=== PATIENT | male | born 1935 | race Caucasian/White ===

== ENCOUNTER 2016-11-25 12:59 | Emergency (ER) | payer MEDICARE, BC ==
[2016-11-25] MEDS ORDERED: Sodium Chloride 0.9% 10 ML Syringe FLUSH PRN (13:20)
[2016-11-25] MEDS ORDERED: methylPREDNISolone Sodium Succinate 125 MG/2 ML SDV IVPUSH ONE (13:21)
--- NOTE | 2016-11-25 15:22 | CR ---
Chest: Two views of the chest were obtained. Comparison: No previous chest x-ray. Diaphragms are flattened on the lateral view compatible with emphysematous change. Lung markings are slightly increased most likely due to mild fibrosis. No definite acute appearing infiltrates are seen. Bony structures are within normal limits for the patient's age. Impression: 1. Emphysematous change. 2. Mild increased lung markings most likely representing mild fibrosis. 3. Nothing acute is appreciated on two-view chest x-ray. Note: I do not have the benefit of any previous chest x-rays for comparison. Diagnostic code #2
[2016-11-25] MEDS ORDERED: Albuterol/Ipratropium 3.0-0.5 MG/3 ML Neb Soln NEB ONE (15:56)
--- NOTE | 2016-11-25 16:00 | EDM.PDOC ---
ED HPI GENERAL MEDICAL PROBLEM - General Chief Complaint: Respiratory Problem Stated Complaint: SOB Time Seen by Provider: 11/25/16 13:11 Source of Information: Reports: Patient, Family History Limitations: Reports: No Limitations - History of Present Illness INITIAL COMMENTS - FREE TEXT/NARRATIVE: The patient presents with increased shortness of breath over the past 3 weeks. He has been diagnosed with COPD. He is now oxygen dependent for the past 6 months. He is more short of breath at rest and with exertion. He has a cough that was productive at first but it is hard to get anything up now. He has some chest tightness at times. He has no fever or chills. He has no abdominal pain, nausea, or vomiting. He was given an antibiotic about 4 weeks ago and a steroid. He took the last dose of steroid today. It was prednisone 10mg. Onset: Gradual Duration: Week(s): (3) Location: Reports: Chest Quality: Reports: Other (Tightness at times) Severity: Mild Improves with: Reports: None Worsens with: Reports: None Associated Symptoms: Reports: Chest Pain, Cough, Shortness of Breath. Denies: Fever/Chills, Nausea/Vomiting - Related Data Allergies Allergy/AdvReac Type Severity Reaction Status Date / Time Iodinated Contrast Media - Allergy Hives Verified 11/25/16 13:08 Oral and blood thinner Allergy Other Uncoded 11/25/16 13:08 Home Meds: Home Meds Albuterol [Ventolin HFA] 2 - 4 inh INH Q4H PRN 11/25/16 [History] Budesonide/Formoterol [Symbicort 160-4.5 MCG] 2 inh INH BID 11/25/16 [History] Chlorthalidone 12.5 mg PO DAILY 11/25/16 [History] Levofloxacin [Levaquin] 750 mg PO DAILY #7 tablet 11/25/16 [Rx] Metoprolol Succinate 25 mg PO DAILY 11/25/16 [History] Prednisone [IJD: Prednisone] 10 mg PO DAILY #48 tab 11/25/16 [Rx] Past Medical History Cardiovascular History: Reports: Hypertension Respiratory History: Reports: COPD Social & Family History - Tobacco Use Smoking Status *Q: Former Smoker Used Tobacco, but Quit: Yes Month Tobacco Last Used: 2009 - Caffeine Use Caffeine Use: Reports: None - Recreational Drug Use Recreational Drug Use: No ED ROS GENERAL - Review of Systems Review Of Systems: See Below Constitutional: Reports: Fever, Chills HEENT: Reports: No Symptoms Respiratory: Reports: Shortness of Breath, Cough Cardiovascular: Reports: Chest Pain Endocrine: Reports: No Symptoms GI/Abdominal: Reports: No Symptoms : Reports: No Symptoms Musculoskeletal: Reports: No Symptoms Skin: Reports: No Symptoms Neurological: Reports: No Symptoms ED EXAM, GENERAL - Physical Exam Exam: See Below Exam Limited By: No Limitations General Appearance: Alert, No Apparent Distress Ears: Normal External Exam Nose: Normal Inspection Head: Atraumatic, Normocephalic Neck: Normal Inspection Respiratory/Chest: No Respiratory Distress, Decreased Breath Sounds Cardiovascular: Regular Rate, Rhythm, No Edema, No Murmur GI/Abdominal: Soft, Non-Tender, No Organomegaly, No Mass Extremities: Normal Inspection Neurological: Alert, Oriented, No Motor/Sensory Deficits EKG INTERPRETATION EKG Date: 11/25/16 Time: 13:33 Rhythm: NSR Rate (beats/min): 90 [place]: normal P-wave: present QRS: normal ST-T: normal QT: normal EKG Interpretation Comments: atrial premature complexes Course - Vital Signs Last Recorded V/S: Last Vital Signs Temp 97.5 F 11/25/16 13:03 Pulse 102 H 11/25/16 13:03 Resp 28 H 11/25/16 13:03 BP 160/88 H 11/25/16 13:03 Pulse Ox 96 11/25/16 16:03 - Orders/Labs/Meds Orders: Active Orders 24 hr Category Date Time Status Cardiac Monitoring [RC] . DIRECTED Care 11/25/16 13:20 Active EKG Documentation Completion [RC] STAT Care 11/25/16 13:20 Active Oxygen Therapy [RC] PRN Care 11/25/16 13:20 Active Peripheral IV Care [RC] . DIRECTED Care 11/25/16 13:21 Active RT Aerosol Therapy [RC] ASDIRECTED Care 11/25/16 15:56 Active Sodium Chloride 0.9% [Saline Flush] Med 11/25/16 13:20 Active 10 ml FLUSH ASDIRECTED PRN Peripheral IV Insertion Adult [OM.PC] Stat Oth 11/25/16 13:20 Ordered Medication Orders Sodium Chloride (Saline Flush) 10 ml FLUSH ASDIRECTED PRN PRN Reason: Keep Vein Open Last Admin: 11/25/16 13:43 Dose: 10 ml Labs: Laboratory Tests 11/25/16 11/25/16 11/25/16 Range/Units 13:40 13:40 13:40 WBC 12.35 H (4.23-9.07) K/mm3 RBC 4.81 (4.63-6.08) M/mm3 Hgb 14.0 (13.7-17.5) gm/L Hct 40.0 L (40.1-51.0) % MCV 83.2 (79.0-92.2) fl MCH 29.1 (25.7-32.2) pg MCHC 35.0 (32.2-35.5) g/dl RDW Std Deviation 39.2 (35.1-43.9) fL Plt Count 316 (163-337) K/mm3 MPV 8.3 L (9.4-12.3) fl Neut % (Auto) 85.7 H (34.0-67.9) % Lymph % (Auto) 3.7 L (21.8-53.1) % [place] % (Auto) 7.1 (5.3-12.2) % Eos % (Auto) 0.1 L (0.8-7.0) Baso % (Auto) 0.2 (0.1-1.2) % Neut # (Auto) 10.59 H (1.78-5.38) K/mm3 Lymph # (Auto) 0.46 L (1.32-3.57) K/mm3 [place] # (Auto) 0.88 H (0.30-0.82) K/mm3 Eos # (Auto) 0.01 L (0.04-0.54) K/mm3 Baso # (Auto) 0.02 (0.01-0.08) K/mm3 Manual Slide Review Abnormal smear D-Dimer, Quantitative 0.52 (0.19-0.59) mg/L Sodium 126 L (136-145) mEq/L Potassium 3.3 L (3.5-5.1) mEq/L Chloride 89 L (98-107) mEq/L Carbon Dioxide 28 (21-32) mEq/L Anion Gap 12.3 (5-15) BUN 18 (7-18) mg/dL Creatinine 1.3 (0.7-1.3) mg/dL Est Cr Clr Drug Dosing 45.32 mL/min Estimated GFR (MDRD) 53 (>60) mL/min BUN/Creatinine Ratio 13.8 L (14-18) Glucose 133 H (83-115) mg/dL Calcium 9.3 (8.5-10.1) mg/dL Total Bilirubin 1.0 (0.2-1.0) mg/dL AST 31 (15-37) U/L ALT 42 (16-63) U/L Alkaline Phosphatase 67 (46-116) U/L Troponin I 0.052 (0.00-0.056) ng/mL B-Natriuretic Peptide (0-100) pg/mL Total Protein 6.7 (6.4-8.2) g/dl Albumin 3.3 L (3.4-5.0) g/dl Globulin 3.4 gm/dL Albumin/Globulin Ratio 1.0 (1-2) 11/25/16 Range/Units 13:40 WBC (4.23-9.07) K/mm3 RBC (4.63-6.08) M/mm3 Hgb (13.7-17.5) gm/L Hct (40.1-51.0) % MCV (79.0-92.2) fl MCH (25.7-32.2) pg MCHC (32.2-35.5) g/dl RDW Std Deviation (35.1-43.9) fL Plt Count (163-337) K/mm3 MPV (9.4-12.3) fl Neut % (Auto) (34.0-67.9) % Lymph % (Auto) (21.8-53.1) % [place] % (Auto) (5.3-12.2) % Eos % (Auto) (0.8-7.0) Baso % (Auto) (0.1-1.2) % Neut # (Auto) (1.78-5.38) K/mm3 Lymph # (Auto) (1.32-3.57) K/mm3 [place] # (Auto) (0.30-0.82) K/mm3 Eos # (Auto) (0.04-0.54) K/mm3 Baso # (Auto) (0.01-0.08) K/mm3 Manual Slide Review D-Dimer, Quantitative (0.19-0.59) mg/L Sodium (136-145) mEq/L Potassium (3.5-5.1) mEq/L Chloride (98-107) mEq/L Carbon Dioxide (21-32) mEq/L Anion Gap (5-15) BUN (7-18) mg/dL Creatinine (0.7-1.3) mg/dL Est Cr Clr Drug Dosing mL/min Estimated GFR (MDRD) (>60) mL/min BUN/Creatinine Ratio (14-18) Glucose (83-115) mg/dL Calcium (8.5-10.1) mg/dL Total Bilirubin (0.2-1.0) mg/dL AST (15-37) U/L ALT (16-63) U/L Alkaline Phosphatase (46-116) U/L Troponin I (0.00-0.056) ng/mL B-Natriuretic Peptide 221 H (0-100) pg/mL Total Protein (6.4-8.2) g/dl Albumin (3.4-5.0) g/dl Globulin gm/dL Albumin/Globulin Ratio (1-2) Meds: Medications Generic Name Dose Route Start Last Admin Trade Name Freq PRN Reason Stop Dose Admin Sodium Chloride 10 ml 11/25/16 13:20 11/25/16 13:43 Saline Flush FLUSH 10 ml ASDIRECTED PRN Administration Keep Vein Open Discontinued Medications Generic Name Dose Route Start Last Admin Trade Name Freq PRN Reason Stop Dose Admin Albuterol/Ipratropium 3 ml 11/25/16 15:56 11/25/16 16:02 Duoneb 3.0-0.5 Mg/3 Ml NEB 11/25/16 15:57 3 ml ONETIME ONE Administration Methylprednisolone Sodium Succinate 125 mg 11/25/16 13:21 11/25/16 13:43 Solu-Medrol IVPUSH 11/25/16 13:22 125 mg ONETIME ONE Administration - Re-Assessments/Exams Free Text/Narrative Re-Assessment/Exam: 11/25/16 16:10 I ordered oxygen, IV saline lock, EKG, CXR, labs and solumedrol 125mg IV. His EKG shows a NSR with no acute changes. His CXR shows emphysematous change. Mild increased lung markings most likely representing mild fibrosis. His 11/25/16 16:11 His WBC is elevated at 12.35. His d-dimer is negative. His Na was low at 126. His K was low at 3.3. His troponin was negative. His BNP was slightly elevated at 221. I ordered a duo neb. He still feels short of breath. I called Dr Ellis the concrete stone fabricator personnel adviser and she recommended more steroids and some incruse. I do not think a I can send him home at this time. I will see if I can get him admitted. 11/25/16 17:[address] Woodward and she wanted him observation because it does not appear that he will meet inpatient criteria. He did not want to be observation. I will give him some levaquin and steroids at home. I will have Dr Campo check on the incruse. Departure - Departure Time of Disposition: 17:20 Disposition: Home, Self-Care 01 Condition: good Clinical Impression: COPD exacerbation - Discharge Information Prescriptions: Levofloxacin [Levaquin] 750 mg PO DAILY #7 tablet Prednisone [IJD: Prednisone] 10 mg PO DAILY #48 tab Referrals: Ritchie Campo Jr, MD [Primary Care Provider] - 1 Week Forms: ED Department Discharge Additional Instructions: Take the medication as prescribed. Please return if you are worse. Follow up with Dr Campo next week. - My Orders Last 24 Hours: My Active Orders 11/25/16 13:20 Cardiac Monitoring [RC] . DIRECTED EKG Documentation Completion [RC] STAT Oxygen Therapy [RC] PRN Sodium Chloride 0.9% [Saline Flush] 10 ml FLUSH ASDIRECTED PRN Peripheral IV Insertion Adult [OM.PC] Stat 11/25/16 13:21 Peripheral IV Care [RC] . DIRECTED 11/25/16 15:56 RT Aerosol Therapy [RC] ASDIRECTED - Assessment/Plan Last 24 Hours: My Active Orders 11/25/16 13:20 Cardiac Monitoring [RC] . DIRECTED EKG Documentation Completion [RC] STAT Oxygen Therapy [RC] PRN Sodium Chloride 0.9% [Saline Flush] 10 ml FLUSH ASDIRECTED PRN Peripheral IV Insertion Adult [OM.PC] Stat 11/25/16 13:21 Peripheral IV Care [RC] . DIRECTED 11/25/16 15:56 RT Aerosol Therapy [RC] ASDIRECTED
[2016-11-25 18:42] VITALS: BP 147/106
== END 2016-11-25 17:49 | disposition home or self-care (01) ==
LOC: JD.ED 12:59
DX: J44.1 Chronic obstructive pulmonary disease with (acute) exacerbation (principal); I10 Essential (primary) hypertension; Z79.899 Other long term (current) drug therapy; Z87.891 Personal history of nicotine dependence; Z91.041 Radiographic dye allergy status
CPT/HCPCS: 36415; 71020; 80053; 83880; 84484; 85025; 85379; 93005; 94664; 96374; 99285; J2930; J7050; 99284

== ENCOUNTER 2017-01-14 13:44 | Emergency (ER) | payer MEDICARE, BC ==
[2017-01-14] MEDS ORDERED: Albuterol/Ipratropium 3.0-0.5 MG/3 ML Neb Soln NEB ONE (14:32)
--- NOTE | 2017-01-14 14:38 | EDM.PDOC ---
ED HPI GENERAL MEDICAL PROBLEM - General Chief Complaint: Respiratory Problem Stated Complaint: SOB Time Seen by Provider: 01/14/17 14:18 Source of Information: Reports: Patient, Old Records (recent ER visit) History Limitations: Reports: No Limitations - History of Present Illness INITIAL COMMENTS - FREE TEXT/NARRATIVE: 81 year old male presents for evaluation and treatment of congestion and a cough. Patient has a past medical history of COPD. Reports he is on nebulizers, symbicort and albuterol inhaler as needed. States he has been using the albuterol neb every 4 hours. Patient reports today he feels increased congestion and that he cannot blow out. States he first appreciated the increased congestion and inability to blow out today. He is on 3L oxygen via nasal canula at home. Has not noticed any change in his symptoms with increasing the oxygen. Denies any productive cough, fevers or chest pain. Reports his chest feels heavy, reports this is chronic. Patient has not seen pulmonary in over a year. Scheduled to see them in February. Patient reports he saw his PCP, Dr. Campo, recently and was started on mucinex, has not noticed any improvement in his symptoms. Review of the patient's most recent ER visit shows he was started on prednisone and levaquin. Pulmonology was consulted. Recommended starting incruse. He was instructed to follow-up with his PC P about starting the incruse. Does not sound that he has started the incruse. Patient informs me he did take the antibiotics to completion but only tooke one dose of the prednisone. He does not like the way prednisone makes him feel and the side effects therefore he refuses to take further steroids. Treatments POLITICAL CONSULTANT: Reports: Other (see below) Other Treatments POLITICAL CONSULTANT: inhaler and nebs - Related Data Allergies Allergy/AdvReac Type Severity Reaction Status Date / Time Iodinated Contrast- Oral and Allergy Hives Verified 11/25/16 13:08 IV Dye blood thinner Allergy Other Uncoded 11/25/16 13:08 Home Meds: Home Meds Albuterol [Ventolin HFA] 2 - 4 inh INH Q4H PRN 11/25/16 [History] Budesonide/Formoterol [Symbicort 160-4.5 MCG] 2 inh INH BID 11/25/16 [History] Chlorthalidone 12.5 mg PO DAILY 11/25/16 [History] Metoprolol Succinate 25 mg PO DAILY 11/25/16 [History] Potassium Chloride 20 meq PO DAILY #5 tablet.er 01/14/17 [Rx] Umeclidinium [place] [Incruse Ellipta] 62.5 mcg IN DAILY #1 inhaler 01/14/17 [Rx ] Past Medical History Cardiovascular History: Reports: Hypertension Respiratory History: Reports: COPD, Other (See Below) Other Respiratory History: emphysema Psychiatric History: Reports: Anxiety, Depression - Past Surgical History GI Surgical History: Reports: Cholecystectomy Musculoskeletal Surgical History: Reports: Other (See Below) Other Musculoskeletal Surgeries/Procedures:: hip pain and shoulder pain-goes to a chiropractor on occasion Social & Family History - Tobacco Use Smoking Status *Q: Former Smoker Used Tobacco, but Quit: Yes Month Tobacco Last Used: 6 - Caffeine Use Caffeine Use: Reports: Coffee - Recreational Drug Use Recreational Drug Use: No ED ROS GENERAL - Review of Systems Review Of Systems: See Below Constitutional: Denies: Fever Respiratory: Reports: Shortness of Breath, Cough. Denies: Sputum Cardiovascular: Denies: Chest Pain (reports chest heaviness ) ED EXAM, GENERAL - Physical Exam Exam: See Below Exam Limited By: No Limitations General Appearance: Alert, WD/WN, No Apparent Distress Ears: Normal External Exam, Normal Canal, Normal TMs, Hearing Loss Nose: Normal Inspection Throat/Mouth: Normal Inspection, Normal Lips, Normal Gums, Normal Oropharynx, Normal Voice, No Airway Compromise Respiratory/Chest: No Respiratory Distress, Lungs Clear, No Accessory Muscle Use , Decreased Breath Sounds (generalized throughtout) Cardiovascular: Normal Peripheral Pulses, Regular Rate, Rhythm, No Murmur Neurological: Alert, Oriented, Normal Cognition Psychiatric: Normal Affect, Normal Mood Skin Exam: Warm, Dry, Normal Color EKG INTERPRETATION EKG Date: 01/14/17 Time: 14:45 Rhythm: NSR Rate (Beats/Min): 74 [place]: Normal P-Wave: Present QRS: Normal ST-T: Normal QT: Normal Comparison: No Change EKG Interpretation Comments: NSR at 74 bpm. No acute changes. Reviewed by myself and Dr. Duke. Course - Vital Signs Last Recorded V/S: Last Vital Signs Temp 36.9 C 01/14/17 13:54 Pulse 80 01/14/17 17:16 Resp 20 01/14/17 17:16 BP 129/70 01/14/17 17:16 Pulse Ox 99 01/14/17 17:16 - Orders/Labs/Meds Labs: Laboratory Tests 01/14/17 01/14/17 Range/Units 14:45 14:45 WBC 9.53 H (4.23-9.07) K/mm3 RBC 4.28 L (4.63-6.08) M/mm3 Hgb 12.1 L (13.7-17.5) gm/L Hct 36.5 L (40.1-51.0) % MCV 85.3 (79.0-92.2) fl MCH 28.3 (25.7-32.2) pg MCHC 33.2 (32.2-35.5) g/dl RDW Std Deviation 44.0 H (35.1-43.9) fL Plt Count 347 H (163-337) K/mm3 MPV 8.5 L (9.4-12.3) fl Neutrophils % (Manual) 79 H (40-60) % Band Neutrophils % 0 (0-10) % Lymphocytes % (Manual) 17 L (20-40) % Atypical Lymphs % 0 % Monocytes % (Manual) 3 (2-10) % Eosinophils % (Manual) 1 (0.8-7.0) % Basophils % (Manual) 0 L (0.2-1.2) Platelet Estimate Adequate RBC Morph Comment Normal Sodium 130 L (136-145) mEq/L Potassium 2.9 L (3.5-5.1) mEq/L Chloride 93 L (98-107) mEq/L Carbon Dioxide 29 (21-32) mEq/L Anion Gap 10.9 (5-15) BUN 10 (7-18) mg/dL Creatinine 1.2 (0.7-1.3) mg/dL Est Cr Clr Drug Dosing 49.10 mL/min Estimated GFR (MDRD) 58 (>60) mL/min BUN/Creatinine Ratio 8.3 L (14-18) Glucose 110 (83-115) mg/dL Calcium 8.8 (8.5-10.1) mg/dL Total Bilirubin 0.7 (0.2-1.0) mg/dL AST 26 (15-37) U/L ALT 25 (16-63) U/L Alkaline Phosphatase 76 (46-116) U/L CK-MB (CK-2) 2.9 (0-3.6) ng/ml Troponin I 0.030 (0.00-0.056) ng/mL C-Reactive Protein 0.5 (<1.0) mg/dL Total Protein 7.0 (6.4-8.2) g/dl Albumin 3.5 (3.4-5.0) g/dl Globulin 3.5 gm/dL Albumin/Globulin Ratio 1.0 (1-2) Meds: Medications Discontinued Medications Generic Name Dose Route Start Last Admin Trade Name Arin PRN Reason Stop Dose Admin Albuterol/Ipratropium 3 ml 01/14/17 14:32 01/14/17 14:50 Duoneb 3.0-0.5 Mg/3 Ml NEB 01/14/17 14:33 3 ml ONETIME ONE Administration Potassium Chloride 40 meq 01/14/17 16:04 01/14/17 16:12 Klor-Con M20 PO 01/14/17 16:05 40 meq ONETIME ONE Administration - Radiology Interpretation Free Text/Narrative:: chest 2 view shows emphyseamatous change. No acute intrathoracic process. - Re-Assessments/Exams Free Text/Narrative Re-Assessment/Exam: 01/14/17 16:21 Labs returned wbc is 9.53 with no bands, hgb is 12.1 and plts are 347 sodium is 130, potassium is 2.9 and chloride is 93. Patient was given 40 meq potassium here in the ER. creatinine is 1.2. glucose is 110 ckmb is within normal limits at 2.9 trop is within normal limits at 0.030 CRP is 0.5 I reviewed the labs, ekg and chest xray with the patient. I feel he is not having an exacerbation but his disease coarse is worsening. I feel it would be appropriate to start the incruse and see pulmonology as planned. Prednisone leatha may help with his symptoms but he refuses to take any more steroids. Discharge instructions as documented. Departure - Departure Time of Disposition: 16:36 Disposition: Home, Self-Care 01 Condition: Fair Clinical Impression: COPD (chronic obstructive pulmonary disease), Hypokalemia - Discharge Information Prescriptions: Potassium Chloride 20 meq PO DAILY #5 tablet.er Umeclidinium [place] [Incruse Ellipta] 62.5 mcg IN DAILY #1 inhaler Instructions: Hypokalemia, Chronic Obstructive Pulmonary Disease, [id number] Referrals: Ritchie Campo Jr, MD [Primary Care Provider] - Forms: ED Department Discharge Additional Instructions: Take potassium daily for 5 days. your first dose was given in the ER. may start this prescription tomorrow. Start the incruse daily. 1 puff daily. Follow-up with Dr. Campo this week or early next week. Continue with your current medications. Please return to the ER if your symptoms change or worsen.
[2017-01-14] MEDS ORDERED: Potassium Chloride 20 MEQ Tab.ER PO ONE (16:04)
[2017-01-14 17:18] VITALS: BP 129/70
--- NOTE | 2017-01-15 06:50 | CR ---
Chest: Two views of the chest were obtained. Comparison: Previous chest x-ray of 11/25/16. Heart size and mediastinum are normal. Lung markings mildly increased which appear stable. No acute infiltrates are seen. Bony structures are osteopenic. Impression: 1. Emphysematous change. Other stable findings. Nothing acute is seen. Diagnostic code #2
== END 2017-01-14 16:45 | disposition home or self-care (01) ==
LOC: JD.ED 13:44
DX: J43.9 Emphysema, unspecified (principal); E87.6 Hypokalemia; I10 Essential (primary) hypertension; F32.9 Major depressive disorder, single episode, unspecified; F41.9 Anxiety disorder, unspecified; Z87.891 Personal history of nicotine dependence; Z88.8 Allergy status to other drugs, medicaments and biological substances; Z91.041 Radiographic dye allergy status; Z79.899 Other long term (current) drug therapy
CPT/HCPCS: 36415; 71020; 80053; 82553; 84484; 85025; 86140; 93005; 94664; 99285; A9270; 99284

== ENCOUNTER 2017-01-24 14:22 | Inpatient (IN) | payer MEDICARE, BC ==
[2017-01-24] MEDS ORDERED: Sodium Chloride 0.9% 10 ML Syringe FLUSH PRN (15:06)
[2017-01-24] MEDS ORDERED: Albuterol/Ipratropium 3.0-0.5 MG/3 ML Neb Soln NEB ONE (15:07)
[2017-01-24] MEDS ORDERED: methylPREDNISolone Sodium Succinate 125 MG/2 ML SDV IVPUSH ONE (15:07)
--- NOTE | 2017-01-24 16:09 | EDM.PDOC ---
ED HPI GENERAL MEDICAL PROBLEM - General Chief Complaint: Respiratory Problem Stated Complaint: COPD CANT BREATHE Time Seen by Provider: 01/24/17 14:47 Source of Information: Reports: Patient History Limitations: Reports: No Limitations - History of Present Illness INITIAL COMMENTS - FREE TEXT/NARRATIVE: The patient presents with shortness of breath. This has been going on for a few months. He has been seen here twice and seen his doctor a few times. He has been on steroids a few times. Back in November he was here and I ordered some steroids. He took the steroids for 1 day and stopped. I called Dr Ellis for him at that time and she recommended the steroids and incruse. The patient was going to talk to his doctor about it. The patient came back last month for the same and he was started on incruse. That has not helped. He is short of breath at rest. He is on home oxygen. He denies fever or chills. He has a dry cough. He was able to get some phlegm up a few weeks ago but nothing now. He has been taking his symbacort and albuterol with no relief. He denies chest pain. He is congested. Onset: Gradual Duration: Week(s): Severity: Moderate Improves with: Reports: None Worsens with: Reports: None Associated Symptoms: Reports: Shortness of Breath. Denies: Chest Pain, Fever/ Chills, Nausea/Vomiting - Related Data Allergies Allergy/AdvReac Type Severity Reaction Status Date / Time Iodinated Contrast- Oral and Allergy Hives Verified 01/24/17 14:49 IV Dye blood thinner Allergy Other Uncoded 11/25/16 13:08 Home Meds: Home Meds Albuterol [Ventolin HFA] 2 - 4 inh INH Q4H PRN 11/25/16 [History] Budesonide/Formoterol [Symbicort 160-4.5 MCG] 2 inh INH BID 11/25/16 [History] Chlorthalidone 12.5 mg PO DAILY 11/25/16 [History] Metoprolol Succinate 25 mg PO DAILY 11/25/16 [History] Potassium Chloride 20 meq PO DAILY #5 tablet.er 01/14/17 [Rx] Umeclidinium [place] [Incruse Ellipta] 62.5 mcg IN DAILY #1 inhaler 01/14/17 [Rx ] Past Medical History Cardiovascular History: Reports: Hypertension Respiratory History: Reports: COPD, Other (See Below) Other Respiratory History: emphysema Psychiatric History: Reports: Anxiety, Depression - Past Surgical History GI Surgical History: Reports: Cholecystectomy Musculoskeletal Surgical History: Reports: Other (See Below) Other Musculoskeletal Surgeries/Procedures:: hip pain and shoulder pain-goes to a chiropractor on occasion Social & Family History - Tobacco Use Smoking Status *Q: Former Smoker Used Tobacco, but Quit: Yes Month Tobacco Last Used: 6 - Caffeine Use Caffeine Use: Reports: Coffee - Recreational Drug Use Recreational Drug Use: No ED ROS GENERAL - Review of Systems Review Of Systems: See Below Constitutional: Reports: No Symptoms HEENT: Reports: No Symptoms Respiratory: Reports: Shortness of Breath Cardiovascular: Reports: No Symptoms Endocrine: Reports: No Symptoms GI/Abdominal: Reports: No Symptoms : Reports: No Symptoms Musculoskeletal: Reports: No Symptoms Skin: Reports: No Symptoms Neurological: Reports: No Symptoms ED EXAM, GENERAL - Physical Exam Exam: See Below Exam Limited By: No Limitations General Appearance: Alert, No Apparent Distress Ears: Normal External Exam Nose: Normal Inspection Head: Atraumatic, Normocephalic Neck: Normal Inspection Respiratory/Chest: No Respiratory Distress, Decreased Breath Sounds Cardiovascular: Regular Rate, Rhythm, No Edema, No Murmur GI/Abdominal: Soft, Non-Tender, No Organomegaly, No Mass Back Exam: Normal Inspection Extremities: Normal Inspection EKG INTERPRETATION EKG Date: 01/24/17 Time: 15:24 Rhythm: NSR Rate (Beats/Min): 76 [place]: Normal P-Wave: Present QRS: Normal ST-T: Normal QT: Normal EKG Interpretation Comments: PAC Course - Vital Signs Last Recorded V/S: Last Vital Signs Temp 97.7 F 01/24/17 14:46 Pulse 90 01/24/17 14:46 Resp 26 H 01/24/17 14:46 BP 123/87 01/24/17 14:46 Pulse Ox 98 01/24/17 16:25 - Orders/Labs/Meds Orders: Active Orders 24 hr Category Date Time Status Cardiac Monitoring [RC] . DIRECTED Care 01/24/17 15:06 Active EKG Documentation Completion [RC] STAT Care 01/24/17 15:06 Active Oxygen Therapy [RC] PRN Care 01/24/17 15:06 Active Peripheral IV Care [RC] . DIRECTED Care 01/24/17 15:07 Active RT Aerosol Therapy [RC] ASDIRECTED Care 01/24/17 15:07 Active Chest 1V Frontal [CR] Stat Exams 01/24/17 15:07 Taken Sodium Chloride 0.9% [Saline Flush] Med 01/24/17 15:06 Active 10 ml FLUSH ASDIRECTED PRN Peripheral IV Insertion Adult [OM.PC] Stat Oth 01/24/17 15:06 Ordered Medication Orders Sodium Chloride (Saline Flush) 10 ml FLUSH ASDIRECTED PRN PRN Reason: Keep Vein Open Last Admin: 01/24/17 15:50 Dose: 10 ml Labs: Laboratory Tests 01/24/17 01/24/17 Range/Units 15:45 15:45 WBC 9.11 H (4.23-9.07) K/mm3 RBC 4.24 L (4.63-6.08) M/mm3 Hgb 11.9 L (13.7-17.5) gm/L Hct 35.7 L (40.1-51.0) % MCV 84.2 (79.0-92.2) fl MCH 28.1 (25.7-32.2) pg MCHC 33.3 (32.2-35.5) g/dl RDW Std Deviation 44.1 H (35.1-43.9) fL Plt Count 382 H (163-337) K/mm3 MPV 8.6 L (9.4-12.3) fl Neut % (Auto) 74.0 H (34.0-67.9) % Lymph % (Auto) 13.4 L (21.8-53.1) % [place] % (Auto) 10.4 (5.3-12.2) % Eos % (Auto) 1.1 (0.8-7.0) Baso % (Auto) 0.7 (0.1-1.2) % Neut # (Auto) 6.74 H (1.78-5.38) K/mm3 Lymph # (Auto) 1.22 L (1.32-3.57) K/mm3 [place] # (Auto) 0.95 H (0.30-0.82) K/mm3 Eos # (Auto) 0.10 (0.04-0.54) K/mm3 Baso # (Auto) 0.06 (0.01-0.08) K/mm3 Sodium 124 L (136-145) mEq/L Potassium 3.6 (3.5-5.1) mEq/L Chloride 88 L (98-107) mEq/L Carbon Dioxide 28 (21-32) mEq/L Anion Gap 11.6 (5-15) BUN 8 (7-18) mg/dL Creatinine 1.0 (0.7-1.3) mg/dL Est Cr Clr Drug Dosing TNP Estimated GFR (MDRD) > 60 (>60) mL/min BUN/Creatinine Ratio 8.0 L (14-18) Glucose 93 (83-115) mg/dL Calcium 9.3 (8.5-10.1) mg/dL Total Bilirubin 0.9 (0.2-1.0) mg/dL AST 29 (15-37) U/L ALT 26 (16-63) U/L Alkaline Phosphatase 66 (46-116) U/L Troponin I 0.042 (0.00-0.056) ng/mL Total Protein 6.9 (6.4-8.2) g/dl Albumin 3.6 (3.4-5.0) g/dl Globulin 3.3 gm/dL Albumin/Globulin Ratio 1.1 (1-2) Meds: Medications Generic Name Dose Route Start Last Admin Trade Name Arin PRN Reason Stop Dose Admin Sodium Chloride 10 ml 01/24/17 15:06 01/24/17 15:50 Saline Flush FLUSH 10 ml ASDIRECTED PRN Administration Keep Vein Open Discontinued Medications Generic Name Dose Route Start Last Admin Trade Name Arin PRN Reason Stop Dose Admin Albuterol/Ipratropium 3 ml 01/24/17 15:07 01/24/17 16:29 Duoneb 3.0-0.5 Mg/3 Ml NEB 01/24/17 15:08 3 ml ONETIME ONE Administration Methylprednisolone Sodium Succinate 125 mg 01/24/17 15:07 01/24/17 16:47 Solu-Medrol IVPUSH 01/24/17 15:08 125 mg ONETIME ONE Administration - Re-Assessments/Exams Free Text/Narrative Re-Assessment/Exam: 01/24/17 16:16 I ordered oxygen, IV saline lock, solu-medrol, duo-neb, labs, CXR and EKG. His EKG shows a NSR with no acute changes. His CXR shows emphysema but no infiltrates. 01/24/17 17:26 His WBC is elevated at 9.11. His Hgb is low at 11.9. His Na is low at 124. His troponin is negative. He feels a little better after the solu-medrol and duoneb. I feel he may need to be admitted to the hospital. 01/24/17 17:[address] Crane and he agreed to the admission. At one time his oxygen saturations went down to 89%. Departure - Departure Time of Disposition: 17:50 Disposition: Admitted As Inpatient 67 Condition: Fair Clinical Impression: COPD exacerbation - Discharge Information Forms: ED Department Discharge - My Orders Last 24 Hours: My Active Orders 01/24/17 15:06 Cardiac Monitoring [RC] . DIRECTED EKG Documentation Completion [RC] STAT Oxygen Therapy [RC] PRN Sodium Chloride 0.9% [Saline Flush] 10 ml FLUSH ASDIRECTED PRN Peripheral IV Insertion Adult [OM.PC] Stat 01/24/17 15:07 Peripheral IV Care [RC] . DIRECTED RT Aerosol Therapy [RC] ASDIRECTED Chest 1V Frontal [CR] Stat - Assessment/Plan Last 24 Hours: My Active Orders 01/24/17 15:06 Cardiac Monitoring [RC] . DIRECTED EKG Documentation Completion [RC] STAT Oxygen Therapy [RC] PRN Sodium Chloride 0.9% [Saline Flush] 10 ml FLUSH ASDIRECTED PRN Peripheral IV Insertion Adult [OM.PC] Stat 01/24/17 15:07 Peripheral IV Care [RC] . DIRECTED RT Aerosol Therapy [RC] ASDIRECTED Chest 1V Frontal [CR] Stat
--- NOTE | 2017-01-24 18:05 | CR ---
Chest: Portable view of the chest was obtained. Comparison: Previous chest x-ray of 01/14/17. Heart size and mediastinum are within normal limits and stable in appearance from previous exam. Lungs are hyperinflated compatible with emphysematous change. No acute infiltrates are seen. Minimal scoliosis is noted within the spine. Impression: 1. Emphysematous change. Nothing acute is appreciated on portable chest x-ray. Diagnostic code #2
--- NOTE | 2017-01-24 18:22 | PCM.HP ---
H&P History of Present Illness - General Date of Service: 01/24/17 Admit Problem/Dx: COPD Exacerbation Source of Information: Patient, Family, Old Records, Provider, RN Notes Reviewed , Significant Other History Limitations: Reports: Respiratory Distress - History of Present Illness Initial Comments - Free Text/Narative: This is an 81 yo elderly white male with past medical hx/o COPD, Chronic Respiratory Failure on 3L [place], Anxiety and Depression who presents to ED with complaints of worsening shortness of breath that has been going on for a few months now. He has been seen here in ED for the past couple of months for the same chief of complaint. Patient has been treated with Prednisone but w/o much success. Patient carries a hx/o Advanced Emphysema. He used to smoke 2 ppd and quit 6-7 years ago. He is currently on 3L [place] supplemental O2. He follows Dr. Emmanuel in [place] for his pulmonary care. His last visit with him was about a year ago. Patient reports associated non-productive cough. He denies any fever or chills. He admits to being compliant with his maintenance medications. Patient lives alone and is very independent. His initial work up in ED shows a CBC remarkable for WBC of 9.11, RBC of 4.24, hemoglobin of 11.9, hematocrit of 35.7, platelet count of 382, neutrophils of 74 % lymphocytes of 13.4% and monocyte count of 0.95. His chemistry is remarkable for sodium of 124 and chloride of 88. His chest x-ray shows hyperinflated lungs. Patient is being admitted for acute exacerbation of COPD. He is DNR/DNI. - Related Data Allergies/Adverse Reactions: Allergies Allergy/AdvReac Type Severity Reaction Status Date / Time Iodinated Contrast- Oral and Allergy Hives Verified 01/24/17 14:49 IV Dye blood thinner Allergy Other Uncoded 11/25/16 13:08 Home Medications: Home Meds Albuterol [Ventolin HFA] 2 - 4 inh INH Q4H PRN 11/25/16 [History] Budesonide/Formoterol [Symbicort 160-4.5 MCG] 2 inh INH BID 11/25/16 [History] Chlorthalidone 12.5 mg PO DAILY 11/25/16 [History] Metoprolol Succinate 25 mg PO DAILY 11/25/16 [History] Latanoprost [Xalatan 0.005% [facility]] 2.5 ml EYEBOTH BEDTIME 01/24/17 [History ] Lutein 1 cap PO BID 01/24/17 [History] Prednisone [IJD: Prednisone] 10 mg PO DAILY 01/24/17 [History] Past Medical History HEENT History: Reports: Impaired Vision Cardiovascular History: Reports: Hypertension Respiratory History: Reports: COPD, Other (See Below) Other Respiratory History: emphysema Psychiatric History: Reports: Anxiety, Depression - Past Surgical History GI Surgical History: Reports: Cholecystectomy Musculoskeletal Surgical History: Reports: Other (See Below) Other Musculoskeletal Surgeries/Procedures:: hip pain and shoulder pain-goes to a chiropractor on occasion Social & Family History - Family History Family Medical History: Noncontributory - Tobacco Use Smoking Status *Q: Former Smoker Used Tobacco, but Quit: Yes Month Tobacco Last Used: 6 - Caffeine Use Caffeine Use: Reports: Coffee - Recreational Drug Use Recreational Drug Use: No H&P Review of Systems - Review of Systems: Review Of Systems: See Below General: Denies: Fever, Chills, Malaise, Weakness, Fatigue, Diaphoresis, Decreased Appetite HEENT: Reports: No Symptoms Pulmonary: Reports: Shortness of Breath Cardiovascular: Reports: Dyspnea on Exertion. Denies: Chest Pain, Lightheadedness, Syncope Gastrointestinal: Denies: Abdominal Pain, Vomiting Genitourinary: Reports: No Symptoms Musculoskeletal: Reports: No Symptoms Skin: Denies: Cyanosis, Rash Psychiatric: Denies: Confusion, Depression, Anxiety Neurological: Denies: Confusion Exam - Exam Exam: See Below - Vital Signs Vital Signs: Last Vital Signs Temp 36.5 C 01/24/17 14:46 Pulse 90 01/24/17 14:46 Resp 26 H 01/24/17 14:46 BP 123/87 01/24/17 14:46 Pulse Ox 98 01/24/17 16:25 Weight: 71.668 kg - Exam Quality Assessment: Supplemental Oxygen General: Alert, Oriented, Cooperative, Mild Distress HEENT: Conjunctiva Clear, EACs Clear, EOMI, Hearing Intact, Mucosa Moist & [place] , Nares Patent, Normal Nasal Septum, Posterior Pharynx Clear, Pupils Equal, Pupils Reactive, TMs Clear, Other (No accessory muscle use) Neck: Supple, Trachea Midline, Full Range of Motion. No: JVD Lungs: Clear to Auscultation, Other (Inaudible gas exchange). No: Normal Respiratory Effort Cardiovascular: Regular Rate, Regular Rhythm GI/Abdominal Exam: Normal Bowel Sounds, Soft, Non-Tender, No Organomegaly, No Distention, No Abnormal Bruit, No Mass (Male) Exam: Deferred Rectal (Males) Exam: Deferred Back Exam: Normal Inspection, Decreased Range of Motion Extremities: Normal Inspection, Normal Range of Motion, Non-Tender, No Pedal Edema, Normal Capillary Refill Peripheral Pulses: 2+: Posterior Tibial (L), Posterior Tibial (R), Dorsalis Pedis (L), Dorsalis Pedis (R) Skin: Warm, Dry, Intact Neuro Extensive - Mental Status: Oriented x3, Normal Cognition, Memory Intact Neuro Extensive - Motor, Sensory, Reflexes: CN II-XII Intact, Normal Gait Psychiatric: Alert, Normal Affect, Normal Mood. No: Anxious - Patient Data Result Diagrams: 01/24/17 15:45 01/24/17 15:45 *Q Meaningful Use (ADM) - VTE *Q VTE Criteria *Q: - Stroke *Q Stroke Criteria *Q: - AMI *Q AMI Criteria *Q: Problem List Initiated/Reviewed/Updated: Yes Orders Last 24hrs: Medication Orders Sodium Chloride (Saline Flush) 10 ml FLUSH ASDIRECTED PRN PRN Reason: Keep Vein Open Last Admin: 01/24/17 15:50 Dose: 10 ml Assessment/Plan Comment:: Assessment: Acute: COPD Exacerbation - Has Advanced Emphysema on CXR - Failed Outpatient Treatment - He has been seen in ED for the past couple of months - He follows Dr. Emmanuel - IV Steroids, Scheduled and PRN Bronchodilators, IV Morphine, IV Magnesium Sulfate, IV Azithromycin, Supplemental O2 - FV Q2 awake - Decongestant/Expectorant - PRN IVP Morphine for Dyspnea - Sputum Cx/Sx Thrombocytosis - Mildly Elevated - Platelet of 382 - Possibly stress - Will monitor Hyponatremia - Na 124 - Likely from Pulmonary Insufficiency - Due to low KEYSHA level (converts AI to AII) --> low levels of Aldosterone - Salt Tablet 1 1tab po TID - Monitor levels Chronic: Respiratory Failure, On 3L [place] baseline, Currently at 2L NC HTN Anxiety Depression Plan: Admit to inpatient with Pulse-Ox Routine AM Labs Resume Home Medications PRN Medications PT/OT/RT consult SW/CM for d/c planning Additional orders as above Code status: DNR/DNI
[2017-01-24] MEDS ORDERED: Acetaminophen/HYDROcodone 325-5 MG Tab PO PRN (18:29)
[2017-01-24] MEDS ORDERED: Acetaminophen 325 MG Tab PO PRN (18:29)
[2017-01-24] MEDS ORDERED: Morphine 2 MG/ML Syringe IVPUSH PRN (18:29)
[2017-01-24] MEDS ORDERED: Ondansetron 4 MG/2 ML SDV IV PRN (18:31)
[2017-01-24] MEDS ORDERED: Temazepam 7.5 MG Cap PO PRN (18:31)
[2017-01-24] MEDS ORDERED: Docusate Sodium 100 MG Cap PO PRN (18:31)
[2017-01-24] MEDS ORDERED: Bisacodyl 5 MG Tab PO PRN (18:31)
[2017-01-24] MEDS ORDERED: Promethazine 12.5 MG in Sodium Chloride 0.9% 50 ML IV PRN (18:31)
[2017-01-24] MEDS ORDERED: Polyethylene Glycol 3350 Powder 17 GM Packet PO PRN (18:31)
[2017-01-24] MEDS ORDERED: Metoprolol Tartrate 5 MG/5 ML SDV IVPUSH PRN (18:34)
[2017-01-24] MEDS ORDERED: hydrALAZINE 20 MG/ML SDV IVPUSH PRN (18:34)
[2017-01-24] MEDS ORDERED: Azithromycin 500 MG in Sodium Chloride 0.9% 250 ML IV ONE (18:35)
[2017-01-24] MEDS ORDERED: Magnesium Sulfate/Water 2 GM in Premix Bag 1 BAG IV ONE (18:36)
[2017-01-24] MEDS: Azithromycin 500 MG in Sodium Chloride 0.9% 250 ML IV SCH (19:42)
[2017-01-24] MEDS: guaiFENesin 600 MG Tab.ER PO SCH (20:00)
[2017-01-24] MEDS: Latanoprost 0.005% Ophth Soln 2.5 ML Bottle EYEBOTH SCH (20:01)
[2017-01-24] MEDS: LORazepam 2 MG/ML MDV IVPUSH PRN (20:14)
[2017-01-24] MEDS ORDERED: Potassium Chloride/Sodium Chloride Tab PO PRN (20:19)
[2017-01-24] MEDS: Formoterol/Mometasone 200-5 MCG 8.8 GM Inhaler IH SCH (20:38)
[2017-01-24] MEDS: methylPREDNISolone Sodium Succinate 40 MG/1 ML SDV IVPUSH SCH (22:13)
[2017-01-25] MEDS: Morphine 2 MG/ML Syringe IVPUSH PRN ×2 (00:38→06:45)
[2017-01-25] MEDS: methylPREDNISolone Sodium Succinate 40 MG/1 ML SDV IVPUSH SCH ×2 (06:41→15:40)
[2017-01-25] MEDS: LUTEIN PO SCH ×3 (07:58→21:09)
[2017-01-25] MEDS ORDERED: Diphtheria,Pertussis(Acell),Tetanus Vaccine 0.5 ML SDV IM ONE (08:00)
[2017-01-25] MEDS: Metoprolol Succinate 25 MG Tab.ER PO SCH (08:34)
[2017-01-25] MEDS: Potassium Chloride/Sodium Chloride Tab PO SCH ×3 (08:35→21:09)
[2017-01-25] MEDS: Potassium Chloride 20 MEQ Tab.ER PO SCH (08:35)
[2017-01-25] MEDS: Magnesium Oxide 400 MG Tab PO SCH ×2 (08:35→21:05)
[2017-01-25] MEDS: guaiFENesin 600 MG Tab.ER PO SCH ×2 (08:35→21:05)
[2017-01-25] MEDS ORDERED: UMECLIDINIUM BROMIDE 62.5 MCG SCH (09:00)
[2017-01-25] MEDS ORDERED: Metoprolol Succinate 25 MG Tab.ER PO SCH (09:00)
[2017-01-25] MEDS: CHLORTHALIDONE 12.5 MG PO SCH (09:33)
[2017-01-25] MEDS: Albuterol/Ipratropium 3.0-0.5 MG/3 ML Neb Soln NEB PRN ×2 (10:02→15:47)
[2017-01-25] MEDS: Formoterol/Mometasone 200-5 MCG 8.8 GM Inhaler IH SCH ×2 (10:07→21:24)
[2017-01-25] MEDS: Morphine 15 MG Tab PO SCH ×2 (12:40→18:50)
[2017-01-25] MEDS: Azithromycin 500 MG in Sodium Chloride 0.9% 250 ML IV SCH (18:51)
[2017-01-25] MEDS: Latanoprost 0.005% Ophth Soln 2.5 ML Bottle EYEBOTH SCH (21:05)
[2017-01-25] MEDS: Temazepam 15 MG Cap PO PRN (21:08)
--- NOTE | 2017-01-25 22:44 | PCM.PN ---
- General Info Date of Service: 01/25/17 Admission Dx/Problem (Free Text): COPD Exacerbation Subjective Update: Follow Up Functional Status: Reports: Pain Controlled, Tolerating Diet, Urinating. Denies : New Symptoms - Review of Systems General: Denies: Fever, Weakness, Fatigue, Malaise, Chills HEENT: Reports: No Symptoms, Other (Hearing Impairment) Pulmonary: Reports: Shortness of Breath, Cough. Denies: Pleuritic Chest Pain, Wheezing Cardiovascular: Reports: Dyspnea on Exertion Gastrointestinal: Denies: Abdominal Pain, Nausea, Vomiting Genitourinary: Reports: No Symptoms Musculoskeletal: Reports: No Symptoms Skin: Reports: No Symptoms Neurological: Reports: No Symptoms. Denies: Difficulty Walking, Weakness, Gait Disturbance Psychiatric: Denies: Depression, Anxiety, Agitation Systems Review Comment:: No overnight issues. He feels pretty good. His breathing is better. He has no new complaints. His sodium is now at 128. - Patient Data Vitals - Most Recent: Last Vital Signs Temp 36.4 C 01/25/17 19:36 Pulse 81 01/25/17 19:36 Resp 18 01/25/17 19:36 BP 108/60 01/25/17 19:36 Pulse Ox 97 01/25/17 19:36 Weight - Most Recent: 69.717 kg I&O - Last 24 Hours: Intake & Output 01/25/17 01/25/17 01/25/17 06:59 14:59 22:59 Intake Total 263 401 1796 Output Total 1650 2250 Balance -1300 300 -170 Lab Results Last 24 Hours: Laboratory Results - last 24 hr 01/25/17 01/25/17 Range/Units 06:24 06:24 WBC 4.54 (4.23-9.07) K/mm3 RBC 4.49 L (4.63-6.08) M/mm3 Hgb 12.8 L (13.7-17.5) gm/L Hct 37.6 L (40.1-51.0) % MCV 83.7 (79.0-92.2) fl MCH 28.5 (25.7-32.2) pg MCHC 34.0 (32.2-35.5) g/dl RDW Std Deviation 44.1 H (35.1-43.9) fL Plt Count 378 H (163-337) K/mm3 MPV 8.4 L (9.4-12.3) fl Neut % (Auto) 89.5 H (34.0-67.9) % Lymph % (Auto) 7.9 L (21.8-53.1) % [place] % (Auto) 2.2 L (5.3-12.2) % Eos % (Auto) 0 L (0.8-7.0) Baso % (Auto) 0.0 L (0.1-1.2) % Neut # (Auto) 4.06 (1.78-5.38) K/mm3 Lymph # (Auto) 0.36 L (1.32-3.57) K/mm3 [place] # (Auto) 0.10 L (0.30-0.82) K/mm3 Eos # (Auto) 0.00 L (0.04-0.54) K/mm3 Baso # (Auto) 0.00 L (0.01-0.08) K/mm3 Manual Slide Review Abnormal smear Sodium 128 L (136-145) mEq/L Potassium 3.8 (3.5-5.1) mEq/L Chloride 91 L (98-107) mEq/L Carbon Dioxide 27 (21-32) mEq/L Anion Gap 13.8 (5-15) BUN 11 (7-18) mg/dL Creatinine 1.1 (0.7-1.3) mg/dL Est Cr Clr Drug Dosing 52.82 mL/min Estimated GFR (MDRD) > 60 (>60) mL/min BUN/Creatinine Ratio 10.0 L (14-18) Glucose 128 H (83-115) mg/dL Calcium 9.1 (8.5-10.1) mg/dL Magnesium 1.9 (1.8-2.4) mg/dl C-Reactive Protein < 0.2 (<1.0) mg/dL Bahman Results Last 24 Hours: Microbiology 01/24/17 19:30 Gram Stain - Final Sputum - Expectorated Sputum Culture - Preliminary Med Orders - Current: Current Medications Acetaminophen (Tylenol) 650 mg PO Q4H PRN PRN Reason: Pain (Mild 1-3)/fever Hydrocodone Bitart/Acetaminophen ([place] 325-5 Mg) 1 tab PO Q4H PRN PRN Reason: Pain (moderate 4-6) Albuterol/Ipratropium (Duoneb 3.0-0.5 Mg/3 Ml) 3 ml NEB Q4H PRN PRN Reason: Shortness Of Breath/wheezing Last Admin: 01/25/17 15:47 Dose: 3 ml Bisacodyl (Dulcolax) 5 mg PO DAILY PRN PRN Reason: Constipation Docusate Sodium (Colace) 100 mg PO BID PRN PRN Reason: Constipation Guaifenesin (Mucinex) 600 mg PO BID [facility] Last Admin: 01/25/17 21:05 Dose: 600 mg Hydralazine HCl (Apresoline) 10 mg IVPUSH Q4H PRN PRN Reason: Hypertension Azithromycin 500 mg/ Sodium (Chloride) 250 mls @ 250 mls/hr IV Q24H [facility] Last Admin: 01/25/17 18:51 Dose: 250 mls/hr Promethazine HCl 12.5 mg/ (Sodium Chloride) 50.5 mls @ 100 mls/hr IV Q6H PRN PRN Reason: Nausea/Vomiting Latanoprost (Xalatan 0.005% Ophth Soln) 0 ml EYEBOTH BEDTIME [facility] Last Admin: 01/25/17 21:05 Dose: 1 drop Lorazepam (Ativan) 0.5 mg IVPUSH Q4H PRN; Protocol PRN Reason: Anxiety Last Admin: 01/24/17 20:14 Dose: 0.5 mg Magnesium Oxide (Magnesium Oxide) 400 mg PO BID [facility] Last Admin: 01/25/17 21:05 Dose: 400 mg Methylprednisolone Sodium Succinate (Solu-Medrol) 80 mg IVPUSH Q8H [facility] Last Admin: 01/25/17 15:40 Dose: 80 mg Metoprolol Succinate (Toprol Xl) 25 mg PO DAILY [facility] Last Admin: 01/25/17 08:34 Dose: 25 mg Metoprolol Tartrate (Lopressor) 5 mg IVPUSH Q4H PRN PRN Reason: Tachycardia Mometasone Furoate/Formoterol Fumar (Dulera 200-5 Mcg) 0 puff IH BID [facility] Last Admin: 01/25/17 21:24 Dose: 2 inhalation Morphine Sulfate (Morphine) 1 mg IVPUSH Q4H PRN PRN Reason: Other Stop: 01/29/17 18:31 Last Admin: 01/25/17 06:45 Dose: 1 mg Morphine Sulfate (Morphine) 15 mg PO Q8H [facility] Last Admin: 01/25/17 18:50 Dose: 15 mg Ondansetron HCl (Zofran) 4 mg IV Q6H PRN PRN Reason: Nausea/Vomiting Oral Electrolytes (Thermotabs) 1 each PO TID [facility] Last Admin: 01/25/17 21:09 Dose: 1 each Lutein 1 Cap 0 each PO BID [facility] Last Admin: 01/25/17 21:09 Dose: Not Given Chlorthalidone 12. (5mg) 0 each PO DAILY [facility] Last Admin: 01/25/17 09:33 Dose: Not Given Polyethylene Glycol (Miralax) 17 gm PO DAILY PRN PRN Reason: Constipation Potassium Chloride (Klor-Con M20) 20 meq PO DAILY [facility] Last Admin: 01/25/17 08:35 Dose: 20 meq Senna/Docusate Sodium (Senna Plus) 1 tab PO BID PRN PRN Reason: Constipation Sodium Chloride (Saline Flush) 10 ml FLUSH ASDIRECTED PRN PRN Reason: Keep Vein Open Last Admin: 01/24/17 15:50 Dose: 10 ml Temazepam (Restoril) 15 mg PO BEDTIME PRN PRN Reason: Sleep Last Admin: 01/25/17 21:08 Dose: 15 mg Discontinued Medications Albuterol/Ipratropium (Duoneb 3.0-0.5 Mg/3 Ml) 3 ml NEB ONETIME ONE Stop: 01/24/17 15:08 Last Admin: 01/24/17 16:29 Dose: 3 ml Diphtheria/Tetanus/Acell Pertussis (Adacel) 0.5 ml IM .ONCE ONE Stop: 01/25/17 08:01 Azithromycin 500 mg/ Sodium (Chloride) 250 mls @ 250 mls/hr IV ONETIME ONE Stop: 01/24/17 19:34 Last Admin: 01/24/17 19:45 Dose: Not Given Magnesium Sulfate 2 gm/ Premix 50 mls @ 25 mls/hr IV ONETIME ONE Stop: 01/24/17 20:35 Last Admin: 01/24/17 19:43 Dose: 25 mls/hr Methylprednisolone Sodium Succinate (Solu-Medrol) 125 mg IVPUSH ONETIME ONE Stop: 01/24/17 15:08 Last Admin: 01/24/17 16:47 Dose: 125 mg Morphine Sulfate (Morphine) 0.5 mg IVPUSH Q4H PRN PRN Reason: Other Stop: 01/29/17 18:31 Last Admin: 01/24/17 19:37 Dose: 0.5 mg Oral Electrolytes (Thermotabs) 1 each PO TID PRN PRN Reason: Other Umeclidinium [place] (62.5mcg Inh) 0 each INH DAILY [facility] Last Admin: 01/25/17 09:34 Dose: Not Given Temazepam (Restoril) 7.5 mg PO BEDTIME PRN PRN Reason: Sleep - Exam Quality Assessment: Supplemental Oxygen General: Alert, Oriented, Cooperative, No Acute Distress, Other (Very hard of hearing) HEENT: Pupils Equal, Pupils Reactive, EOMI, Mucous Membr. Moist/[place] Neck: Supple, Trachea Midline, No JVD, No Thyromegaly, Other (No acessory muscle use) Lungs: Clear to Auscultation, Normal Respiratory Effort, Other (Inaudible air entry) Cardiovascular: Regular Rate, Regular Rhythm GI/Abdominal Exam: Normal Bowel Sounds, Soft, Non-Tender, No Organomegaly, No Distention, No Abnormal Bruit, No Mass (Male) Exam: Deferred Back Exam: Normal Inspection, Decreased Range of Motion Extremities: Normal Inspection, Normal Range of Motion, Non-Tender, No Pedal Edema, Normal Capillary Refill Skin: Warm, Dry, Intact Neurological: No New Focal Deficit Psy/Mental Status: Alert, Normal Affect, Normal Mood - Problem List Review Problem List Initiated/Reviewed/Updated: Yes - My Orders Last 24 Hours: My Active Orders 01/24/17 23:00 methylPREDNISolone Sod Succ [Solu-MEDROL] 80 mg IVPUSH Q8H 01/25/17 07:50 Vaccines to be Administered [RC] PER UNIT ROUTINE 01/25/17 09:00 Magnesium Oxide 400 mg PO BID Metoprolol Succinate [Toprol XL] 25 mg PO DAILY Patient's Own Medication [Ptom] 0 each PO DAILY Potassium Chloride [Klor-Con M20] 20 meq PO DAILY Potassium Chloride/NaCl [Thermotabs] 1 each PO TID 01/25/17 09:37 Admission Status [Patient Status] [ADT] Routine 01/25/17 11:30 Morphine 15 mg PO Q8H 08/02/17 20:31 Temazepam [Restoril] 15 mg PO BEDTIME PRN 01/26/17 05:11 BASIC METABOLIC PANEL,BMP [CHEM] AM CBC WITH AUTO DIFF [HEME] AM 01/27/17 05:11 BASIC METABOLIC PANEL,BMP [CHEM] AM CBC WITH AUTO DIFF [HEME] AM 01/28/17 05:11 BASIC METABOLIC PANEL,BMP [CHEM] AM CBC WITH AUTO DIFF [HEME] AM 01/29/17 05:11 BASIC METABOLIC PANEL,BMP [CHEM] AM CBC WITH AUTO DIFF [HEME] AM - Plan Plan:: Assessment: Acute: COPD Exacerbation, Improved - Has Advanced Emphysema on CXR - Failed Outpatient Treatment - He has been seen in ED for the past couple of months - He follows Dr. Emmanuel - IV Steroids, Scheduled and PRN Bronchodilators, IV Morphine, IV Magnesium Sulfate, IV Azithromycin, Supplemental O2 - FV Q2 awake - Decongestant/Expectorant - PRN IVP Morphine for Dyspnea - Sputum Cx: Moderate GNR -prelim report Dyspnea - 2/2 Above and Advanced - PRN IVP Morphine 1 mg - Oral Morphine 15 mg po TID Thrombocytosis, Improving - Mildly Elevated - Platelet of 382 ---> 378 - Possibly stress - Will monitor Hyponatremia - Na 124 ---> 128 - Likely from Pulmonary Insufficiency - Due to low KEYSHA level (converts AI to AII) --> low levels of Aldosterone - Continue Salt Tablet 1 1tab po TID - Monitor levels Generalized Weakness - 2/2 Above Illness - PT/OT consult - TFT and Vit D Level Chronic: Respiratory Failure, On 3L NC baseline, Currently at 2L NC HTN Anxiety Depression Plan: Patient looks better clinically and he breaths better Continue current treatment Oral Morphine 15 mg po TID for Dyspnea Routine AM Labs Continue PT/OT/RT SW/CM for d/c planning Additional orders as above Code status: DNR/DNI Recommend SNF/NURSING HOME
[2017-01-26] MEDS: methylPREDNISolone Sodium Succinate 40 MG/1 ML SDV IVPUSH SCH ×4 (00:24→22:49)
[2017-01-26] MEDS: Morphine 15 MG Tab PO SCH ×3 (04:55→18:29)
--- NOTE | 2017-01-26 09:05 | PCM.PN ---
- General Info Date of Service: 01/26/17 Admission Dx/Problem (Free Text): COPD Exacerbation Doing better; breathing easier; minimal SOB/PUENTE, no CP. Afebrile, VSS. Functional Status: Reports: Pain Controlled, Tolerating Diet, Ambulating, Urinating, Incentive Spirometry (and FV). Denies: New Symptoms - Review of Systems General: Reports: No Symptoms HEENT: Reports: No Symptoms Pulmonary: Reports: Shortness of Breath (improved), Cough (improved), Sputum ( improved) Cardiovascular: Reports: No Symptoms, Dyspnea on Exertion (improved). Denies: Chest Pain, Palpitations Gastrointestinal: Reports: No Symptoms Genitourinary: Reports: No Symptoms Musculoskeletal: Reports: No Symptoms Skin: Reports: No Symptoms Neurological: Reports: No Symptoms Psychiatric: Reports: No Symptoms - Patient Data Vitals - Most Recent: Last Vital Signs Temp 98.1 F 01/26/17 07:34 Pulse 75 01/26/17 07:34 Resp 14 01/26/17 07:34 BP 113/48 L 01/26/17 07:34 Pulse Ox 96 01/26/17 07:34 Weight - Most Recent: 153 lb 6.4 oz I&O - Last 24 Hours: Intake & Output 01/25/17 01/26/17 01/26/17 22:59 06:59 14:59 Intake Total 2080 550 Output Total 2250 600 Balance -170 -50 Lab Results Last 24 Hours: Laboratory Results - last 24 hr 01/26/17 01/26/17 Range/Units 06:00 06:00 WBC 8.78 (4.23-9.07) K/mm3 RBC 4.05 L (4.63-6.08) M/mm3 Hgb 11.5 L (13.7-17.5) gm/L Hct 34.7 L (40.1-51.0) % MCV 85.7 (79.0-92.2) fl MCH 28.4 (25.7-32.2) pg MCHC 33.1 (32.2-35.5) g/dl RDW Std Deviation 45.7 H (35.1-43.9) fL Plt Count 353 H (163-337) K/mm3 MPV 8.8 L (9.4-12.3) fl Neut % (Auto) 91.4 H (34.0-67.9) % Lymph % (Auto) 3.9 L (21.8-53.1) % [place] % (Auto) 4.4 L (5.3-12.2) % Eos % (Auto) 0 L (0.8-7.0) Baso % (Auto) 0.0 L (0.1-1.2) % Neut # (Auto) 8.02 H (1.78-5.38) K/mm3 Lymph # (Auto) 0.34 L (1.32-3.57) K/mm3 [place] # (Auto) 0.39 (0.30-0.82) K/mm3 Eos # (Auto) 0.00 L (0.04-0.54) K/mm3 Baso # (Auto) 0.00 L (0.01-0.08) K/mm3 Manual Slide Review Abnormal smear Sodium 132 L (136-145) mEq/L Potassium 3.9 (3.5-5.1) mEq/L Chloride 97 L (98-107) mEq/L Carbon Dioxide 29 (21-32) mEq/L Anion Gap 9.9 (5-15) BUN 21 H (7-18) mg/dL Creatinine 1.1 (0.7-1.3) mg/dL Est Cr Clr Drug Dosing 52.71 mL/min Estimated GFR (MDRD) > 60 (>60) mL/min BUN/Creatinine Ratio 19.1 H (14-18) Glucose 130 H (83-115) mg/dL Calcium 8.7 (8.5-10.1) mg/dL Free T4 0.83 (0.76-1.46) ng/dL TSH 3rd Generation 1.470 (0.358-3.74) uIU/mL Bahman Results Last 24 Hours: Microbiology 01/24/17 19:30 Gram Stain - Final Sputum - Expectorated Sputum Culture - Preliminary Med Orders - Current: Current Medications Acetaminophen (Tylenol) 650 mg PO Q4H PRN PRN Reason: Pain (Mild 1-3)/fever Hydrocodone Bitart/Acetaminophen ([place] 325-5 Mg) 1 tab PO Q4H PRN PRN Reason: Pain (moderate 4-6) Albuterol/Ipratropium (Duoneb 3.0-0.5 Mg/3 Ml) 3 ml NEB Q4H PRN PRN Reason: Shortness Of Breath/wheezing Last Admin: 01/25/17 15:47 Dose: 3 ml Bisacodyl (Dulcolax) 5 mg PO DAILY PRN PRN Reason: Constipation Docusate Sodium (Colace) 100 mg PO BID PRN PRN Reason: Constipation Guaifenesin (Mucinex) 600 mg PO BID [facility] Last Admin: 01/25/17 21:05 Dose: 600 mg Hydralazine HCl (Apresoline) 10 mg IVPUSH Q4H PRN PRN Reason: Hypertension Azithromycin 500 mg/ Sodium (Chloride) 250 mls @ 250 mls/hr IV Q24H [facility] Last Admin: 01/25/17 18:51 Dose: 250 mls/hr Promethazine HCl 12.5 mg/ (Sodium Chloride) 50.5 mls @ 100 mls/hr IV Q6H PRN PRN Reason: Nausea/Vomiting Latanoprost (Xalatan 0.005% Ophth Soln) 0 ml EYEBOTH BEDTIME [facility] Last Admin: 01/25/17 21:05 Dose: 1 drop Lorazepam (Ativan) 0.5 mg IVPUSH Q4H PRN; Protocol PRN Reason: Anxiety Last Admin: 01/24/17 20:14 Dose: 0.5 mg Magnesium Oxide (Magnesium Oxide) 400 mg PO BID [facility] Last Admin: 01/25/17 21:05 Dose: 400 mg Methylprednisolone Sodium Succinate (Solu-Medrol) 80 mg IVPUSH Q8H [facility] Last Admin: 01/26/17 06:07 Dose: 80 mg Metoprolol Succinate (Toprol Xl) 25 mg PO DAILY [facility] Last Admin: 01/25/17 08:34 Dose: 25 mg Metoprolol Tartrate (Lopressor) 5 mg IVPUSH Q4H PRN PRN Reason: Tachycardia Mometasone Furoate/Formoterol Fumar (Dulera 200-5 Mcg) 0 puff IH BID [facility] Last Admin: 01/25/17 21:24 Dose: 2 inhalation Morphine Sulfate (Morphine) 1 mg IVPUSH Q4H PRN PRN Reason: Other Stop: 01/29/17 18:31 Last Admin: 01/25/17 06:45 Dose: 1 mg Morphine Sulfate (Morphine) 15 mg PO Q8H [facility] Last Admin: 01/26/17 04:55 Dose: Not Given Ondansetron HCl (Zofran) 4 mg IV Q6H PRN PRN Reason: Nausea/Vomiting Oral Electrolytes (Thermotabs) 1 each PO TID [facility] Last Admin: 01/25/17 21:09 Dose: 1 each Lutein 1 Cap 0 each PO BID [facility] Last Admin: 01/25/17 21:09 Dose: Not Given Chlorthalidone 12. (5mg) 0 each PO DAILY [facility] Last Admin: 01/25/17 09:33 Dose: Not Given Polyethylene Glycol (Miralax) 17 gm PO DAILY PRN PRN Reason: Constipation Potassium Chloride (Klor-Con M20) 20 meq PO DAILY [facility] Last Admin: 01/25/17 08:35 Dose: 20 meq Senna/Docusate Sodium (Senna Plus) 1 tab PO BID PRN PRN Reason: Constipation Sodium Chloride (Saline Flush) 10 ml FLUSH ASDIRECTED PRN PRN Reason: Keep Vein Open Last Admin: 01/24/17 15:50 Dose: 10 ml Temazepam (Restoril) 15 mg PO BEDTIME PRN PRN Reason: Sleep Last Admin: 01/25/17 21:08 Dose: 15 mg Discontinued Medications Albuterol/Ipratropium (Duoneb 3.0-0.5 Mg/3 Ml) 3 ml NEB ONETIME ONE Stop: 01/24/17 15:08 Last Admin: 01/24/17 16:29 Dose: 3 ml Diphtheria/Tetanus/Acell Pertussis (Adacel) 0.5 ml IM .ONCE ONE Stop: 01/25/17 08:01 Azithromycin 500 mg/ Sodium (Chloride) 250 mls @ 250 mls/hr IV ONETIME ONE Stop: 01/24/17 19:34 Last Admin: 01/24/17 19:45 Dose: Not Given Magnesium Sulfate 2 gm/ Premix 50 mls @ 25 mls/hr IV ONETIME ONE Stop: 01/24/17 20:35 Last Admin: 01/24/17 19:43 Dose: 25 mls/hr Methylprednisolone Sodium Succinate (Solu-Medrol) 125 mg IVPUSH ONETIME ONE Stop: 01/24/17 15:08 Last Admin: 01/24/17 16:47 Dose: 125 mg Morphine Sulfate (Morphine) 0.5 mg IVPUSH Q4H PRN PRN Reason: Other Stop: 01/29/17 18:31 Last Admin: 01/24/17 19:37 Dose: 0.5 mg Oral Electrolytes (Thermotabs) 1 each PO TID PRN PRN Reason: Other Umeclidinium [place] (62.5mcg Inh) 0 each INH DAILY [facility] Last Admin: 01/25/17 09:34 Dose: Not Given Temazepam (Restoril) 7.5 mg PO BEDTIME PRN PRN Reason: Sleep - Exam Quality Assessment: Supplemental Oxygen, DVT Prophylaxis General: Alert, Cooperative, No Acute Distress HEENT: Pupils Equal, EOMI, Mucous Membr. Moist/[place] Neck: Supple Lungs: Normal Respiratory Effort, Decreased Breath Sounds (throughout) Cardiovascular: Regular Rate, Regular Rhythm GI/Abdominal Exam: Normal Bowel Sounds, Soft, Non-Tender (Male) Exam: Deferred Extremities: Normal Inspection Peripheral Pulses: 1+: Dorsalis Pedis (L), Dorsalis Pedis (R) Neurological: No New Focal Deficit Psy/Mental Status: Alert, Normal Affect, Normal Mood - Problem List & Annotations (1) COPD exacerbation SNOMED Code(s): 206417727, 026213819 Code(s): J44.1 - CHRONIC OBSTRUCTIVE PULMONARY DISEASE W (ACUTE) EXACERBATION Status: Acute Priority: High Current Visit: Yes (2) Hyponatremia SNOMED Code(s): 30459552 Code(s): E87.1 - HYPO-OSMOLALITY AND HYPONATREMIA Status: Acute Priority : High Current Visit: Yes - Problem List Review Problem List Initiated/Reviewed/Updated: Yes - My Orders Last 24 Hours: My Active Orders 01/26/17 08:59 Chest 2V [CR] Routine 01/26/17 09:01 MAGNESIUM [CHEM] Routine - Plan Plan:: Assessment: Acute: COPD Exacerbation, Improved - Has Advanced Emphysema on CXR--repeat CXR today--pending - Failed Outpatient Treatment, He has been seen in ED for the past couple of months - He follows Dr. Emmanuel, Pulmology - IV Steroids, Scheduled and PRN Bronchodilators, IV Morphine, IV Magnesium Sulfate, IV Azithromycin, Supplemental O2 - FV/IS/RT Q2 awake - Decongestant/Expectorant - PRN IVP Morphine for Dyspnea - Sputum Cx: Moderate GNR -prelim report Dyspnea - 2/2 Above and Advanced - PRN IVP Morphine 1 mg - Oral Morphine 15 mg po TID Thrombocytosis, Improving - Mildly Elevated - Platelet of 382 ---> 378 - Possibly stress - Will monitor Hyponatremia - Na 124 ---> 128-->132 - Likely from Pulmonary Insufficiency - Due to low KEYSHA level (converts AI to AII) --> low levels of Aldosterone - Continue Salt Tablet 1 1tab po TID - Monitor levels Generalized Weakness - 2/2 Above Illness - PT/OT consult - TFT and Vit D Level Chronic: Respiratory Failure, On 3L NC baseline, Currently at 2L NC HTN--stable Anxiety--stable Depression--stable Plan: Patient looks better clinically and he breaths better Continue current treatment Oral Morphine 15 mg po TID for Dyspnea Routine AM Labs; improved Continue PT/OT/RT SW/CM for d/c planning Recommend SNF/CORRECTION--pending placement likely DC in next 24-48 hours Patient is DNR/DNI
[2017-01-26] MEDS: Potassium Chloride/Sodium Chloride Tab PO SCH ×3 (09:22→20:48)
[2017-01-26] MEDS: guaiFENesin 600 MG Tab.ER PO SCH ×2 (09:23→20:48)
[2017-01-26] MEDS: Potassium Chloride 20 MEQ Tab.ER PO SCH (09:23)
[2017-01-26] MEDS: Magnesium Oxide 400 MG Tab PO SCH ×2 (09:23→20:48)
[2017-01-26] MEDS: LUTEIN PO SCH ×2 (09:25→20:49)
[2017-01-26] MEDS: CHLORTHALIDONE 12.5 MG PO SCH (09:25)
[2017-01-26] MEDS: Metoprolol Succinate 25 MG Tab.ER PO SCH (09:25)
--- NOTE | 2017-01-26 09:37 | CR ---
Chest: Two views of the chest were obtained. Comparison: Previous chest x-ray of 01/24/17. Lungs are hyperinflated compatible with emphysematous change. Minimal atelectasis within the left lung base is noted. Lungs otherwise are clear. Nothing acute is appreciated. Bony structures are grossly intact. Impression: 1. Emphysematous change. Minimal atelectasis within the left base. 2. Nothing acute is appreciated. Diagnostic code #2
[2017-01-26] MEDS: Formoterol/Mometasone 200-5 MCG 8.8 GM Inhaler IH SCH ×2 (09:53→21:12)
[2017-01-26] MEDS: Albuterol/Ipratropium 3.0-0.5 MG/3 ML Neb Soln NEB PRN ×2 (14:53→21:12)
[2017-01-26] MEDS: LORazepam 2 MG/ML MDV IVPUSH PRN (15:17)
[2017-01-26] MEDS: Azithromycin 500 MG in Sodium Chloride 0.9% 250 ML IV SCH (18:30)
[2017-01-26] MEDS: Temazepam 15 MG Cap PO PRN (20:48)
[2017-01-26] MEDS: Latanoprost 0.005% Ophth Soln 2.5 ML Bottle EYEBOTH SCH (20:49)
[2017-01-26] MEDS ORDERED: Levalbuterol HCl 1.25 MG/3 ML Neb ONE (20:55)
[2017-01-27] MEDS: Morphine 15 MG Tab PO SCH ×2 (02:44→11:31)
[2017-01-27] MEDS: methylPREDNISolone Sodium Succinate 40 MG/1 ML SDV IVPUSH SCH (06:27)
--- NOTE | 2017-01-27 07:11 | PCM.DCSUM1 ---
Addendum entered and electronically signed by Majo Valenzuela PA-C 09:31: Discharge Summary - Hospital Course Free Text/Narrative:: Face to face encounter with patient and family on day of discharge reveals patient is home bound and will benefit from Home Health Care services of PT/OT and nursing care due to chronic COPD, oxygen dependence, electrolyte abnormalities, weakness and gait instability with recurrent falls for strength/ balance training. Nursing for evaluation and education with disease process, medications and VS monitoring. [employer] services for assist with bathing and ADL's. He is to follow up with his PCP Dr. Campo within one week of discharge who will then assume [facility] services. - Discharge Data Discharge Date: 01/27/17 Discharge Disposition: Home, Self-Care 01 Condition: Good - Discharge Diagnosis/Problem(s) (1) COPD exacerbation SNOMED Code(s): 653869754, 422966003 ICD Code: J44.1 - CHRONIC OBSTRUCTIVE PULMONARY DISEASE W (ACUTE) EXACERBATION Status: Acute Priority: High Current Visit: Yes (2) Hyponatremia SNOMED Code(s): 98524547 ICD Code: E87.1 - HYPO-OSMOLALITY AND HYPONATREMIA Status: Acute Priority : High Current Visit: Yes (3) Recurrent falls SNOMED Code(s): 382185618 ICD Code: R29.6 - REPEATED FALLS Status: Acute Priority: High Current Visit: Yes (4) Unsteady gait SNOMED Code(s): 86935883, 094553864 ICD Code: R26.81 - UNSTEADINESS ON FEET Status: Chronic Priority: High Current Visit: Yes (5) Hypokalemia SNOMED Code(s): 10543230 ICD Code: E87.6 - HYPOKALEMIA Status: Resolved Priority: High Current Visit: Yes (6) Hypomagnesemia SNOMED Code(s): 625457878 ICD Code: E83.42 - HYPOMAGNESEMIA Status: Resolved Priority: High Current Visit: Yes - Patient Summary/Data Operative Procedure(s) Performed: None Consults: Consultations 01/24/17 18:32 Consult to Case Management [CONS] Routine Consult to [employer] [CONS] Routine Consult to Spiritual Care [CONS] Routine OT Evaluation and Treatment [CONS] Routine PT Evaluation and Treatment [CONS] Routine Respiratory Care Assess and Treatment [CONS] Routine - Patient Instructions Diet: Usual Diet as Tolerated Activity: As Tolerated (with walker for assist at all times; fall precautions; PT/OT to cont to eval and tx) Driving: Do Not Drive Showering/Bathing: May Shower Notify Provider of: Fever, Increased Pain, Nausea and/or Vomiting (worsening of SOB, cough or chest pain) - Discharge Plan Prescriptions/Med Rec: Albuterol/Ipratropium [DuoNeb 3.0-0.5 MG/3 ML] 3 ml NEB Q4H PRN #1 box PRN Reason: SOB/wheezing/cough Docusate Sodium [Colace] 100 mg PO BID #60 cap Magnesium Oxide 400 mg PO BID #60 tablet Potassium Chloride [Klor-Con M20] 20 meq PO DAILY #30 tab.er Prednisone [IJD: Prednisone] 10 mg PO DAILY #30 tab Sertraline [Zoloft] 25 mg PO DAILY #30 tablet guaiFENesin [Mucinex] 600 mg PO BID #60 tab.er Home Medications: Home Meds Albuterol [Ventolin HFA] 2 - 4 inh INH Q4H PRN 11/25/16 [History] Budesonide/Formoterol [Symbicort 160-4.5 MCG] 2 inh INH BID 11/25/16 [History] Chlorthalidone 12.5 mg PO DAILY 11/25/16 [History] Metoprolol Succinate 25 mg PO DAILY 11/25/16 [History] Latanoprost [Xalatan 0.005% Ophth Soln] 2.5 ml EYEBOTH BEDTIME 01/24/17 [History ] Lutein 1 cap PO BID 01/24/17 [History] Acetaminophen [Tylenol] 650 mg PO Q4H PRN #0 tablet 01/27/17 [Rx] Albuterol/Ipratropium [DuoNeb 3.0-0.5 MG/3 ML] 3 ml NEB Q4H PRN #1 box 01/27/17 [Rx] Docusate Sodium [Colace] 100 mg PO BID #60 cap 01/27/17 [Rx] Magnesium Oxide 400 mg PO BID #60 tablet 01/27/17 [Rx] Polyethylene Glycol 3350 [MiraLAX] 17 gm PO DAILY PRN #0 packet 01/27/17 [Rx] Potassium Chloride [Klor-Con M20] 20 meq PO DAILY #30 tab.er 01/27/17 [Rx] Prednisone [IJD: Prednisone] 10 mg PO DAILY #0 01/27/17 [Rx] Prednisone [IJD: Prednisone] 10 mg PO DAILY #30 tab 01/27/17 [Rx] Sertraline [Zoloft] 25 mg PO DAILY #30 tablet 01/27/17 [Rx] guaiFENesin [Mucinex] 600 mg PO BID #60 tab.er 01/27/17 [Rx] Patient Handouts: Chronic Obstructive Pulmonary Disease Exacerbation, Easy-to- Read, Fall Prevention in the Home, [id number], Hyponatremia, [id number], Hypomagnesemia, Hypokalemia Forms: ED Department Discharge Referrals: Ritchie Campo Jr, MD [Primary Care Provider] - 02/02/17 9:00 am - Patient Data Vitals - Most Recent: Last Vital Signs Temp 98.1 F 01/27/17 07:46 Pulse 96 01/27/17 09:08 Resp 16 01/27/17 07:46 BP 110/55 L 01/27/17 09:08 Pulse Ox 99 01/27/17 07:46 Weight - Most Recent: 155 lb 3.2 oz I&O - Last 24 hours: Intake & Output 01/26/17 01/27/17 01/27/17 22:59 06:59 14:59 Intake Total 1340 800 Output Total 1200 1000 Balance 140 -200 Lab Results - Last 24 hrs: Laboratory Results - last 24 hr 01/27/17 01/27/17 01/27/17 Range/Units 05:35 05:35 05:35 WBC 10.78 H (4.23-9.07) K/mm3 RBC 3.95 L (4.63-6.08) M/mm3 Hgb 11.2 L (13.7-17.5) gm/L Hct 34.4 L (40.1-51.0) % MCV 87.1 (79.0-92.2) fl MCH 28.4 (25.7-32.2) pg MCHC 32.6 (32.2-35.5) g/dl RDW Std Deviation 47.2 H (35.1-43.9) fL Plt Count 325 (163-337) K/mm3 MPV 8.7 L (9.4-12.3) fl Neut % (Auto) 92.7 H (34.0-67.9) % Lymph % (Auto) 3.2 L (21.8-53.1) % Wise % (Auto) 3.8 L (5.3-12.2) % Eos % (Auto) 0 L (0.8-7.0) Baso % (Auto) 0.0 L (0.1-1.2) % Neut # (Auto) 10.00 H (1.78-5.38) K/mm3 Lymph # (Auto) 0.34 L (1.32-3.57) K/mm3 Wise # (Auto) 0.41 (0.30-0.82) K/mm3 Eos # (Auto) 0.00 L (0.04-0.54) K/mm3 Baso # (Auto) 0.00 L (0.01-0.08) K/mm3 Manual Slide Review Abnormal smear Sodium 132 L (136-145) mEq/L Potassium 4.2 (3.5-5.1) mEq/L Chloride 98 (98-107) mEq/L Carbon Dioxide 29 (21-32) mEq/L Anion Gap 9.2 (5-15) BUN 27 H (7-18) mg/dL Creatinine 1.1 (0.7-1.3) mg/dL Est Cr Clr Drug Dosing 53.33 mL/min Estimated GFR (MDRD) > 60 (>60) mL/min BUN/Creatinine Ratio 24.5 H (14-18) Glucose 133 H (83-115) mg/dL Calcium 8.6 (8.5-10.1) mg/dL Magnesium 2.1 (1.8-2.4) mg/dl SAV Results - Last 24 hrs: Microbiology 01/24/17 19:30 Gram Stain - Final Sputum - Expectorated Sputum Culture - Final Normal Stephenie Med Orders - Current: Current Medications Acetaminophen (Tylenol) 650 mg PO Q4H PRN PRN Reason: Pain (Mild 1-3)/fever Hydrocodone Bitart/Acetaminophen ([place] 325-5 Mg) 1 tab PO Q4H PRN PRN Reason: Pain (moderate 4-6) Albuterol/Ipratropium (Duoneb 3.0-0.5 Mg/3 Ml) 3 ml NEB Q4H PRN PRN Reason: Shortness Of Breath/wheezing Last Admin: 01/26/17 21:12 Dose: 3 ml Bisacodyl (Dulcolax) 5 mg PO DAILY PRN PRN Reason: Constipation Last Admin: 01/26/17 13:01 Dose: 5 mg Docusate Sodium (Colace) 100 mg PO BID PRN PRN Reason: Constipation Guaifenesin (Mucinex) 600 mg PO BID [facility] Last Admin: 01/27/17 09:10 Dose: 600 mg Hydralazine HCl (Apresoline) 10 mg IVPUSH Q4H PRN PRN Reason: Hypertension Azithromycin 500 mg/ Sodium (Chloride) 250 mls @ 250 mls/hr IV Q24H [facility] Last Admin: 01/26/17 18:30 Dose: 250 mls/hr Promethazine HCl 12.5 mg/ (Sodium Chloride) 50.5 mls @ 100 mls/hr IV Q6H PRN PRN Reason: Nausea/Vomiting Latanoprost (Xalatan 0.005% Oph Soln) 0 ml EYEBOTH BEDTIME [facility] Last Admin: 01/26/17 20:49 Dose: 1 drop Lorazepam (Ativan) 0.5 mg IVPUSH Q4H PRN; Protocol PRN Reason: Anxiety Last Admin: 01/26/17 15:17 Dose: 0.5 mg Magnesium Oxide (Magnesium Oxide) 400 mg PO BID [facility] Last Admin: 01/27/17 09:10 Dose: 400 mg Methylprednisolone Sodium Succinate (Solu-Medrol) 80 mg IVPUSH Q8H [facility] Last Admin: 01/27/17 06:27 Dose: 80 mg Metoprolol Succinate (Toprol Xl) 25 mg PO DAILY [facility] Last Admin: 01/27/17 09:08 Dose: 25 mg Metoprolol Tartrate (Lopressor) 5 mg IVPUSH Q4H PRN PRN Reason: Tachycardia Mometasone Furoate/Formoterol Fumar (Dulera 200-5 Mcg) 0 puff IH BID [facility] Last Admin: 01/26/17 21:12 Dose: 2 inhalation Morphine Sulfate (Morphine) 1 mg IVPUSH Q4H PRN PRN Reason: Other Stop: 01/29/17 18:31 Last Admin: 01/25/17 06:45 Dose: 1 mg Morphine Sulfate (Morphine) 15 mg PO Q8H [facility] Last Admin: 01/27/17 02:44 Dose: 15 mg Ondansetron HCl (Zofran) 4 mg IV Q6H PRN PRN Reason: Nausea/Vomiting Oral Electrolytes (Thermotabs) 1 each PO TID [facility] Last Admin: 01/27/17 09:10 Dose: 1 each Lutein 1 Cap 0 each PO BID [facility] Last Admin: 01/27/17 09:14 Dose: Not Given Chlorthalidone 12. (5mg) 0 each PO DAILY [facility] Last Admin: 01/27/17 09:14 Dose: Not Given Polyethylene Glycol (Miralax) 17 gm PO DAILY PRN PRN Reason: Constipation Potassium Chloride (Klor-Con M20) 20 meq PO DAILY [facility] Last Admin: 01/27/17 09:08 Dose: 20 meq Senna/Docusate Sodium (Senna Plus) 1 tab PO BID PRN PRN Reason: Constipation Sertraline HCl (Zoloft) 25 mg PO DAILY [facility] Last Admin: 01/27/17 09:10 Dose: 25 mg Sodium Chloride (Saline Flush) 10 ml FLUSH ASDIRECTED PRN PRN Reason: Keep Vein Open Last Admin: 01/24/17 15:50 Dose: 10 ml Temazepam (Restoril) 15 mg PO BEDTIME PRN PRN Reason: Sleep Last Admin: 01/26/17 20:48 Dose: 15 mg Discontinued Medications Albuterol/Ipratropium (Duoneb 3.0-0.5 Mg/3 Ml) 3 ml NEB ONETIME ONE Stop: 01/24/17 15:08 Last Admin: 01/24/17 16:29 Dose: 3 ml Diphtheria/Tetanus/Acell Pertussis (Adacel) 0.5 ml IM .ONCE ONE Stop: 01/25/17 08:01 Azithromycin 500 mg/ Sodium (Chloride) 250 mls @ 250 mls/hr IV ONETIME ONE Stop: 01/24/17 19:34 Last Admin: 01/24/17 19:45 Dose: Not Given Magnesium Sulfate 2 gm/ Premix 50 mls @ 25 mls/hr IV ONETIME ONE Stop: 01/24/17 20:35 Last Admin: 01/24/17 19:43 Dose: 25 mls/hr Levalbuterol HCl (Xopenex) Confirm Administered Dose 1.25 mg .ROUTE .STK-MED ONE Stop: 01/26/17 20:56 Methylprednisolone Sodium Succinate (Solu-Medrol) 125 mg IVPUSH ONETIME ONE Stop: 01/24/17 15:08 Last Admin: 01/24/17 16:47 Dose: 125 mg Morphine Sulfate (Morphine) 0.5 mg IVPUSH Q4H PRN PRN Reason: Other Stop: 01/29/17 18:31 Last Admin: 01/24/17 19:37 Dose: 0.5 mg Oral Electrolytes (Thermotabs) 1 each PO TID PRN PRN Reason: Other Umeclidinium Parnell (62.5mcg Inh) 0 each INH DAILY ADRIANO Last Admin: 01/25/17 09:34 Dose: Not Given Temazepam (Restoril) 7.5 mg PO BEDTIME PRN PRN Reason: Sleep Original Note: Discharge Summary - Hospital Course Free Text/Narrative:: his is an 81 yo elderly white male with past medical hx/o COPD, Chronic Respiratory Failure on 3L [place], Anxiety and Depression who presents to ED with complaints of worsening shortness of breath that has been going on for a few months now. He has been seen here in ED for the past couple of months for the same chief of complaint. Patient has been treated with Prednisone but w/o much success. Patient carries a hx/o Advanced Emphysema. He used to smoke 2 ppd and quit 6-7 years ago. He is currently on 3L [place] supplemental O2. He follows Dr. Emmanuel in [place] for his pulmonary care. His last visit with him was about a year ago. Patient reports associated non-productive cough. He denies any fever or chills. He admits to being compliant with his maintenance medications. Patient lives alone and states he is is very independent. However, during course of hospital stay this was found to be untrue. He had, [employer] been living with son x 1 month with recurrent falls and unsteady gait. His initial work up in ED shows a CBC remarkable for WBC of 9.11, RBC of 4.24, hemoglobin of 11.9, hematocrit of 35.7, platelet count of 382, neutrophils of 74 % lymphocytes of 13.4% and monocyte count of 0.95. His chemistry is remarkable for sodium of 124 and chloride of 88. Normal LFT's. Negative troponin. EKG with sinus arrhythmia, rate of 78bpm. His chest x-ray shows hyperinflated lungs. Patient is being admitted for acute exacerbation of COPD. He is DNR/DNI. Patient was admitted to [facility] with telemetry; telemetry was unremarkable during his stay. He was treated with IV zithromax, IV solumedrol with tapering doses, aggressive pulmonary toilet--nebs, IS/FV. He had electrolyte abnormalities of hyponatremia, hypokalemia and hypomagnesemia, all treated and resolved during hospital stay. He talita be discharged on potassium and magnesium supplements. He has been suffering with anxiety PT/OT worked with him, found him to have very unsteady gait and weakness, improved with use of walker with ambulation and recommend [facility]DC/SNF for rehab stay. Clinically respiratory status improved quickly , oxygen was weaned down to 2L/NC, improved from home baseline usage. Coughing and SOB improved to resolved to baseline or better. Appetite good to improved. Energy improved. Repeat CXR continued to be unremarkable for PNA, with severe emphysematous changes. SW worked diligently with patient and family for discharge plan. He was failing at home prior, lived with son for a month also failing with multiple falls daily at home, continuing to get weaker. Decision is made for [facility] placement at [place] on Monday01/30/17. Patient will be discharged home to [facility] today for the weekend and report for admission to [facility] Monday morning. He will have follow up with PCP Dr. Campo scheduled for 02/02/17 with BMP and magnesium levels at that time. - Discharge Data Discharge Date: 01/27/17 (admit date 01/24/17) Discharge Disposition: Home, Self-Care 01 Condition: Good - Discharge Diagnosis/Problem(s) (1) COPD exacerbation SNOMED Code(s): 862756191, 788178757 ICD Code: J44.1 - CHRONIC OBSTRUCTIVE PULMONARY DISEASE W (ACUTE) EXACERBATION Status: Acute Priority: High Current Visit: Yes (2) Hyponatremia SNOMED Code(s): 94379602 ICD Code: E87.1 - HYPO-OSMOLALITY AND HYPONATREMIA Status: Acute Priority : High Current Visit: Yes (3) Recurrent falls SNOMED Code(s): 011690731 ICD Code: R29.6 - REPEATED FALLS Status: Acute Priority: High Current Visit: Yes (4) Unsteady gait SNOMED Code(s): 38050565, 393700120 ICD Code: R26.81 - UNSTEADINESS ON FEET Status: Chronic Priority: High Current Visit: Yes (5) Hypokalemia SNOMED Code(s): 45514187 ICD Code: E87.6 - HYPOKALEMIA Status: Resolved Priority: High Current Visit: Yes (6) Hypomagnesemia SNOMED Code(s): 386066687 ICD Code: E83.42 - HYPOMAGNESEMIA Status: Resolved Priority: High Current Visit: Yes - Patient Summary/Data Operative Procedure(s) Performed: None Complications: None Consults: Consultations 01/24/17 18:32 Consult to Case Management [CONS] Routine Consult to [employer] [CONS] Routine Consult to Spiritual Care [CONS] Routine OT Evaluation and Treatment [CONS] Routine PT Evaluation and Treatment [CONS] Routine Respiratory Care Assess and Treatment [CONS] Routine Labs Pending at D/C: None Recommended Follow-up Testing/Procedures: Patient DC instructions: Follow up with PCP, Dr. Campo as scheduled; recheck for new anxiety medication started -Recheck of labs at that time 02/02/17--BMP and mag- for sodium level recheck for hyponatremia (low sodium levels), hypokalemia (low potassium) and hypomagnesemia (low magnesium level) Continue with PT/OT at [facility] for strength and balance Continue with supplemental oxygen at 2-3L/NC Planned Operative Procedure(s) after DC: None Hospital Course: As above - Patient Instructions Diet: Usual Diet as Tolerated Activity: As Tolerated (with walker for assist at all times; fall precautions; PT/OT to cont to eval and tx) Driving: Do Not Drive Showering/Bathing: May Shower Notify Provider of: Fever, Increased Pain, Nausea and/or Vomiting (worsening of SOB, cough or chest pain) - Discharge Plan Prescriptions/Med Rec: Albuterol/Ipratropium [DuoNeb 3.0-0.5 MG/3 ML] 3 ml NEB Q4H PRN #1 box PRN Reason: SOB/wheezing/cough Docusate Sodium [Colace] 100 mg PO BID #60 cap Magnesium Oxide 400 mg PO BID #60 tablet Potassium Chloride [Klor-Con M20] 20 meq PO DAILY #30 tab.er Prednisone [IJD: Prednisone] 10 mg PO DAILY #30 tab Sertraline [Zoloft] 25 mg PO DAILY #30 tablet guaiFENesin [Mucinex] 600 mg PO BID #60 tab.er Home Medications: Home Meds Albuterol [Ventolin HFA] 2 - 4 inh INH Q4H PRN 11/25/16 [History] Budesonide/Formoterol [Symbicort 160-4.5 MCG] 2 inh INH BID 11/25/16 [History] Chlorthalidone 12.5 mg PO DAILY 11/25/16 [History] Metoprolol Succinate 25 mg PO DAILY 11/25/16 [History] Latanoprost [Xalatan 0.005% Ophth Soln] 2.5 ml EYEBOTH BEDTIME 01/24/17 [History ] Lutein 1 cap PO BID 01/24/17 [History] Acetaminophen [Tylenol] 650 mg PO Q4H PRN #0 tablet 01/27/17 [Rx] Albuterol/Ipratropium [DuoNeb 3.0-0.5 MG/3 ML] 3 ml NEB Q4H PRN #1 box 01/27/17 [Rx] Docusate Sodium [Colace] 100 mg PO BID #60 cap 01/27/17 [Rx] Magnesium Oxide 400 mg PO BID #60 tablet 01/27/17 [Rx] Polyethylene Glycol 3350 [MiraLAX] 17 gm PO DAILY PRN #0 packet 01/27/17 [Rx] Potassium Chloride [Klor-Con M20] 20 meq PO DAILY #30 tab.er 01/27/17 [Rx] Prednisone [IJD: Prednisone] 10 mg PO DAILY #0 01/27/17 [Rx] Prednisone [IJD: Prednisone] 10 mg PO DAILY #30 tab 01/27/17 [Rx] Sertraline [Zoloft] 25 mg PO DAILY #30 tablet 01/27/17 [Rx] guaiFENesin [Mucinex] 600 mg PO BID #60 tab.er 01/27/17 [Rx] Patient Handouts: Chronic Obstructive Pulmonary Disease Exacerbation, Easy-to- Read, Hyponatremia, [id number], Hypokalemia, Hypomagnesemia, Fall Prevention in the Home, [id number] Forms: ED Department Discharge Referrals: Ritchie Campo Jr, MD [Primary Care Provider] - 02/02/17 9:00 am - Discharge Summary/Plan Comment DC Time >30 min.: Yes (40 min) - General Info Date of Service: 01/27/17 Admission Dx/Problem (Free Text: COPD Exacerbation Doing better; breathing easier; minimal SOB/PUENTE, no CP. Afebrile, VSS. Plans for DC to [facility] home over the weekend and admission to [facility] on Monday Functional Status: Reports: Pain Controlled, Tolerating Diet, Ambulating, Urinating, Incentive Spirometry. Denies: New Symptoms - Review of Systems General: Reports: No Symptoms, Weakness (much improved; continues to have balance issues per PT- needs to/recommend ambulate with walker at all times for safety) HEENT: Reports: No Symptoms Pulmonary: Reports: Cough (minimal). Denies: Shortness of Breath (baseline or better---much improved-----denies that he feels SOB today- O2 at 2L/NC prior baseline at home [employer] was 3L/NC), Wheezing (denies) Cardiovascular: Reports: No Symptoms. Denies: Chest Pain, Palpitations, Dyspnea on Exertion, Edema, Lightheadedness Gastrointestinal: Reports: No Symptoms Genitourinary: Reports: No Symptoms Musculoskeletal: Reports: No Symptoms Skin: Reports: No Symptoms Neurological: Reports: No Symptoms Psychiatric: Reports: No Symptoms - Patient Data Vitals - Most Recent: Last Vital Signs Temp 97.7 F 01/27/17 02:42 Pulse 81 01/27/17 02:42 Resp 16 01/27/17 02:42 BP 104/47 L 01/27/17 02:42 Pulse Ox 97 01/27/17 02:42 Weight - Most Recent: 155 lb 3.2 oz I&O - Last 24 hours: Intake & Output 01/26/17 01/27/17 01/27/17 22:59 06:59 14:59 Intake Total 1340 800 Output Total 1200 1000 Balance 140 -200 Lab Results - Last 24 hrs: Laboratory Results - last 24 hr 01/26/17 01/26/17 01/26/17 Range/Units 06:00 06:00 06:00 WBC 8.78 (4.23-9.07) K/mm3 RBC 4.05 L (4.63-6.08) M/mm3 Hgb 11.5 L (13.7-17.5) gm/L Hct 34.7 L (40.1-51.0) % MCV 85.7 (79.0-92.2) fl MCH 28.4 (25.7-32.2) pg MCHC 33.1 (32.2-35.5) g/dl RDW Std Deviation 45.7 H (35.1-43.9) fL Plt Count 353 H (163-337) K/mm3 MPV 8.8 L (9.4-12.3) fl Neut % (Auto) 91.4 H (34.0-67.9) % Lymph % (Auto) 3.9 L (21.8-53.1) % Wise % (Auto) 4.4 L (5.3-12.2) % Eos % (Auto) 0 L (0.8-7.0) Baso % (Auto) 0.0 L (0.1-1.2) % Neut # (Auto) 8.02 H (1.78-5.38) K/mm3 Lymph # (Auto) 0.34 L (1.32-3.57) K/mm3 Wise # (Auto) 0.39 (0.30-0.82) K/mm3 Eos # (Auto) 0.00 L (0.04-0.54) K/mm3 Baso # (Auto) 0.00 L (0.01-0.08) K/mm3 Manual Slide Review Abnormal smear Sodium 132 L (136-145) mEq/L Potassium 3.9 (3.5-5.1) mEq/L Chloride 97 L (98-107) mEq/L Carbon Dioxide 29 (21-32) mEq/L Anion Gap 9.9 (5-15) BUN 21 H (7-18) mg/dL Creatinine 1.1 (0.7-1.3) mg/dL Est Cr Clr Drug Dosing 52.71 mL/min Estimated GFR (MDRD) > 60 (>60) mL/min BUN/Creatinine Ratio 19.1 H (14-18) Glucose 130 H (83-115) mg/dL Calcium 8.7 (8.5-10.1) mg/dL Magnesium 1.9 (1.8-2.4) mg/dl Free T4 0.83 (0.76-1.46) ng/dL TSH 3rd Generation 1.470 (0.358-3.74) uIU/mL 01/27/17 Range/Units 05:35 WBC 10.78 H (4.23-9.07) K/mm3 RBC 3.95 L (4.63-6.08) M/mm3 Hgb 11.2 L (13.7-17.5) gm/L Hct 34.4 L (40.1-51.0) % MCV 87.1 (79.0-92.2) fl MCH 28.4 (25.7-32.2) pg MCHC 32.6 (32.2-35.5) g/dl RDW Std Deviation 47.2 H (35.1-43.9) fL Plt Count 325 (163-337) K/mm3 MPV 8.7 L (9.4-12.3) fl Neut % (Auto) 92.7 H (34.0-67.9) % Lymph % (Auto) 3.2 L (21.8-53.1) % Wise % (Auto) 3.8 L (5.3-12.2) % Eos % (Auto) 0 L (0.8-7.0) Baso % (Auto) 0.0 L (0.1-1.2) % Neut # (Auto) 10.00 H (1.78-5.38) K/mm3 Lymph # (Auto) 0.34 L (1.32-3.57) K/mm3 Wise # (Auto) 0.41 (0.30-0.82) K/mm3 Eos # (Auto) 0.00 L (0.04-0.54) K/mm3 Baso # (Auto) 0.00 L (0.01-0.08) K/mm3 Manual Slide Review Abnormal smear Sodium (136-145) mEq/L Potassium (3.5-5.1) mEq/L Chloride (98-107) mEq/L Carbon Dioxide (21-32) mEq/L Anion Gap (5-15) BUN (7-18) mg/dL Creatinine (0.7-1.3) mg/dL Est Cr Clr Drug Dosing mL/min Estimated GFR (MDRD) (>60) mL/min BUN/Creatinine Ratio (14-18) Glucose (83-115) mg/dL Calcium (8.5-10.1) mg/dL Magnesium (1.8-2.4) mg/dl Free T4 (0.76-1.46) ng/dL TSH 3rd Generation (0.358-3.74) uIU/mL SAV Results - Last 24 hrs: Microbiology 01/24/17 19:30 Gram Stain - Final Sputum - Expectorated Sputum Culture - Final Normal Stephenie Med Orders - Current: Current Medications Acetaminophen (Tylenol) 650 mg PO Q4H PRN PRN Reason: Pain (Mild 1-3)/fever Hydrocodone Bitart/Acetaminophen ([place] 325-5 Mg) 1 tab PO Q4H PRN PRN Reason: Pain (moderate 4-6) Albuterol/Ipratropium (Duoneb 3.0-0.5 Mg/3 Ml) 3 ml NEB Q4H PRN PRN Reason: Shortness Of Breath/wheezing Last Admin: 01/26/17 21:12 Dose: 3 ml Bisacodyl (Dulcolax) 5 mg PO DAILY PRN PRN Reason: Constipation Last Admin: 01/26/17 13:01 Dose: 5 mg Docusate Sodium (Colace) 100 mg PO BID PRN PRN Reason: Constipation Guaifenesin (Mucinex) 600 mg PO BID [facility] Last Admin: 01/26/17 20:48 Dose: 600 mg Hydralazine HCl (Apresoline) 10 mg IVPUSH Q4H PRN PRN Reason: Hypertension Azithromycin 500 mg/ Sodium (Chloride) 250 mls @ 250 mls/hr IV Q24H [facility] Last Admin: 01/26/17 18:30 Dose: 250 mls/hr Promethazine HCl 12.5 mg/ (Sodium Chloride) 50.5 mls @ 100 mls/hr IV Q6H PRN PRN Reason: Nausea/Vomiting Latanoprost (Xalatan 0.005% Ophth Soln) 0 ml EYEBOTH BEDTIME [facility] Last Admin: 01/26/17 20:49 Dose: 1 drop Lorazepam (Ativan) 0.5 mg IVPUSH Q4H PRN; Protocol PRN Reason: Anxiety Last Admin: 01/26/17 15:17 Dose: 0.5 mg Magnesium Oxide (Magnesium Oxide) 400 mg PO BID [facility] Last Admin: 01/26/17 20:48 Dose: 400 mg Methylprednisolone Sodium Succinate (Solu-Medrol) 80 mg IVPUSH Q8H [facility] Last Admin: 01/27/17 06:27 Dose: 80 mg Metoprolol Succinate (Toprol Xl) 25 mg PO DAILY [facility] Last Admin: 01/26/17 09:25 Dose: 25 mg Metoprolol Tartrate (Lopressor) 5 mg IVPUSH Q4H PRN PRN Reason: Tachycardia Mometasone Furoate/Formoterol Fumar (Dulera 200-5 Mcg) 0 puff IH BID [facility] Last Admin: 01/26/17 21:12 Dose: 2 inhalation Morphine Sulfate (Morphine) 1 mg IVPUSH Q4H PRN PRN Reason: Other Stop: 01/29/17 18:31 Last Admin: 01/25/17 06:45 Dose: 1 mg Morphine Sulfate (Morphine) 15 mg PO Q8H [facility] Last Admin: 01/27/17 02:44 Dose: 15 mg Ondansetron HCl (Zofran) 4 mg IV Q6H PRN PRN Reason: Nausea/Vomiting Oral Electrolytes (Thermotabs) 1 each PO TID [facility] Last Admin: 01/26/17 20:48 Dose: 1 each Lutein 1 Cap 0 each PO BID [facility] Last Admin: 01/26/17 20:49 Dose: Not Given Chlorthalidone 12. (5mg) 0 each PO DAILY [facility] Last Admin: 01/26/17 09:25 Dose: Not Given Polyethylene Glycol (Miralax) 17 gm PO DAILY PRN PRN Reason: Constipation Potassium Chloride (Klor-Con M20) 20 meq PO DAILY [facility] Last Admin: 01/26/17 09:23 Dose: 20 meq Senna/Docusate Sodium (Senna Plus) 1 tab PO BID PRN PRN Reason: Constipation Sertraline HCl (Zoloft) 25 mg PO DAILY [facility] Sodium Chloride (Saline Flush) 10 ml FLUSH ASDIRECTED PRN PRN Reason: Keep Vein Open Last Admin: 01/24/17 15:50 Dose: 10 ml Temazepam (Restoril) 15 mg PO BEDTIME PRN PRN Reason: Sleep Last Admin: 01/26/17 20:48 Dose: 15 mg Discontinued Medications Albuterol/Ipratropium (Duoneb 3.0-0.5 Mg/3 Ml) 3 ml NEB ONETIME ONE Stop: 01/24/17 15:08 Last Admin: 01/24/17 16:29 Dose: 3 ml Diphtheria/Tetanus/Acell Pertussis (Adacel) 0.5 ml IM .ONCE ONE Stop: 01/25/17 08:01 Azithromycin 500 mg/ Sodium (Chloride) 250 mls @ 250 mls/hr IV ONETIME ONE Stop: 01/24/17 19:34 Last Admin: 01/24/17 19:45 Dose: Not Given Magnesium Sulfate 2 gm/ Premix 50 mls @ 25 mls/hr IV ONETIME ONE Stop: 01/24/17 20:35 Last Admin: 01/24/17 19:43 Dose: 25 mls/hr Levalbuterol HCl (Xopenex) Confirm Administered Dose 1.25 mg .ROUTE .STK-MED ONE Stop: 01/26/17 20:56 Methylprednisolone Sodium Succinate (Solu-Medrol) 125 mg IVPUSH ONETIME ONE Stop: 01/24/17 15:08 Last Admin: 01/24/17 16:47 Dose: 125 mg Morphine Sulfate (Morphine) 0.5 mg IVPUSH Q4H PRN PRN Reason: Other Stop: 01/29/17 18:31 Last Admin: 01/24/17 19:37 Dose: 0.5 mg Oral Electrolytes (Thermotabs) 1 each PO TID PRN PRN Reason: Other Umeclidinium Parnell (62.5mcg Inh) 0 each INH DAILY ADRIANO Last Admin: 01/25/17 09:34 Dose: Not Given Temazepam (Restoril) 7.5 mg PO BEDTIME PRN PRN Reason: Sleep - Exam Quality Assessment: Reports: Supplemental Oxygen, DVT Prophylaxis General: Reports: Alert, Oriented, Cooperative, No Acute Distress (pleasant; talkative; HON), Other ([place]) HEENT: Reports: Pupils Equal, Mucous Membr. Moist/[facility] Neck: Reports: Supple Lungs: Reports: Normal Respiratory Effort, Decreased Breath Sounds. Denies: Wheezing (resolved today) Cardiovascular: Reports: Regular Rate, Regular Rhythm. Denies: Murmurs GI/Abdominal Exam: Normal Bowel Sounds, Soft, Non-Tender (Male) Exam: Deferred Rectal (Males) Exam: Deferred Back Exam: Reports: Normal Inspection Extremities: Normal Inspection, No Pedal Edema Skin: Reports: Warm, Dry, Intact Neurological: Reports: No New Focal Deficit Psy/Mental Status: Reports: Alert, Normal Affect, Normal Mood *Q Meaningful Use (DIS) - VTE *Q VTE Criteria *Q: - Stroke *Q Stroke Criteria *Q: - AMI *Q AMI Criteria *Q:
[2017-01-27] MEDS ORDERED: Sertraline 25 MG Tab PO SCH (09:00)
[2017-01-27] MEDS: Metoprolol Succinate 25 MG Tab.ER PO SCH (09:08)
[2017-01-27] MEDS: Potassium Chloride 20 MEQ Tab.ER PO SCH (09:08)
[2017-01-27 09:10] VITALS: BP 110/55
[2017-01-27] MEDS: Potassium Chloride/Sodium Chloride Tab PO SCH (09:10)
[2017-01-27] MEDS: guaiFENesin 600 MG Tab.ER PO SCH (09:10)
[2017-01-27] MEDS: Magnesium Oxide 400 MG Tab PO SCH (09:10)
[2017-01-27] MEDS: LUTEIN PO SCH (09:14)
[2017-01-27] MEDS: CHLORTHALIDONE 12.5 MG PO SCH (09:14)
[2017-01-27] MEDS: Formoterol/Mometasone 200-5 MCG 8.8 GM Inhaler IH SCH (09:46)
== END 2017-01-27 11:55 | disposition home or self-care (01) | DRG 191 ==
LOC: JD.ED 14:22 → JD.MS 17:51 → UNDOADMIN 17:51 → JD.MS 01-25 09:43 → UNDODISIN 01-27 11:55
PROVIDERS: ADMIT Internal Medicine; ATTEND Internal Medicine
DX: J44.1 Chronic obstructive pulmonary disease with (acute) exacerbation (principal); E87.1 Hypo-osmolality and hyponatremia; J96.10 Chronic respiratory failure, unspecified whether with hypoxia or hypercapnia; J43.9 Emphysema, unspecified; R06.00 Dyspnea, unspecified; R53.1 Weakness; R26.81 Unsteadiness on feet; R29.6 Repeated falls; D47.3 Essential (hemorrhagic) thrombocythemia; E87.6 Hypokalemia; I10 Essential (primary) hypertension; F32.9 Major depressive disorder, single episode, unspecified; F41.9 Anxiety disorder, unspecified; Z99.81 Dependence on supplemental oxygen; Z87.891 Personal history of nicotine dependence; Z88.8 Allergy status to other drugs, medicaments and biological substances; Z91.041 Radiographic dye allergy status; Z79.899 Other long term (current) drug therapy; Z66 Do not resuscitate
CPT/HCPCS: 36415; 71010; 80053; 84484; 85025; 93005; 94664; 96374; 99285; J2930; J7050; 71020; 71020-26; 80048; 82652; 83735; 84439; 84443; 86140; 87070; 87205; 94640; 94640-76; 94667; 94668; 94760; 94761; 97110-GP; 97112-GP; 97116-GP; 97162-GP; 97165-GO; 97530-GP; 99223; 99232; 99239; 99284; A9270-GY; J0456; J2060; J2270; J2920; J3475

== ENCOUNTER 2017-01-29 02:10 | Inpatient (IN) | payer MEDICARE, BC ==
[2017-01-29] MEDS ORDERED: methylPREDNISolone Sodium Succinate 125 MG/2 ML SDV IVPUSH ONE (02:19)
[2017-01-29] MEDS ORDERED: Albuterol/Ipratropium 3.0-0.5 MG/3 ML Neb Soln NEB ONE (02:19)
[2017-01-29] MEDS ORDERED: Albuterol/Ipratropium 3.0-0.5 MG/3 ML Neb Soln ONE (02:19)
[2017-01-29] MEDS ORDERED: Sodium Chloride 0.9% 10 ML Syringe FLUSH PRN (02:19)
[2017-01-29] MEDS ORDERED: LORazepam 2 MG/ML MDV IVPUSH ONE (02:24)
--- NOTE | 2017-01-29 02:26 | EDM.PDOC ---
ED HPI GENERAL MEDICAL PROBLEM - General Chief Complaint: Respiratory Problem Stated Complaint: [facility] Time Seen by Provider: 01/29/17 02:19 Source of Information: Reports: Patient History Limitations: Reports: Respiratory Distress - History of Present Illness INITIAL COMMENTS - FREE TEXT/NARRATIVE: 81-year-old male with a chief complaint of difficulty breathing. Patient has a history of COPD and was just admitted, discharged 2 days ago. He comes in with worsening shortness of breath. States that it started at about 4 PM yesterday. Has been gradually worsening. Feels like he just can't catch his breath. Has also been coughing. No change in his cough. No chest pain. No known fever. He's been using albuterol at home with no relief. EMS reports that he was on his usual nasal cannula and was having oxygen saturations in the low 80s when they arrived. They did give him an albuterol nebulizer treatment on the way here. He continues to feel very short of breath. This limits the history. - Related Data Allergies Allergy/AdvReac Type Severity Reaction Status Date / Time Iodinated Contrast- Oral and Allergy Hives Verified 01/24/17 14:49 IV Dye blood thinner Allergy Other Uncoded 11/25/16 13:08 Home Meds: Home Meds Albuterol [Ventolin HFA] 2 - 4 inh INH Q4H PRN 11/25/16 [History] Budesonide/Formoterol [Symbicort 160-4.5 MCG] 2 inh INH BID 11/25/16 [History] Chlorthalidone 12.5 mg PO DAILY 11/25/16 [History] Metoprolol Succinate 25 mg PO DAILY 11/25/16 [History] Latanoprost [Xalatan 0.005% Ophth Soln] 2.5 ml EYEBOTH BEDTIME 01/24/17 [History ] Lutein 1 cap PO BID 01/24/17 [History] Acetaminophen [Tylenol] 650 mg PO Q4H PRN #0 tablet 01/27/17 [Rx] Albuterol/Ipratropium [DuoNeb 3.0-0.5 MG/3 ML] 3 ml NEB Q4H PRN #1 box 01/27/17 [Rx] Docusate Sodium [Colace] 100 mg PO BID #60 cap 01/27/17 [Rx] Magnesium Oxide 400 mg PO BID #60 tablet 01/27/17 [Rx] Polyethylene Glycol 3350 [MiraLAX] 17 gm PO DAILY PRN #0 packet 01/27/17 [Rx] Potassium Chloride [Klor-Con M20] 20 meq PO DAILY #30 tab.er 01/27/17 [Rx] Prednisone [IJD: Prednisone] 10 mg PO DAILY #0 01/27/17 [Rx] Prednisone [IJD: Prednisone] 10 mg PO DAILY #30 tab 01/27/17 [Rx] Sertraline [Zoloft] 25 mg PO DAILY #30 tablet 01/27/17 [Rx] guaiFENesin [Mucinex] 600 mg PO BID #60 tab.er 01/27/17 [Rx] Past Medical History HEENT History: Reports: Impaired Vision 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 Cardiovascular History: Reports: Hypertension Respiratory History: Reports: COPD, Other (See Below) Other Respiratory History: emphysema Gastrointestinal History: Reports: GERD, Other (See Below) Other Gastrointestinal History: crohns disease Genitourinary History: Reports: None Musculoskeletal History: Reports: None Neurological History: Reports: None Psychiatric History: Reports: Anxiety, Depression Endocrine/Metabolic History: Reports: None Oncologic (Cancer) History: Reports: None Dermatologic History: Reports: Eczema - Infectious Disease History Infectious Disease History: Reports: Chicken Pox - Past Surgical History GI Surgical History: Reports: Cholecystectomy Musculoskeletal Surgical History: Reports: Other (See Below) Other Musculoskeletal Surgeries/Procedures:: hip pain and shoulder pain-goes to a chiropractor on occasion Social & Family History - Family History Family Medical History: Noncontributory Cardiac: Reports: Aneurysm Other Cardiac Family History: mother, brain Oncologic: Reports: Esophageal, Lung Other Oncologic Family History: brother/sisters - Tobacco Use Smoking Status *Q: Former Smoker Years of Tobacco use: 65 Packs/Tins Daily: 2 Used Tobacco, but Quit: Yes Month Tobacco Last Used: 6 Second Hand Smoke Exposure: No - Caffeine Use Caffeine Use: Reports: Coffee - Recreational Drug Use Recreational Drug Use: No ED ROS GENERAL - Review of Systems Review Of Systems: See Below Constitutional: Denies: Fever HEENT: Reports: No Symptoms Respiratory: Reports: Shortness of Breath, Wheezing, Cough Cardiovascular: Denies: Chest Pain Endocrine: Reports: No Symptoms GI/Abdominal: Denies: Abdominal Pain : Reports: No Symptoms Musculoskeletal: Reports: No Symptoms Skin: Reports: No Symptoms Neurological: Reports: No Symptoms Psychiatric: Reports: No Symptoms ED EXAM, GENERAL - Physical Exam Exam: See Below Exam Limited By: No Limitations General Appearance: Alert, Anxious, Mild Distress Eye Exam: Bilateral Eye: Normal Inspection Ears: Normal External Exam Nose: Normal Inspection Throat/Mouth: Normal Inspection, Normal Voice, No Airway Compromise Head: Atraumatic, Normocephalic Neck: Normal Inspection, Supple, Non-Tender, Full Range of Motion Respiratory/Chest: Decreased Breath Sounds, Wheezing, Accessory Muscle Use, Prolonged Expiration Cardiovascular: Normal Peripheral Pulses, Regular Rate, Rhythm, No Edema GI/Abdominal: Soft, Non-Tender, No Distention. No: Rebound Back Exam: Normal Inspection Extremities: Normal Inspection Neurological: Alert, Oriented, Normal Cognition, No Motor/Sensory Deficits Psychiatric: Normal Affect, Normal Mood Skin Exam: Warm, Dry, Intact, Normal Color, No Rash Course - Vital Signs Last Recorded V/S: Last Vital Signs Temp 36.7 C 01/29/17 02:50 Pulse 84 01/29/17 02:50 Resp 20 01/29/17 02:50 BP 142/76 H 01/29/17 02:50 Pulse Ox 97 01/29/17 02:50 - Orders/Labs/Meds Orders: Active Orders 24 hr Category Date Time Status EKG 12 Lead [EKG Documentation Completion] [RC] STAT Care 01/29/17 02:19 Active Peripheral IV Care [RC] . DIRECTED Care 01/29/17 02:19 Active RT Aerosol Therapy [RC] ASDIRECTED Care 01/29/17 02:19 Active RT Aerosol Therapy [RC] ASDIRECTED Care 01/29/17 02:42 Active Chest 1V Frontal [CR] Stat Exams 01/29/17 02:19 Taken Albuterol/Ipratropium [DuoNeb 3.0-0.5 MG/3 ML] Med 01/29/17 02:42 Active 3 ml NEB Q2H PRN Sodium Chloride 0.9% [Saline Flush] Med 01/29/17 02:19 Active 10 ml FLUSH ASDIRECTED PRN Peripheral IV Insertion Adult [OM.PC] Routine Oth 01/29/17 02:19 Ordered Medication Orders Albuterol/Ipratropium (Duoneb 3.0-0.5 Mg/3 Ml) 3 ml NEB Q2H PRN PRN Reason: Shortness of Breath Sodium Chloride (Saline Flush) 10 ml FLUSH ASDIRECTED PRN PRN Reason: Keep Vein Open Last Admin: 01/29/17 02:24 Dose: 10 ml Labs: Laboratory Tests 01/29/17 01/29/17 Range/Units 02:35 02:35 WBC 12.70 H (4.23-9.07) K/mm3 RBC 3.98 L (4.63-6.08) M/mm3 Hgb 11.4 L (13.7-17.5) gm/L Hct 33.7 L (40.1-51.0) % MCV 84.7 (79.0-92.2) fl MCH 28.6 (25.7-32.2) pg MCHC 33.8 (32.2-35.5) g/dl RDW Std Deviation 43.6 (35.1-43.9) fL Plt Count 335 (163-337) K/mm3 MPV 8.2 L (9.4-12.3) fl Neut % (Auto) 80.5 H (34.0-67.9) % Lymph % (Auto) 8.3 L (21.8-53.1) % [place] % (Auto) 9.9 (5.3-12.2) % Eos % (Auto) 0.3 L (0.8-7.0) Baso % (Auto) 0.1 (0.1-1.2) % Neut # (Auto) 10.23 H (1.78-5.38) K/mm3 Lymph # (Auto) 1.05 L (1.32-3.57) K/mm3 [place] # (Auto) 1.26 H (0.30-0.82) K/mm3 Eos # (Auto) 0.04 (0.04-0.54) K/mm3 Baso # (Auto) 0.01 (0.01-0.08) K/mm3 Manual Slide Review Abnormal smear Sodium 118 L (136-145) mEq/L Potassium 4.3 (3.5-5.1) mEq/L Chloride 86 L (98-107) mEq/L Carbon Dioxide 28 (21-32) mEq/L Anion Gap 8.3 (5-15) BUN 22 H (7-18) mg/dL Creatinine 1.0 (0.7-1.3) mg/dL Est Cr Clr Drug Dosing TNP Estimated GFR (MDRD) > 60 (>60) mL/min BUN/Creatinine Ratio 22.0 H (14-18) Glucose 109 (83-115) mg/dL Calcium 8.2 L (8.5-10.1) mg/dL Magnesium 1.6 L (1.8-2.4) mg/dl Total Bilirubin 1.3 H (0.2-1.0) mg/dL AST 56 H (15-37) U/L ALT 70 H (16-63) U/L Alkaline Phosphatase 70 (46-116) U/L Troponin I 0.057 H* (0.00-0.056) ng/mL Total Protein 5.9 L (6.4-8.2) g/dl Albumin 3.4 (3.4-5.0) g/dl Globulin 2.5 gm/dL Albumin/Globulin Ratio 1.4 (1-2) Meds: Medications Generic Name Dose Route Start Last Admin Trade Name Fregladys PRN Reason Stop Dose Admin Albuterol/Ipratropium 3 ml 01/29/17 02:42 Duoneb 3.0-0.5 Mg/3 Ml NEB Q2H PRN Shortness of Breath Sodium Chloride 10 ml 01/29/17 02:19 01/29/17 02:24 Saline Flush FLUSH 10 ml ASDIRECTED PRN Administration Keep Vein Open Discontinued Medications Generic Name Dose Route Start Last Admin Trade Name Freq PRN Reason Stop Dose Admin Albuterol/Ipratropium Confirm 01/29/17 02:19 01/29/17 02:21 Duoneb 3.0-0.5 Mg/3 Ml Administered 01/29/17 02:20 3 ml Dose Administration 3 ml .ROUTE .STK-MED ONE Albuterol/Ipratropium 3 ml 01/29/17 02:19 01/29/17 02:21 Duoneb 3.0-0.5 Mg/3 Ml NEB 01/29/17 02:20 Not Given ONETIME ONE Lorazepam 0.5 mg 01/29/17 02:24 01/29/17 02:28 Ativan IVPUSH 01/29/17 02:25 0.5 mg ONETIME ONE Administration Methylprednisolone Sodium Succinate 125 mg 01/29/17 02:19 01/29/17 02:24 Solu-Medrol IVPUSH 01/29/17 02:20 125 mg ONETIME ONE Administration - Re-Assessments/Exams Free Text/Narrative Re-Assessment/Exam: 01/29/17 02:58 Breathing is somewhat improved after duoneb. EKG shows NSR, no evidence of acute ischemia or arrhythmia. CXR shows hyperinflation, no infiltrate or ptx. WBC mildly elevated in context of recent steroids. Discussed with Dr. Crane who agrees to admit the patient for further care. Departure - Departure Time of Disposition: 02:50 Disposition: Admitted As Inpatient 67 Clinical Impression: COPD exacerbation, Hypoxemia, Hyponatremia - Discharge Information - My Orders Last 24 Hours: My Active Orders 01/29/17 02:19 EKG 12 Lead [EKG Documentation Completion] [RC] STAT Peripheral IV Care [RC] . DIRECTED RT Aerosol Therapy [RC] ASDIRECTED Chest 1V Frontal [CR] Stat Sodium Chloride 0.9% [Saline Flush] 10 ml FLUSH ASDIRECTED PRN Peripheral IV Insertion Adult [OM.PC] Routine 01/29/17 02:42 RT Aerosol Therapy [RC] ASDIRECTED Albuterol/Ipratropium [DuoNeb 3.0-0.5 MG/3 ML] 3 ml NEB Q2H PRN - Assessment/Plan Last 24 Hours: My Active Orders 01/29/17 02:19 EKG 12 Lead [EKG Documentation Completion] [RC] STAT Peripheral IV Care [RC] . DIRECTED RT Aerosol Therapy [RC] ASDIRECTED Chest 1V Frontal [CR] Stat Sodium Chloride 0.9% [Saline Flush] 10 ml FLUSH ASDIRECTED PRN Peripheral IV Insertion Adult [OM.PC] Routine 01/29/17 02:42 RT Aerosol Therapy [RC] ASDIRECTED Albuterol/Ipratropium [DuoNeb 3.0-0.5 MG/3 ML] 3 ml NEB Q2H PRN
[2017-01-29] MEDS ORDERED: Aluminum Hydroxide/Magnesium Hydroxide/Simethicone Susp 30 ML Cup PO ONE (04:12)
[2017-01-29] MEDS ORDERED: LORazepam 2 MG/ML MDV IVPUSH PRN ×4 (04:15→19:50)
[2017-01-29] MEDS ORDERED: Morphine 2 MG/ML Syringe IVPUSH PRN (04:15)
[2017-01-29] MEDS: Albuterol/Ipratropium 3.0-0.5 MG/3 ML Neb Soln NEB PRN ×4 (05:14→21:13)
--- NOTE | 2017-01-29 07:03 | PCM.HP ---
H&P History of Present Illness - General Date of Service: 01/29/17 Admit Problem/Dx: Admission Diagnosis/Problem Admission Diagnosis/Problem Hyponatremia Source of Information: Patient, Old Records, Provider, RN Notes Reviewed History Limitations: Reports: No Limitations - History of Present Illness Initial Comments - Free Text/Narative: This is an 81 yo elderly white male with past medical hx/o COPD, Chronic Respiratory Failure on 3L [place], Anxiety and Depression who presents to ED with complaints of worsening shortness of breath that has been going on for a few months now. He has been seen here in ED for the past couple of months for the same chief of complaint. Patient has been treated with Prednisone but w/o much success. Patient carries a hx/o Advanced Emphysema. He used to smoke 2 ppd and quit 6-7 years ago. He is currently on 3L [place] supplemental O2. He follows Dr. Emmanuel in [place] for his pulmonary care. His last visit with him was about a year ago. Patient reports associated non-productive cough. He denies any fever or chills. He admits to being compliant with his maintenance medications. Patient lives alone and is very independent. His initial work up in ED shows a CBC remarkable for WBC of 9.11, RBC of 4.24, hemoglobin of 11.9, hematocrit of 35.7, platelet count of 382, neutrophils of 74 % lymphocytes of 13.4% and monocyte count of 0.95. His chemistry is remarkable for sodium of 124 and chloride of 88. His chest x-ray shows hyperinflated lungs. Patient is being admitted for acute exacerbation of COPD. He is DNR/DNI. - Related Data Allergies/Adverse Reactions: Allergies Allergy/AdvReac Type Severity Reaction Status Date / Time Iodinated Contrast- Oral and Allergy Hives Verified 01/24/17 14:49 IV Dye blood thinner Allergy Other Uncoded 11/25/16 13:08 Home Medications: Home Meds Albuterol [Ventolin HFA] 2 - 4 inh INH Q4H PRN 11/25/16 [History] Budesonide/Formoterol [Symbicort 160-4.5 MCG] 2 inh INH BID 11/25/16 [History] Chlorthalidone 12.5 mg PO DAILY 11/25/16 [History] Metoprolol Succinate 25 mg PO DAILY 11/25/16 [History] Latanoprost [Xalatan 0.005% Ophth Soln] 1 drop EYEBOTH BEDTIME 01/24/17 [History ] Lutein 1 cap PO BID 01/24/17 [History] Acetaminophen [Tylenol] 650 mg PO Q4H PRN #0 tablet 01/27/17 [Rx] Albuterol/Ipratropium [DuoNeb 3.0-0.5 MG/3 ML] 3 ml NEB Q4H PRN #1 box 01/27/17 [Rx] Docusate Sodium [Colace] 100 mg PO BID #60 cap 01/27/17 [Rx] Magnesium Oxide 400 mg PO BID #60 tablet 01/27/17 [Rx] Polyethylene Glycol 3350 [MiraLAX] 17 gm PO DAILY PRN #0 packet 01/27/17 [Rx] Potassium Chloride [Klor-Con M20] 20 meq PO DAILY #30 tab.er 01/27/17 [Rx] Prednisone [IJD: Prednisone] 10 mg PO DAILY #30 tab 01/27/17 [Rx] Sertraline [Zoloft] 25 mg PO DAILY #30 tablet 01/27/17 [Rx] guaiFENesin [Mucinex] 600 mg PO BID #60 tab.er 01/27/17 [Rx] Past Medical History HEENT History: Reports: Impaired Vision 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 Cardiovascular History: Reports: Hypertension Respiratory History: Reports: COPD, Other (See Below) Other Respiratory History: emphysema Gastrointestinal History: Reports: GERD, Other (See Below) Other Gastrointestinal History: crohns disease Genitourinary History: Reports: None Musculoskeletal History: Reports: None Neurological History: Reports: None Psychiatric History: Reports: Anxiety, Depression Endocrine/Metabolic History: Reports: None Oncologic (Cancer) History: Reports: None Dermatologic History: Reports: Eczema - Infectious Disease History Infectious Disease History: Reports: Chicken Pox - Past Surgical History GI Surgical History: Reports: Cholecystectomy Musculoskeletal Surgical History: Reports: Other (See Below) Other Musculoskeletal Surgeries/Procedures:: hip pain and shoulder pain-goes to a chiropractor on occasion Social & Family History - Family History Family Medical History: Noncontributory Cardiac: Reports: Aneurysm Other Cardiac Family History: mother, brain Oncologic: Reports: Esophageal, Lung Other Oncologic Family History: brother/sisters - Tobacco Use Smoking Status *Q: Former Smoker Years of Tobacco use: 65 Packs/Tins Daily: 2 Used Tobacco, but Quit: Yes Month Tobacco Last Used: 6 Second Hand Smoke Exposure: No - Caffeine Use Caffeine Use: Reports: Coffee - Alcohol Use Days Per Week of Alcohol Use: 1 Number of Drinks Per Day: 0 Total Drinks Per Week: 0 - Recreational Drug Use Recreational Drug Use: No Exam - Vital Signs Vital Signs: Last Vital Signs Temp 36.7 C 01/29/17 02:50 Pulse 78 01/29/17 04:45 Resp 24 H 01/29/17 04:45 BP 133/60 01/29/17 04:45 Pulse Ox 93 L 01/29/17 05:15 Weight: 74.933 kg - Patient Data Result Diagrams: 01/29/17 02:35 01/29/17 02:35 *Q Meaningful Use (ADM) - VTE *Q VTE Criteria *Q: - Stroke *Q Stroke Criteria *Q: - AMI *Q AMI Criteria *Q: Problem List Initiated/Reviewed/Updated: Yes Orders Last 24hrs: Active Orders 24 hr Category Date Time Status Up With Assistance [RC] ASDIRECTED Care 01/29/17 04:25 Active Morphine [MS Contin] Med 01/29/17 06:00 Active 15 mg PO Q8H Medication Orders Albuterol/Ipratropium (Duoneb 3.0-0.5 Mg/3 Ml) 3 ml NEB Q2H PRN PRN Reason: Shortness of Breath Last Admin: 01/29/17 05:14 Dose: 3 ml Lorazepam (Ativan) 0.5 mg IVPUSH ONETIME PRN PRN Reason: Anxiety Last Admin: 01/29/17 05:18 Dose: 0.5 mg Morphine Sulfate (Morphine) 1 mg IVPUSH Q4H PRN PRN Reason: Shortness of Breath Last Admin: 01/29/17 04:40 Dose: 1 mg Morphine Sulfate (Ms Contin) 15 mg PO Q8H ADRIANO Sodium Chloride (Saline Flush) 10 ml FLUSH ASDIRECTED PRN PRN Reason: Keep Vein Open Last Admin: 01/29/17 02:24 Dose: 10 ml Assessment/Plan Comment:: Assessment: Acute: COPD Exacerbation - Has Advanced Emphysema on CXR - Failed Outpatient Treatment - He has been seen in ED for the past couple of months - He follows Dr. Emmanuel - IV Steroids, Scheduled and PRN Bronchodilators, IV Morphine, IV Magnesium Sulfate, IV Azithromycin, Supplemental O2 - FV Q2 awake - Decongestant/Expectorant - PRN IVP Morphine for Dyspnea - Sputum Cx/Sx Thrombocytosis - Mildly Elevated - Platelet of 382 - Possibly stress - Will monitor Hyponatremia - Na 124 - Likely from Pulmonary Insufficiency - Due to low KEYSHA level (converts AI to AII) --> low levels of Aldosterone - Salt Tablet 1 1tab po TID - Monitor levels Chronic: Respiratory Failure, On 3L NC baseline, Currently at 2L NC HTN Anxiety Depression Plan: Admit to inpatient with Pulse-Ox Routine AM Labs Resume Home Medications PRN Medications PT/OT/RT consult SW/CM for d/c planning Additional orders as above Code status: DNR/DNI
[2017-01-29] MEDS ORDERED: Metoprolol Tartrate 5 MG/5 ML SDV IVPUSH PRN (07:05)
[2017-01-29] MEDS ORDERED: hydrALAZINE 20 MG/ML SDV IVPUSH PRN (07:05)
[2017-01-29] MEDS ORDERED: Acetaminophen 325 MG Tab PO PRN ×2 (07:07→07:13)
[2017-01-29] MEDS ORDERED: Promethazine 12.5 MG in Sodium Chloride 0.9% 50 ML IV PRN (07:07)
[2017-01-29] MEDS ORDERED: Bisacodyl 5 MG Tab PO PRN (07:07)
[2017-01-29] MEDS ORDERED: Polyethylene Glycol 3350 Powder 17 GM Packet PO PRN ×2 (07:07→07:13)
[2017-01-29] MEDS ORDERED: HYDROmorphone 1 MG/ML Syringe IVPUSH PRN (07:07)
[2017-01-29] MEDS ORDERED: Acetaminophen/HYDROcodone 325-5 MG Tab PO PRN (07:07)
[2017-01-29] MEDS ORDERED: Docusate Sodium 100 MG Cap PO PRN (07:07)
[2017-01-29] MEDS: Morphine 15 MG Tab.ER PO SCH ×3 (07:58→21:05)
[2017-01-29] MEDS: Docusate Sodium 100 MG Cap PO SCH ×2 (08:27→21:07)
[2017-01-29] MEDS: Magnesium Oxide 400 MG Tab PO SCH ×2 (08:27→21:07)
[2017-01-29] MEDS: Metoprolol Succinate 25 MG Tab.ER PO SCH (08:27)
[2017-01-29] MEDS: Sertraline 25 MG Tab PO SCH (08:27)
[2017-01-29] MEDS: Potassium Chloride 20 MEQ Tab.ER PO SCH (08:27)
[2017-01-29] MEDS: guaiFENesin 600 MG Tab.ER PO SCH ×2 (08:31→21:05)
[2017-01-29] MEDS ORDERED: LUTEIN PO SCH (09:00)
[2017-01-29] MEDS: Formoterol/Mometasone 200-5 MCG 8.8 GM Inhaler IH SCH ×2 (09:18→21:13)
[2017-01-29] MEDS: Ondansetron 4 MG/2 ML SDV IV PRN ×2 (10:57→21:35)
[2017-01-29] MEDS: Potassium Chloride/Sodium Chloride Tab PO SCH ×3 (11:01→21:05)
[2017-01-29] MEDS ORDERED: Magnesium Sulfate/Water 2 GM in Premix Bag 1 BAG IV ONE (14:00)
--- NOTE | 2017-01-29 17:29 | CR ---
Chest: Portable view of the chest was obtained. Comparison: Previous chest x-ray of 01/26/17 is available. Heart size appears within normal limits for portable technique. Main pulmonary arteries are mildly prominent which appear stable. Central lung markings are slightly increased which is stable. Lungs are hyperinflated compatible with emphysematous change. No acute appearing infiltrates are seen. Nodular density noted within the left upper lung which is felt to be present on prior study but better seen currently and this appears slightly more prominent on baseline study of 11/25/16. Bony structures are osteopenic. Impression: 1. Nodular density within the left upper chest. Noncontrast chest CT recommended to hopefully rule out pulmonary mass. 2. Emphysematous change and other incidental findings. Diagnostic code #9
--- NOTE | 2017-01-29 18:21 | PCM.HP ---
H&P History of Present Illness - General Date of Service: 01/29/17 Admit Problem/Dx: Admission Diagnosis/Problem Admission Diagnosis/Problem Hyponatremia Source of Information: Patient, Old Records, Provider, RN Notes Reviewed, Significant Other History Limitations: Reports: Respiratory Distress - History of Present Illness Initial Comments - Free Text/Narative: This is an 81 yo elderly white male with past medical hx/o COPD, Chronic Respiratory Failure on 3L NC, Anxiety and Depression who presents to ED with complaints of difficulty breathing and worsening shortness of breath. He was just discharged 2 days go with similar presenting illness. Patient reports associated non-productive cough. He denies any fever or chills. Patient is known to the hospitalist team, we took care of him on previous admission. His initial work up in ED shows a CBC remarkable for WBC of 12.70, RBC of 3.98, hemoglobin of 11.4, hematocrit of 33.7, neutrophils of 80.5%, lymphocytes of 8.3 % and monocyte count of 1.26. His chemistry is remarkable for sodium of 118 ( 124 on his previous admission), chloride of 86, BUN of 22, Ca of 8.2, Mg of 1.6 , total bilirubin of 1.3, AST of 56, ALT of 70, troponin of 0.057 and total protein of 5.9. His chest x-ray shows hyperinflated lungs. His EKG shows NSR. Patient is being admitted for acute on chronic respiratory failure and acute exacerbation of COPD. He is DNR/DNI. - Related Data Allergies/Adverse Reactions: Allergies Allergy/AdvReac Type Severity Reaction Status Date / Time Iodinated Contrast- Oral and Allergy Hives Verified 01/24/17 14:49 IV Dye blood thinner Allergy Other Uncoded 11/25/16 13:08 Home Medications: Home Meds Albuterol [Ventolin HFA] 2 - 4 inh INH Q4H PRN 11/25/16 [History] Budesonide/Formoterol [Symbicort 160-4.5 MCG] 2 inh INH BID 11/25/16 [History] Chlorthalidone 12.5 mg PO DAILY 11/25/16 [History] Metoprolol Succinate 25 mg PO DAILY 11/25/16 [History] Latanoprost [Xalatan 0.005% Oph Soln] 1 drop EYEBOTH BEDTIME 01/24/17 [History ] Lutein 1 cap PO BID 01/24/17 [History] Acetaminophen [Tylenol] 650 mg PO Q4H PRN #0 tablet 01/27/17 [Rx] Albuterol/Ipratropium [DuoNeb 3.0-0.5 MG/3 ML] 3 ml NEB Q4H PRN #1 box 01/27/17 [Rx] Docusate Sodium [Colace] 100 mg PO BID #60 cap 01/27/17 [Rx] Magnesium Oxide 400 mg PO BID #60 tablet 01/27/17 [Rx] Polyethylene Glycol 3350 [MiraLAX] 17 gm PO DAILY PRN #0 packet 01/27/17 [Rx] Potassium Chloride [Klor-Con M20] 20 meq PO DAILY #30 tab.er 01/27/17 [Rx] Prednisone [IJD: Prednisone] 10 mg PO DAILY #30 tab 01/27/17 [Rx] Sertraline [Zoloft] 25 mg PO DAILY #30 tablet 01/27/17 [Rx] guaiFENesin [Mucinex] 600 mg PO BID #60 tab.er 01/27/17 [Rx] Past Medical History HEENT History: Reports: Impaired Vision 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 Cardiovascular History: Reports: Hypertension Respiratory History: Reports: COPD, Other (See Below) Other Respiratory History: emphysema Gastrointestinal History: Reports: GERD, Other (See Below) Other Gastrointestinal History: crohns disease Genitourinary History: Reports: None Musculoskeletal History: Reports: None Neurological History: Reports: None Psychiatric History: Reports: Anxiety, Depression Endocrine/Metabolic History: Reports: None Oncologic (Cancer) History: Reports: None Dermatologic History: Reports: Eczema - Infectious Disease History Infectious Disease History: Reports: Chicken Pox - Past Surgical History GI Surgical History: Reports: Cholecystectomy Musculoskeletal Surgical History: Reports: Other (See Below) Other Musculoskeletal Surgeries/Procedures:: hip pain and shoulder pain-goes to a chiropractor on occasion Social & Family History - Family History Family Medical History: Noncontributory Cardiac: Reports: Aneurysm Other Cardiac Family History: mother, brain Oncologic: Reports: Esophageal, Lung Other Oncologic Family History: brother/sisters - Tobacco Use Smoking Status *Q: Former Smoker Years of Tobacco use: 65 Packs/Tins Daily: 2 Used Tobacco, but Quit: Yes Month Tobacco Last Used: 6 Second Hand Smoke Exposure: No - Caffeine Use Caffeine Use: Reports: Coffee - Alcohol Use Days Per Week of Alcohol Use: 1 Number of Drinks Per Day: 0 Total Drinks Per Week: 0 - Recreational Drug Use Recreational Drug Use: No H&P Review of Systems - Review of Systems: Review Of Systems: See Below General: Reports: Fatigue. Denies: Fever, Chills, Malaise, Weakness HEENT: Reports: No Symptoms Pulmonary: Reports: Shortness of Breath, Wheezing, Cough Cardiovascular: Reports: Dyspnea on Exertion. Denies: Chest Pain, Edema, Lightheadedness Gastrointestinal: Denies: Abdominal Pain, Nausea, Vomiting Genitourinary: Reports: No Symptoms Musculoskeletal: Reports: No Symptoms Skin: Denies: Cyanosis Psychiatric: Reports: Anxiety. Denies: Depression, Agitation, Hallucinations Neurological: Denies: Confusion, Difficulty Walking, Weakness, Gait Disturbance Hematologic/Lymphatic: Reports: No Symptoms Immunologic: Reports: No Symptoms Exam - Exam Exam: See Below - Vital Signs Vital Signs: Last Vital Signs Temp 37.1 C 01/29/17 15:32 Pulse 73 01/29/17 15:32 Resp 20 01/29/17 15:32 BP 97/68 01/29/17 15:32 Pulse Ox 95 01/29/17 15:32 Weight: 74.933 kg - Exam Quality Assessment: Supplemental Oxygen General: Alert, Oriented, Cooperative. No: Mild Distress HEENT: Conjunctiva Clear, EACs Clear, Mucosa Moist & [place], Nares Patent, Posterior Pharynx Clear, Pupils Equal Neck: Supple, Trachea Midline, +2 Carotid Pulse wo Bruit, Other (No accessory muscle use) Lungs: Decreased Breath Sounds, Wheezing Cardiovascular: Regular Rate, Regular Rhythm GI/Abdominal Exam: Normal Bowel Sounds, Soft, Non-Tender, No Organomegaly, No Distention, No Abnormal Bruit, No Mass (Male) Exam: Deferred Rectal (Males) Exam: Deferred Back Exam: Normal Inspection, Decreased Range of Motion Extremities: Normal Inspection, Normal Range of Motion, Non-Tender, No Pedal Edema, Normal Capillary Refill Skin: Warm, Dry, Intact Neuro Extensive - Mental Status: Oriented x3, Normal Cognition, Memory Intact Neuro Extensive - Motor, Sensory, Reflexes: CN II-XII Intact (fairly intact) Psychiatric: Alert, Normal Affect, Normal Mood - Patient Data Result Diagrams: 01/29/17 02:35 01/29/17 02:35 *Q Meaningful Use (ADM) - VTE *Q VTE Criteria *Q: - Stroke *Q Stroke Criteria *Q: - AMI *Q AMI Criteria *Q: Problem List Initiated/Reviewed/Updated: Yes Orders Last 24hrs: Active Orders 24 hr Category Date Time Status Antiembolic Devices [RC] PER UNIT ROUTINE Care 01/29/17 07:12 Active Height and Weight [RC] 04 Care 01/29/17 07:07 Active Intake and Output [RC] 04,16 Care 01/29/17 07:07 Active Oxygen Therapy [RC] PRN Care 01/29/17 07:07 Active Pulse Oximetry [RC] CONTINUOUS Care 01/29/17 07:08 Active Up With Assistance [RC] ASDIRECTED Care 01/29/17 04:25 Active VTE/DVT Education [RC] DAILY Care 01/29/17 07:07 Active Vital Signs [RC] Q4HR Care 01/29/17 07:07 Active Consult to Case Management [CONS] Routine Cons 01/29/17 07:12 Active Consult to Ase Certified Technician [CONS] Routine Cons 01/29/17 07:12 Active Consult to Spiritual Care [CONS] Routine Cons 01/29/17 07:12 Active OT Evaluation and Treatment [CONS] Routine Cons 01/29/17 07:12 Active PT Evaluation and Treatment [CONS] Routine Cons 01/29/17 07:12 Active Respiratory Care Assess and Treatment [CONS] Routine Cons 01/29/17 07:12 Active BASIC METABOLIC PANEL,BMP [CHEM] AM Lab 01/30/17 05:11 Ordered BASIC METABOLIC PANEL,BMP [CHEM] AM Lab 01/31/17 05:11 Ordered BASIC METABOLIC PANEL,BMP [CHEM] AM Lab 02/01/17 05:11 Ordered BASIC METABOLIC PANEL,BMP [CHEM] AM Lab 02/02/17 05:11 Ordered CBC WITH AUTO DIFF [HEME] AM Lab 01/30/17 05:11 Ordered MAGNESIUM [CHEM] AM Lab 01/30/17 05:11 Ordered MAGNESIUM [CHEM] AM Lab 01/31/17 05:11 Ordered MAGNESIUM [CHEM] AM Lab 02/01/17 05:11 Ordered MAGNESIUM [CHEM] AM Lab 02/02/17 05:11 Ordered Acetaminophen [Tylenol] Med 01/29/17 07:07 Active 650 mg PO Q4H PRN Acetaminophen/HYDROcodone [[place] 325-5 MG] Med 01/29/17 07:07 Active 1 tab PO Q4H PRN Bisacodyl [Dulcolax] Med 01/29/17 07:07 Active 5 mg PO DAILY PRN Docusate Sodium [Colace] Med 01/29/17 09:00 Active 100 mg PO BID Docusate Sodium [Colace] Med 01/29/17 07:07 Active 100 mg PO BID PRN Docusate Sodium/Sennosides [Senna Plus] Med 01/29/17 07:07 Active 1 tab PO BID PRN HYDROmorphone [Dilaudid] Med 01/29/17 07:07 Active 0.25 mg IVPUSH Q2H PRN LORazepam [Ativan] Med 01/29/17 10:38 Active 0.5 mg IVPUSH Q4H PRN LORazepam [Ativan] Med 01/29/17 07:05 Active 2 mg IVPUSH Q4H PRN Latanoprost [Xalatan 0.005% Ophth Soln] Med 01/29/17 21:00 Active 0 ml EYEBOTH BEDTIME Lutein [Lutein] Med 01/29/17 09:00 Pending 1 cap PO BID Magnesium Oxide Med 01/29/17 09:00 Active 400 mg PO BID Magnesium Rep Pharmacy to Dose [Pharmacy to Dose - Med 01/29/17 07:15 Pending Magnesium Replacement] 1 dose .XX ASDIRECTED Metoprolol Succinate [Toprol XL] Med 01/29/17 09:00 Active 25 mg PO DAILY Metoprolol Tartrate [Lopressor] Med 01/29/17 07:05 Active 5 mg IVPUSH Q4H PRN Mometasone/Formoterol [Dulera 200-5 MCG] Med 01/29/17 07:30 Active 2 puff IH BIDRT Morphine [MS Contin] Med 01/29/17 06:00 Active 15 mg PO Q8H Ondansetron [Zofran] Med 01/29/17 07:07 Active 4 mg IV Q6H PRN Polyethylene Glycol 3350 [MiraLAX] Med 01/29/17 07:07 Active 17 gm PO DAILY PRN Potassium Chloride [Klor-Con M20] Med 01/29/17 09:00 Active 20 meq PO DAILY Potassium Chloride/NaCl [Thermotabs] Med 01/29/17 10:30 Active 2 each PO TID Potassium Rep Pharmacy to Dose [Pharmacy to Dose - Med 01/29/17 07:15 Pending Potassium Replacement] 1 dose .XX ASDIRECTED Promethazine [Phenergan] 12.5 mg Med 01/29/17 07:07 Active Sodium Chloride 0.9% [Normal Saline] 50 ml IV Q6H Sertraline [Zoloft] Med 01/29/17 09:00 Active 25 mg PO DAILY Temazepam [Restoril] Med 01/29/17 07:07 Active 7.5 mg PO BEDTIME PRN guaiFENesin [Mucinex] Med 01/29/17 09:00 Active 600 mg PO BID hydrALAZINE [Apresoline] Med 01/29/17 07:05 Active 20 mg IVPUSH Q4H PRN Sequential Compression Device [OM.PC] Per Unit Routine Oth 01/29/17 07:08 Ordered Medication Orders Acetaminophen (Tylenol) 650 mg PO Q4H PRN PRN Reason: Pain (Mild 1-3)/fever Hydrocodone Bitart/Acetaminophen ([place] 325-5 Mg) 1 tab PO Q4H PRN PRN Reason: Pain (moderate 4-6) Albuterol/Ipratropium (Duoneb 3.0-0.5 Mg/3 Ml) 3 ml NEB Q2H PRN PRN Reason: Shortness of Breath Last Admin: 01/29/17 13:08 Dose: 3 ml Admin: 01/29/17 09:17 Dose: 3 ml Admin: 01/29/17 05:14 Dose: 3 ml Bisacodyl (Dulcolax) 5 mg PO DAILY PRN PRN Reason: Constipation Docusate Sodium (Colace) 100 mg PO BID PRN PRN Reason: Constipation Docusate Sodium (Colace) 100 mg PO BID [facility] Last Admin: 01/29/17 08:27 Dose: 100 mg Guaifenesin (Mucinex) 600 mg PO BID [facility] Last Admin: 01/29/17 08:31 Dose: 600 mg Hydralazine HCl (Apresoline) 20 mg IVPUSH Q4H PRN PRN Reason: Hypertension Hydromorphone HCl (Dilaudid) 0.25 mg IVPUSH Q2H PRN PRN Reason: Pain (severe 7-10) Promethazine HCl 12.5 mg/ (Sodium Chloride) 50.5 mls @ 100 mls/hr IV Q6H PRN PRN Reason: Nausea/Vomiting Latanoprost (Xalatan 0.005% Ophth Soln) 0 ml EYEBOTH BEDTIME [facility] Lorazepam (Ativan) 0.5 mg IVPUSH ONETIME PRN PRN Reason: Anxiety Last Admin: 01/29/17 05:18 Dose: 0.5 mg Lorazepam (Ativan) 2 mg IVPUSH Q4H PRN PRN Reason: Seizures Lorazepam (Ativan) 0.5 mg IVPUSH Q4H PRN; Protocol PRN Reason: Anxiety Magnesium Oxide (Magnesium Oxide) 400 mg PO BID [facility] Last Admin: 01/29/17 08:27 Dose: 400 mg Magnesium Sulfate (Pharmacy To Dose - Magnesium Replacement) 1 dose .XX ASDIRECTED [facility] Metoprolol Succinate (Toprol Xl) 25 mg PO DAILY [facility] Last Admin: 01/29/17 08:27 Dose: 25 mg Metoprolol Tartrate (Lopressor) 5 mg IVPUSH Q4H PRN PRN Reason: Tachycardia Mometasone Furoate/Formoterol Fumar (Dulera 200-5 Mcg) 2 puff IH BIDRT [facility] Last Admin: 01/29/17 09:18 Dose: 2 puff Morphine Sulfate (Morphine) 1 mg IVPUSH Q4H PRN PRN Reason: Shortness of Breath Last Admin: 01/29/17 04:40 Dose: 1 mg Morphine Sulfate (Ms Contin) 15 mg PO Q8H [facility] Last Admin: 01/29/17 14:16 Dose: 15 mg Admin: 01/29/17 07:58 Dose: Not Given Non-Formulary Medication (Lutein [Lutein]) 1 cap PO BID [facility] Ondansetron HCl (Zofran) 4 mg IV Q6H PRN PRN Reason: Nausea/Vomiting Last Admin: 01/29/17 10:57 Dose: 4 mg Oral Electrolytes (Thermotabs) 2 each PO TID [facility] Last Admin: 01/29/17 14:16 Dose: 2 each Admin: 01/29/17 11:01 Dose: 2 each Polyethylene Glycol (Miralax) 17 gm PO DAILY PRN PRN Reason: Constipation Potassium Chloride (Pharmacy To Dose - Potassium Replacement) 1 dose .XX ASDIRECTED [facility] Potassium Chloride (Klor-Con M20) 20 meq PO DAILY [facility] Last Admin: 01/29/17 08:27 Dose: 20 meq Senna/Docusate Sodium (Senna Plus) 1 tab PO BID PRN PRN Reason: Constipation Sertraline HCl (Zoloft) 25 mg PO DAILY [facility] Last Admin: 01/29/17 08:27 Dose: 25 mg Sodium Chloride (Saline Flush) 10 ml FLUSH ASDIRECTED PRN PRN Reason: Keep Vein Open Last Admin: 01/29/17 02:24 Dose: 10 ml Temazepam (Restoril) 7.5 mg PO BEDTIME PRN PRN Reason: Sleep Assessment/Plan Comment:: Assessment: Acute: Acute on Chronic Hypoxic Respiratory Failure - On 3L NC baseline - 5L on presentation to ED - Titrate to keep O2 sat > 90-92% Acute Exacerbation of COPD - Has Advanced Emphysema if not End Stage - Failed Outpatient and Inpatient Treatments - He was discharged 2 days ago - He follows Dr. Emmanuel for pulmonary care - IV Steroids, Scheduled and PRN Bronchodilators, IV Morphine, IV/PO Magnesium, IV Azithromycin, Supplemental O2 - FV Q2 awake - Decongestant/Expectorant - PRN IVP Morphine for Dyspnea Hyponatremia - Na 118 (124 last admission) - Likely from Pulmonary Insufficiency and + Chlorthalidone - Due to low KEYSHA level (converts AI to AII) --> low levels of Aldosterone - Will hold Chlorthalidone as med is known to cause low Cl and Na - Salt Tablet 2 1tab po TID - Monitor levels Hypomagensemia - M 1.6 - Pharmacy to replete and monitor Chronic: Impaired Vision HTN GERD Questionable Crohn's Disease Anxiety Depression Plan: Admit to inpatient with Pulse-Ox Routine AM Labs Resume Home Medications PRN Medications PT/OT/RT consult SW/CM for d/c planning Additional orders as above Code status: DNR/DNI
[2017-01-29] MEDS ORDERED: Azithromycin 250 MG in Sodium Chloride 0.9% 250 ML IV SCH (21:00)
[2017-01-29] MEDS: Latanoprost 0.005% Ophth Soln 2.5 ML Bottle EYEBOTH SCH (21:05)
[2017-01-29] MEDS: Temazepam 7.5 MG Cap PO PRN (21:09)
[2017-01-29] MEDS ORDERED: Azithromycin 500 MG in Sodium Chloride 0.9% 250 ML IV SCH (21:45)
[2017-01-29] MEDS ORDERED: Azithromycin 500 MG in Sodium Chloride 0.9% 250 ML IV ONE (22:30)
[2017-01-30] MEDS ORDERED: HYDROmorphone 0.5 MG/0.5 ML Syringe IVPUSH PRN (07:48)
[2017-01-30] MEDS: Morphine 15 MG Tab.ER PO SCH (08:17)
[2017-01-30] MEDS: Docusate Sodium 100 MG Cap PO SCH ×2 (08:42→21:42)
[2017-01-30] MEDS: Potassium Chloride/Sodium Chloride Tab PO SCH ×3 (08:42→21:42)
[2017-01-30] MEDS: Sertraline 25 MG Tab PO SCH (08:42)
[2017-01-30] MEDS: Magnesium Oxide 400 MG Tab PO SCH ×2 (08:42→21:43)
[2017-01-30] MEDS: Potassium Chloride 20 MEQ Tab.ER PO SCH (08:43)
[2017-01-30] MEDS: Morphine 15 MG Tab PO SCH ×2 (08:43→15:37)
[2017-01-30] MEDS: Metoprolol Succinate 25 MG Tab.ER PO SCH (08:43)
[2017-01-30] MEDS: guaiFENesin 600 MG Tab.ER PO SCH ×2 (08:43→21:42)
[2017-01-30] MEDS: Albuterol/Ipratropium 3.0-0.5 MG/3 ML Neb Soln NEB PRN ×3 (09:35→21:13)
[2017-01-30] MEDS: Formoterol/Mometasone 200-5 MCG 8.8 GM Inhaler IH SCH ×2 (09:35→21:13)
[2017-01-30] MEDS ORDERED: LORazepam 1 MG Tab PO PRN (13:02)
[2017-01-30] MEDS ORDERED: Calcium Carbonate 500 MG Tab.Chew PO PRN (13:04)
--- NOTE | 2017-01-30 13:11 | PCM.PN ---
- General Info Date of Service: 01/30/17 Admission Dx/Problem (Free Text): Admission Diagnosis/Problem Admission Diagnosis/Problem Hyponatremia Gerald is seen this morning on group rounding. He is feeling better, still anxious and SOB at times, worse with exertion. Family is present in room. Review labs and medications. Functional Status: Reports: Pain Controlled, Tolerating Diet, Ambulating, Urinating. Denies: New Symptoms - Review of Systems General: Reports: No Symptoms, Weakness (improved) HEENT: Reports: No Symptoms Pulmonary: Reports: Shortness of Breath (chronic- improved since admit), Cough, Sputum (minimal) Cardiovascular: Denies: Chest Pain, Palpitations Gastrointestinal: Reports: No Symptoms Genitourinary: Reports: No Symptoms Neurological: Reports: No Symptoms Psychiatric: Reports: Anxiety - Patient Data Vitals - Most Recent: Last Vital Signs Temp 99.1 F 01/30/17 12:01 Pulse 75 01/30/17 12:01 Resp 14 01/30/17 12:01 BP 117/66 01/30/17 12:01 Pulse Ox 99 01/30/17 12:01 Weight - Most Recent: 159 lb 4.8 oz I&O - Last 24 Hours: Intake & Output 01/29/17 01/30/17 01/30/17 22:59 06:59 14:59 Intake Total 500 680 300 Output Total 1900 2500 Balance -1400 -1820 300 Lab Results Last 24 Hours: Laboratory Results - last 24 hr 01/30/17 01/30/17 01/30/17 Range/Units 05:42 05:42 05:42 WBC 13.41 H (4.23-9.07) K/mm3 RBC 4.07 L (4.63-6.08) M/mm3 Hgb 11.7 L (13.7-17.5) gm/L Hct 34.7 L (40.1-51.0) % MCV 85.3 (79.0-92.2) fl MCH 28.7 (25.7-32.2) pg MCHC 33.7 (32.2-35.5) g/dl RDW Std Deviation 44.6 H (35.1-43.9) fL Plt Count 326 (163-337) K/mm3 MPV 8.7 L (9.4-12.3) fl Neut % (Auto) 82.4 H (34.0-67.9) % Lymph % (Auto) 8.4 L (21.8-53.1) % [place] % (Auto) 8.1 (5.3-12.2) % Eos % (Auto) 0.3 L (0.8-7.0) Baso % (Auto) 0.1 (0.1-1.2) % Neut # (Auto) 11.05 H (1.78-5.38) K/mm3 Lymph # (Auto) 1.13 L (1.32-3.57) K/mm3 [place] # (Auto) 1.09 H (0.30-0.82) K/mm3 Eos # (Auto) 0.04 (0.04-0.54) K/mm3 Baso # (Auto) 0.01 (0.01-0.08) K/mm3 Manual Slide Review Abnormal smear Sodium 127 L (136-145) mEq/L Potassium 4.2 (3.5-5.1) mEq/L Chloride 91 L (98-107) mEq/L Carbon Dioxide 31 (21-32) mEq/L Anion Gap 9.2 (5-15) BUN 19 H (7-18) mg/dL Creatinine 1.0 (0.7-1.3) mg/dL Est Cr Clr Drug Dosing 53.17 mL/min Estimated GFR (MDRD) > 60 (>60) mL/min BUN/Creatinine Ratio 19.0 H (14-18) Glucose 86 (83-115) mg/dL Calcium 8.4 L (8.5-10.1) mg/dL Magnesium 2.2 (1.8-2.4) mg/dl Troponin I 0.054 (0.00-0.056) ng/mL Med Orders - Current: Current Medications Acetaminophen (Tylenol) 650 mg PO Q4H PRN PRN Reason: Pain (Mild 1-3)/fever Hydrocodone Bitart/Acetaminophen ([place] 325-5 Mg) 1 tab PO Q4H PRN PRN Reason: Pain (moderate 4-6) Albuterol/Ipratropium (Duoneb 3.0-0.5 Mg/3 Ml) 3 ml NEB Q2H PRN PRN Reason: Shortness of Breath Last Admin: 01/30/17 09:35 Dose: 3 ml Bisacodyl (Dulcolax) 5 mg PO DAILY PRN PRN Reason: Constipation Calcium Carbonate/Glycine (Tums) 500 mg PO Q2HR PRN PRN Reason: Indigestion Docusate Sodium (Colace) 100 mg PO BID [facility] Last Admin: 01/30/17 08:42 Dose: 100 mg Guaifenesin (Mucinex) 600 mg PO BID [facility] Last Admin: 01/30/17 08:43 Dose: 600 mg Hydralazine HCl (Apresoline) 20 mg IVPUSH Q4H PRN PRN Reason: Hypertension Hydromorphone HCl (Dilaudid) 0.25 mg IVPUSH Q2H PRN PRN Reason: Pain (severe 7-10) Azithromycin 250 mg/ Sodium (Chloride) 250 mls @ 250 mls/hr IV Q24H [facility] Latanoprost (Xalatan 0.005% Ophth Soln) 0 ml EYEBOTH BEDTIME [facility] Last Admin: 01/29/17 21:05 Dose: 1 drop Lorazepam (Ativan) 1 mg PO Q4H PRN PRN Reason: anxiety/SOB Magnesium Oxide (Magnesium Oxide) 400 mg PO BID [facility] Last Admin: 01/30/17 08:42 Dose: 400 mg Magnesium Sulfate (Pharmacy To Dose - Magnesium Replacement) 1 dose .XX ASDIRECTED [facility] Metoprolol Succinate (Toprol Xl) 25 mg PO DAILY [facility] Last Admin: 01/30/17 08:43 Dose: 25 mg Metoprolol Tartrate (Lopressor) 5 mg IVPUSH Q4H PRN PRN Reason: Tachycardia Mometasone Furoate/Formoterol Fumar (Dulera 200-5 Mcg) 2 puff IH BIDRT [facility] Last Admin: 01/30/17 09:35 Dose: 2 puff Morphine Sulfate (Morphine) 1 mg IVPUSH Q4H PRN PRN Reason: Shortness of Breath Last Admin: 01/29/17 04:40 Dose: 1 mg Morphine Sulfate (Morphine) 15 mg PO Q8H [facility] Last Admin: 01/30/17 08:43 Dose: 15 mg Ondansetron HCl (Zofran) 4 mg IV Q6H PRN PRN Reason: Nausea/Vomiting Last Admin: 01/29/17 21:35 Dose: 4 mg Oral Electrolytes (Thermotabs) 2 each PO TID [facility] Last Admin: 01/30/17 08:42 Dose: 2 each Pantoprazole Sodium (Protonix) 40 mg PO BID [facility] Polyethylene Glycol (Miralax) 17 gm PO DAILY PRN PRN Reason: Constipation Potassium Chloride (Pharmacy To Dose - Potassium Replacement) 1 dose .XX ASDIRECTED [facility] Potassium Chloride (Klor-Con M20) 20 meq PO DAILY [facility] Last Admin: 01/30/17 08:43 Dose: 20 meq Prednisone (Prednisone) 10 mg PO DAILY [facility] Senna/Docusate Sodium (Senna Plus) 1 tab PO BID PRN PRN Reason: Constipation Sertraline HCl (Zoloft) 25 mg PO DAILY [facility] Last Admin: 01/30/17 08:42 Dose: 25 mg Sodium Chloride (Saline Flush) 10 ml FLUSH ASDIRECTED PRN PRN Reason: Keep Vein Open Last Admin: 01/29/17 02:24 Dose: 10 ml Temazepam (Restoril) 7.5 mg PO BEDTIME PRN PRN Reason: Sleep Last Admin: 01/29/17 21:09 Dose: 7.5 mg Discontinued Medications Acetaminophen (Tylenol) 650 mg PO Q4H PRN PRN Reason: Pain Al Hydroxide/Mg Hydroxide (Mag-Al Plus) 30 ml PO ONETIME ONE Stop: 01/29/17 04:13 Last Admin: 01/29/17 04:20 Dose: 30 ml Albuterol/Ipratropium (Duoneb 3.0-0.5 Mg/3 Ml) Confirm Administered Dose 3 ml .ROUTE .STK-MED ONE Stop: 01/29/17 02:20 Last Admin: 01/29/17 02:21 Dose: 3 ml Albuterol/Ipratropium (Duoneb 3.0-0.5 Mg/3 Ml) 3 ml NEB ONETIME ONE Stop: 01/29/17 02:20 Last Admin: 01/29/17 02:21 Dose: Not Given Docusate Sodium (Colace) 100 mg PO BID PRN PRN Reason: Constipation Hydromorphone HCl (Dilaudid) 0.25 mg IVPUSH Q2H PRN PRN Reason: Pain (severe 7-10) Promethazine HCl 12.5 mg/ (Sodium Chloride) 50.5 mls @ 100 mls/hr IV Q6H PRN PRN Reason: Nausea/Vomiting Magnesium Sulfate 2 gm/ Premix 50 mls @ 50 mls/hr IV ONETIME ONE Stop: 01/29/17 14:59 Last Admin: 01/29/17 14:15 Dose: 50 mls/hr Azithromycin 250 mg/ Sodium (Chloride) 250 mls @ 250 mls/hr IV Q24H [facility] Last Admin: 01/29/17 22:59 Dose: Not Given Azithromycin 500 mg/ Sodium (Chloride) 250 mls @ 250 mls/hr IV Q24H [facility] Last Admin: 01/29/17 22:59 Dose: Not Given Azithromycin 500 mg/ Sodium (Chloride) 250 mls @ 250 mls/hr IV ONETIME ONE Stop: 01/29/17 23:29 Last Admin: 01/29/17 22:27 Dose: 250 mls/hr Lorazepam (Ativan) 0.5 mg IVPUSH ONETIME ONE Stop: 01/29/17 02:25 Last Admin: 01/29/17 02:28 Dose: 0.5 mg Lorazepam (Ativan) 0.5 mg IVPUSH ONETIME PRN PRN Reason: Anxiety Last Admin: 01/29/17 05:18 Dose: 0.5 mg Lorazepam (Ativan) 2 mg IVPUSH Q4H PRN PRN Reason: Seizures Lorazepam (Ativan) 0.5 mg IVPUSH Q4H PRN; Protocol PRN Reason: Anxiety Lorazepam (Ativan) 0.5 mg IVPUSH Q4H PRN PRN Reason: Anxiety Methylprednisolone Sodium Succinate (Solu-Medrol) 125 mg IVPUSH ONETIME ONE Stop: 01/29/17 02:20 Last Admin: 01/29/17 02:24 Dose: 125 mg Morphine Sulfate (Ms Contin) 15 mg PO Q8H [facility] Last Admin: 01/30/17 08:17 Dose: Not Given - Exam Quality Assessment: Supplemental Oxygen, DVT Prophylaxis General: Alert, Oriented, Cooperative, No Acute Distress HEENT: Pupils Equal, Pupils Reactive, Mucous Membr. Moist/[place] Neck: Supple Lungs: Normal Respiratory Effort, Decreased Breath Sounds (throughout), Wheezing (expiratory) Cardiovascular: Regular Rate, Regular Rhythm GI/Abdominal Exam: Normal Bowel Sounds, Soft, Non-Tender (Male) Exam: Deferred Extremities: Normal Inspection, No Pedal Edema Neurological: No New Focal Deficit Psy/Mental Status: Alert, Normal Affect, Normal Mood - Problem List Review Problem List Initiated/Reviewed/Updated: Yes - My Orders Last 24 Hours: My Active Orders 01/30/17 12:50 Pantoprazole [ProTONIX] 40 mg PO BID 01/30/17 13:00 predniSONE 10 mg PO DAILY 01/30/17 13:02 LORazepam [Ativan] 1 mg PO Q4H PRN 01/30/17 13:04 Calcium Carbonate [Tums] 500 mg PO Q2HR PRN - Plan Plan:: Assessment: Acute: Acute on Chronic Hypoxic Respiratory Failure--COPD - On 3L NC baseline; at 2L/NC now - 5L on presentation to ED - Titrate to keep O2 sat > 90-92% Acute Exacerbation of COPD - Has Advanced Emphysema if not End Stage - Failed Outpatient and Inpatient Treatments - He was discharged 2 days ago - He follows Dr. Emmanuel for pulmonary care - IV Steroids, Scheduled and PRN Bronchodilators, IV Morphine, IV/PO Magnesium, IV Azithromycin, Supplemental O2, ativan PRN - FV/IS Q2 awake - Decongestant/Expectorant - PRN IVP Morphine for Dyspnea Hyponatremia - Na 118 (124 last admission)-->127 - Likely from Pulmonary Insufficiency and + Chlorthalidone - Due to low KEYSHA level (converts AI to AII) --> low levels of Aldosterone - Will hold Chlorthalidone as med is known to cause low Cl and Na - Salt Tablet 2 1tab po TID - Monitor levels Hypomagensemia - M 1.6-->2.2 - Pharmacy to replete and monitor Elevated troponin -initial 0.057, recheck 0.054- likely demand due to chronic hypoxia/acute on chronic resp failure Chronic: Impaired Vision HTN GERD with Haddad's esophagus- PPI BID Questionable Crohn's Disease Anxiety Depression Plan: Admit to inpatient with Pulse-Ox Routine AM Labs Resume Home Medications PRN Medications PT/OT/RT consult SW/CM for d/c planning--Arrangements had been made at prior admission for [facility] placement today (Monday), bed still available, will have therapies assess. SW to talk with family for placement- [facility]. Additional orders as above Code status: DNR/DNI
[2017-01-30] MEDS: Pantoprazole 40 MG Tab.CR PO SCH ×2 (14:23→21:42)
[2017-01-30] MEDS: predniSONE 10 MG Tab PO SCH (14:23)
[2017-01-30] MEDS: Latanoprost 0.005% Ophth Soln 2.5 ML Bottle EYEBOTH SCH (21:42)
[2017-01-30] MEDS: Temazepam 7.5 MG Cap PO PRN (21:43)
[2017-01-30] MEDS: Azithromycin 250 MG in Sodium Chloride 0.9% 250 ML IV SCH (21:45)
[2017-01-31] MEDS ORDERED: Azithromycin 250 MG in Sodium Chloride 0.9% 250 ML IV SCH ×4 (00:07→23:00)
[2017-01-31] MEDS: Morphine 15 MG Tab PO SCH ×3 (01:29→15:57)
[2017-01-31] MEDS: Formoterol/Mometasone 200-5 MCG 8.8 GM Inhaler IH SCH ×2 (06:15→21:07)
[2017-01-31] MEDS: Albuterol/Ipratropium 3.0-0.5 MG/3 ML Neb Soln NEB PRN ×4 (06:15→21:07)
--- NOTE | 2017-01-31 06:26 | PCM.PN ---
- General Info Date of Service: 01/31/17 Admission Dx/Problem (Free Text): Admission Diagnosis/Problem Admission Diagnosis/Problem Hyponatremia Doing better; stable overnight. Continues to have coughing fits and "burning" sensation in his throat. 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 States the burning seems to be worse the past few days. He has been on PO steroids recently and throughout over the course of the past 6 months. Functional Status: Reports: Pain Controlled, Ambulating, Urinating - Review of Systems General: Reports: Weakness. Denies: Fever HEENT: Reports: No Symptoms Pulmonary: Reports: Shortness of Breath (chronic; no worse than usual) Cardiovascular: Reports: No Symptoms, Dyspnea on Exertion (chronic- baseline). Denies: Chest Pain, Palpitations Gastrointestinal: Reports: Other (heartburn, "burning" sensation in his throat) Genitourinary: Reports: No Symptoms Musculoskeletal: Reports: No Symptoms Neurological: Reports: No Symptoms Psychiatric: Reports: No Symptoms - Patient Data Vitals - Most Recent: Last Vital Signs Temp 97.9 F 01/31/17 03:31 Pulse 71 01/31/17 03:31 Resp 16 01/31/17 03:31 BP 102/73 01/31/17 03:31 Pulse Ox 96 01/31/17 03:31 Weight - Most Recent: 157 lb 12.8 oz I&O - Last 24 Hours: Intake & Output 01/30/17 01/30/17 01/31/17 14:59 22:59 06:59 Intake Total 540 880 800 Output Total 1900 1000 Balance 540 -1020 -200 Lab Results Last 24 Hours: Laboratory Results - last 24 hr 01/30/17 01/30/17 01/30/17 Range/Units 05:42 05:42 05:42 WBC 13.41 H (4.23-9.07) K/mm3 RBC 4.07 L (4.63-6.08) M/mm3 Hgb 11.7 L (13.7-17.5) gm/L Hct 34.7 L (40.1-51.0) % MCV 85.3 (79.0-92.2) fl MCH 28.7 (25.7-32.2) pg MCHC 33.7 (32.2-35.5) g/dl RDW Std Deviation 44.6 H (35.1-43.9) fL Plt Count 326 (163-337) K/mm3 MPV 8.7 L (9.4-12.3) fl Neut % (Auto) 82.4 H (34.0-67.9) % Lymph % (Auto) 8.4 L (21.8-53.1) % Phillips % (Auto) 8.1 (5.3-12.2) % Eos % (Auto) 0.3 L (0.8-7.0) Baso % (Auto) 0.1 (0.1-1.2) % Neut # (Auto) 11.05 H (1.78-5.38) K/mm3 Lymph # (Auto) 1.13 L (1.32-3.57) K/mm3 Phillips # (Auto) 1.09 H (0.30-0.82) K/mm3 Eos # (Auto) 0.04 (0.04-0.54) K/mm3 Baso # (Auto) 0.01 (0.01-0.08) K/mm3 Manual Slide Review Abnormal smear Sodium 127 L (136-145) mEq/L Potassium 4.2 (3.5-5.1) mEq/L Chloride 91 L (98-107) mEq/L Carbon Dioxide 31 (21-32) mEq/L Anion Gap 9.2 (5-15) BUN 19 H (7-18) mg/dL Creatinine 1.0 (0.7-1.3) mg/dL Est Cr Clr Drug Dosing 53.17 mL/min Estimated GFR (MDRD) > 60 (>60) mL/min BUN/Creatinine Ratio 19.0 H (14-18) Glucose 86 (83-115) mg/dL Calcium 8.4 L (8.5-10.1) mg/dL Magnesium 2.2 (1.8-2.4) mg/dl Troponin I 0.054 (0.00-0.056) ng/mL Med Orders - Current: Current Medications Acetaminophen (Tylenol) 650 mg PO Q4H PRN PRN Reason: Pain (Mild 1-3)/fever Hydrocodone Bitart/Acetaminophen ([place] 325-5 Mg) 1 tab PO Q4H PRN PRN Reason: Pain (moderate 4-6) Albuterol/Ipratropium (Duoneb 3.0-0.5 Mg/3 Ml) 3 ml NEB Q2H PRN PRN Reason: Shortness of Breath Last Admin: 01/31/17 06:15 Dose: 3 ml Bisacodyl (Dulcolax) 5 mg PO DAILY PRN PRN Reason: Constipation Calcium Carbonate/Glycine (Tums) 500 mg PO Q2H PRN PRN Reason: Indigestion Docusate Sodium (Colace) 100 mg PO BID [facility] Last Admin: 01/30/17 21:42 Dose: 100 mg Guaifenesin (Mucinex) 600 mg PO BID [facility] Last Admin: 01/30/17 21:42 Dose: 600 mg Hydralazine HCl (Apresoline) 20 mg IVPUSH Q4H PRN PRN Reason: Hypertension Hydromorphone HCl (Dilaudid) 0.25 mg IVPUSH Q2H PRN PRN Reason: Pain (severe 7-10) Azithromycin 250 mg/ Sodium (Chloride) 250 mls @ 250 mls/hr IV Q24H [facility] Last Admin: 01/31/17 00:14 Dose: Not Given Latanoprost (Xalatan 0.005% Ophth Soln) 0 ml EYEBOTH BEDTIME [facility] Last Admin: 01/30/17 21:42 Dose: 1 drop Lorazepam (Ativan) 1 mg PO Q4H PRN PRN Reason: anxiety/SOB Last Admin: 01/30/17 21:43 Dose: 1 mg Magnesium Oxide (Magnesium Oxide) 400 mg PO BID [facility] Last Admin: 01/30/17 21:43 Dose: 400 mg Magnesium Sulfate (Pharmacy To Dose - Magnesium Replacement) 1 dose .XX ASDIRECTED [facility] Metoprolol Succinate (Toprol Xl) 25 mg PO DAILY [facility] Last Admin: 01/30/17 08:43 Dose: 25 mg Metoprolol Tartrate (Lopressor) 5 mg IVPUSH Q4H PRN PRN Reason: Tachycardia Mometasone Furoate/Formoterol Fumar (Dulera 200-5 Mcg) 2 puff IH BIDRT [facility] Last Admin: 01/31/17 06:15 Dose: 2 puff Morphine Sulfate (Morphine) 1 mg IVPUSH Q4H PRN PRN Reason: Shortness of Breath Last Admin: 01/29/17 04:40 Dose: 1 mg Morphine Sulfate (Morphine) 15 mg PO Q8H [facility] Last Admin: 01/31/17 01:29 Dose: 15 mg Ondansetron HCl (Zofran) 4 mg IV Q6H PRN PRN Reason: Nausea/Vomiting Last Admin: 01/29/17 21:35 Dose: 4 mg Oral Electrolytes (Thermotabs) 2 each PO TID [facility] Last Admin: 01/30/17 21:42 Dose: 2 each Pantoprazole Sodium (Protonix) 40 mg PO BID [facility] Last Admin: 01/30/17 21:42 Dose: 40 mg Polyethylene Glycol (Miralax) 17 gm PO DAILY PRN PRN Reason: Constipation Potassium Chloride (Pharmacy To Dose - Potassium Replacement) 1 dose .XX ASDIRECTED [facility] Potassium Chloride (Klor-Con M20) 20 meq PO DAILY [facility] Last Admin: 01/30/17 08:43 Dose: 20 meq Prednisone (Prednisone) 30 mg PO DAILY [facility] Stop: 02/01/17 09:01 Last Admin: 01/30/17 14:23 Dose: 30 mg Prednisone (Prednisone) 20 mg PO DAILY [facility] Stop: 02/04/17 09:01 Prednisone (Prednisone) 10 mg PO DAILY [facility] Stop: 02/07/17 09:01 Senna/Docusate Sodium (Senna Plus) 1 tab PO BID PRN PRN Reason: Constipation Sertraline HCl (Zoloft) 25 mg PO DAILY [facility] Last Admin: 01/30/17 08:42 Dose: 25 mg Sodium Chloride (Saline Flush) 10 ml FLUSH ASDIRECTED PRN PRN Reason: Keep Vein Open Last Admin: 01/29/17 02:24 Dose: 10 ml Temazepam (Restoril) 7.5 mg PO BEDTIME PRN PRN Reason: Sleep Last Admin: 01/30/17 21:43 Dose: 7.5 mg Discontinued Medications Acetaminophen (Tylenol) 650 mg PO Q4H PRN PRN Reason: Pain Al Hydroxide/Mg Hydroxide (Mag-Al Plus) 30 ml PO ONETIME ONE Stop: 01/29/17 04:13 Last Admin: 01/29/17 04:20 Dose: 30 ml Albuterol/Ipratropium (Duoneb 3.0-0.5 Mg/3 Ml) Confirm Administered Dose 3 ml .ROUTE .STK-MED ONE Stop: 01/29/17 02:20 Last Admin: 01/29/17 02:21 Dose: 3 ml Albuterol/Ipratropium (Duoneb 3.0-0.5 Mg/3 Ml) 3 ml NEB ONETIME ONE Stop: 01/29/17 02:20 Last Admin: 01/29/17 02:21 Dose: Not Given Docusate Sodium (Colace) 100 mg PO BID PRN PRN Reason: Constipation Hydromorphone HCl (Dilaudid) 0.25 mg IVPUSH Q2H PRN PRN Reason: Pain (severe 7-10) Promethazine HCl 12.5 mg/ (Sodium Chloride) 50.5 mls @ 100 mls/hr IV Q6H PRN PRN Reason: Nausea/Vomiting Magnesium Sulfate 2 gm/ Premix 50 mls @ 50 mls/hr IV ONETIME ONE Stop: 01/29/17 14:59 Last Admin: 01/29/17 14:15 Dose: 50 mls/hr Azithromycin 250 mg/ Sodium (Chloride) 250 mls @ 250 mls/hr IV Q24H [facility] Last Admin: 01/29/17 22:59 Dose: Not Given Azithromycin 500 mg/ Sodium (Chloride) 250 mls @ 250 mls/hr IV Q24H [facility] Last Admin: 01/29/17 22:59 Dose: Not Given Azithromycin 500 mg/ Sodium (Chloride) 250 mls @ 250 mls/hr IV ONETIME ONE Stop: 01/29/17 23:29 Last Admin: 01/29/17 22:27 Dose: 250 mls/hr Azithromycin 250 mg/ Sodium (Chloride) 250 mls @ 250 mls/hr IV Q24H [facility] Last Admin: 01/30/17 21:45 Dose: 250 mls/hr Lorazepam (Ativan) 0.5 mg IVPUSH ONETIME ONE Stop: 01/29/17 02:25 Last Admin: 01/29/17 02:28 Dose: 0.5 mg Lorazepam (Ativan) 0.5 mg IVPUSH ONETIME PRN PRN Reason: Anxiety Last Admin: 01/29/17 05:18 Dose: 0.5 mg Lorazepam (Ativan) 2 mg IVPUSH Q4H PRN PRN Reason: Seizures Lorazepam (Ativan) 0.5 mg IVPUSH Q4H PRN; Protocol PRN Reason: Anxiety Lorazepam (Ativan) 0.5 mg IVPUSH Q4H PRN PRN Reason: Anxiety Methylprednisolone Sodium Succinate (Solu-Medrol) 125 mg IVPUSH ONETIME ONE Stop: 01/29/17 02:20 Last Admin: 01/29/17 02:24 Dose: 125 mg Morphine Sulfate (Ms Contin) 15 mg PO Q8H [facility] Last Admin: 01/30/17 08:17 Dose: Not Given - Exam Quality Assessment: Supplemental Oxygen, DVT Prophylaxis General: Alert, Oriented, Cooperative, No Acute Distress HEENT: Pupils Equal, Pupils Reactive, Mucous Membr. Moist/Leary, Other (OP is with no exudates, chronic erythema noted but no acute changes or concerns noted. ) Neck: Supple Lungs: Normal Respiratory Effort, Decreased Breath Sounds (throughout), Wheezing (exp- scattered) Cardiovascular: Regular Rate, Regular Rhythm GI/Abdominal Exam: Normal Bowel Sounds, Soft, Non-Tender (Male) Exam: Deferred Extremities: Normal Inspection, No Pedal Edema Skin: Warm, Dry, Intact Neurological: No New Focal Deficit Psy/Mental Status: Alert, Normal Affect, Normal Mood - Problem List Review Problem List Initiated/Reviewed/Updated: Yes - My Orders Last 24 Hours: My Active Orders 01/30/17 12:50 Pantoprazole [ProTONIX] 40 mg PO BID 01/30/17 13:00 predniSONE 30 mg PO DAILY 01/30/17 13:02 LORazepam [Ativan] 1 mg PO Q4H PRN 01/30/17 13:04 Calcium Carbonate [Tums] 500 mg PO Q2H PRN 02/01/17 05:11 CBC WITH AUTO DIFF [HEME] AM 02/02/17 09:00 predniSONE 20 mg PO DAILY 02/05/17 09:00 predniSONE 10 mg PO DAILY - Plan Plan:: Assessment: Acute: Acute on Chronic Hypoxic Respiratory Failure--COPD - On 3L NC baseline; at 2L/NC now - 5L on presentation to ED - Titrate to keep O2 sat > 90-92% Acute Exacerbation of COPD - Has Advanced Emphysema if not End Stage - Failed Outpatient and Inpatient Treatments - He was discharged 2 days prior to this admission - He follows Dr. Emmanuel for pulmonary care - IV Steroids, Scheduled and PRN Bronchodilators, IV Morphine, IV/PO Magnesium, IV Azithromycin, Supplemental O2, ativan PRN - FV/IS Q2 awake - Decongestant/Expectorant - PRN IVP Morphine for Dyspnea - Feels cough is worse- will repeat CXR today----is unchanged. I feel this is related to worsening/increased GERD symptoms. Increased mucinex to 1200mg BID and will add carafate as below. Hyponatremia - Na 118 (124 last admission)-->127-->130 - Likely from Pulmonary Insufficiency and + Chlorthalidone - Due to low KEYSHA level (converts AI to AII) --> low levels of Aldosterone - Will hold Chlorthalidone as med is known to cause low Cl and Na - Salt Tablet 2 1tab po TID - Monitor levels Hypomagensemia - M 1.6-->2.2 - Pharmacy to replete and monitor Elevated troponin -initial 0.057, recheck 0.054- likely demand due to chronic hypoxia/acute on chronic resp failure GERD with hx of barretts esophagus -States last EGD [address] Lynne, GI in [place] -On PPI BID -Will add carafate susp QID Chronic: Impaired Vision HTN GERD with Haddad's esophagus- PPI BID Questionable Crohn's Disease Anxiety Depression Plan: Admit to inpatient with Pulse-Ox Routine AM Labs Resume Home Medications PRN Medications PT/OT/RT consult SW/CM for d/c planning--Arrangements had been made at prior admission for [facility] placement today (Monday), bed still available, will have therapies assess. SW to talk with family for placement- [facility] vs SNF. Additional orders as above Code status: DNR/DNI Will plan for discharge tomorrow to [place] if stable and if continues to do well.
[2017-01-31] MEDS ORDERED: Sodium Chloride 0.9% 1,000 ML ONE (08:31)
[2017-01-31] MEDS ORDERED: guaiFENesin 600 MG Tab.ER PO ONE (09:01)
[2017-01-31] MEDS: predniSONE 10 MG Tab PO SCH (09:16)
[2017-01-31] MEDS: Potassium Chloride/Sodium Chloride Tab PO SCH ×3 (09:16→22:15)
[2017-01-31] MEDS: Metoprolol Succinate 25 MG Tab.ER PO SCH (09:16)
[2017-01-31] MEDS: Docusate Sodium 100 MG Cap PO SCH ×2 (09:19→22:15)
[2017-01-31] MEDS: Sertraline 25 MG Tab PO SCH (09:19)
[2017-01-31] MEDS: Potassium Chloride 20 MEQ Tab.ER PO SCH (09:19)
[2017-01-31] MEDS: Magnesium Oxide 400 MG Tab PO SCH ×2 (09:19→22:16)
[2017-01-31] MEDS: Pantoprazole 40 MG Tab.CR PO SCH ×2 (09:20→22:16)
[2017-01-31] MEDS: guaiFENesin 600 MG Tab.ER PO SCH ×2 (10:14→22:16)
--- NOTE | 2017-01-31 10:46 | CR ---
Chest: Two views of the chest were obtained. Comparison: Previous chest x-ray of 01/29/17. Heart size and mediastinum are normal. Vague nodular density is seen within the left upper chest as described on previous chest x-ray. Central lung markings are increased which remain stable. Lungs are hyperinflated compatible with emphysematous change. Bony structures appear within normal limits for the patient's age. Impression: 1. Vague nodular density within the left upper chest as described on previous chest x-ray. 2. Emphysematous change and other stable findings as noted above. Nothing acute is appreciated. Diagnostic code #9 Acetone Button Paster called report to Majo Valenzuela at 1036 on 01/31/17
[2017-01-31] MEDS: Sucralfate Suspension 1 GM/10 ML Cup PO SCH ×3 (11:59→22:15)
[2017-01-31] MEDS: Latanoprost 0.005% Ophth Soln 2.5 ML Bottle EYEBOTH SCH (22:15)
[2017-01-31] MEDS: Temazepam 7.5 MG Cap PO PRN (22:16)
[2017-01-31] MEDS: Azithromycin 250 MG in Sodium Chloride 0.9% 250 ML IV SCH (22:17)
[2017-02-01] MEDS: Morphine 15 MG Tab PO SCH ×2 (01:24→08:14)
[2017-02-01] MEDS: Albuterol/Ipratropium 3.0-0.5 MG/3 ML Neb Soln NEB PRN ×2 (05:52→09:35)
[2017-02-01] MEDS: Formoterol/Mometasone 200-5 MCG 8.8 GM Inhaler IH SCH (05:52)
[2017-02-01] MEDS: Sucralfate Suspension 1 GM/10 ML Cup PO SCH (06:11)
--- NOTE | 2017-02-01 07:11 | PCM.DCSUM1 ---
[id number] past medical hx/o COPD, Chronic Respiratory Failure on 3L NC, Anxiety and Depression who presents to ED with complaints of difficulty breathing and worsening shortness of breath. He was just discharged 2 days go with similar presenting illness. Patient reports associated non-productive cough. He denies any fever or chills. Patient is known to the hospitalist team, we took care of him on previous admission. His initial work up in ED shows a CBC remarkable for WBC of 12.70, RBC of 3.98, hemoglobin of 11.4, hematocrit of 33.7, neutrophils of 80.5%, lymphocytes of 8.3 % and monocyte count of 1.26. His chemistry is remarkable for sodium of 118 ( 124 on his previous admission), chloride of 86, BUN of 22, Ca of 8.2, Mg of 1.6 , total bilirubin of 1.3, AST of 56, ALT of 70, troponin of 0.057 and total protein of 5.9. His chest x-ray shows hyperinflated lungs. His EKG shows NSR. Patient is being admitted for acute on chronic respiratory failure and acute exacerbation of COPD. He is DNR/DNI. Repeat CXR's were negative for pneumonia; he was treated with IV steroids, tapered to PO prednisone and Zithromax for antiinflammatory effects. He continued to have low sodium, slowly improved with thermotabs. Magnesium was replaced. PT/OT worked with him. He had exacerbation of chronic GERD, treated with PPI BID and carafate with some improvements. Anxiety was increased and treated with ativan with relief. He is discharged to [facility] with follow up with Dr. Campo, PCP within one week of discharge. - Discharge Data Discharge Date: 02/01/17 (admit date 01/29/17) Discharge Disposition: DC/Tfer to Other Condition: Good - Patient Summary/Data Operative Procedure(s) Performed: None Complications: None Consults: Consultations 01/29/17 07:12 Consult to Case Management [CONS] Routine Consult to Insole Toe Snipping Machine Operator [CONS] Routine Consult to Spiritual Care [CONS] Routine OT Evaluation and Treatment [CONS] Routine PT Evaluation and Treatment [CONS] Routine Respiratory Care Assess and Treatment [CONS] Routine Labs Pending at D/C: None Recommended Follow-up Testing/Procedures: Follow up with PCP, Dr. Campo within 5 -7 days of discharge with labs prior- CBC, BMP and magnesium levels PT/OT to eval/tx Consider Pulmonary Rehab as outpatient- discuss with Dr. Campo at follow up Follow up with [facility] within one month Planned Operative Procedure(s) after DC: None Hospital Course: As above - Patient Instructions Diet: Usual Diet as Tolerated Activity: As Tolerated Driving: Do Not Drive Showering/Bathing: May Shower Notify Provider of: Fever, Increased Pain, Nausea and/or Vomiting (worsening of cough, shortness of breath, wheezing, acid reflux or burning) - Discharge Plan Prescriptions/Med Rec: Albuterol/Ipratropium [DuoNeb 3.0-0.5 MG/3 ML] 3 ml NEB Q6HRRT PRN #1 box PRN Reason: SOB/Wheezing LORazepam [Ativan] 0.5 - 1 mg PO Q4H PRN #40 tablet PRN Reason: anxiety/SOB Pantoprazole [ProTONIX] 40 mg PO BID #60 tab.cr Potassium Chloride/NaCl [Thermotabs] 2 each PO TID #45 tablet Sucralfate [Carafate] 1 gm PO QIDACANDBED #480 ml guaiFENesin [Mucinex] 1,200 mg PO BID #60 tab.er predniSONE 10 mg PO DAILY #30 tablet Home Medications: Home Meds Albuterol [Ventolin HFA] 2 - 4 inh INH Q4H PRN 11/25/16 [History] Budesonide/Formoterol [Symbicort 160-4.5 MCG] 2 inh INH BID 11/25/16 [History] Metoprolol Succinate 25 mg PO DAILY 11/25/16 [History] Latanoprost [Xalatan 0.005% Ophth Soln] 1 drop EYEBOTH BEDTIME 01/24/17 [History ] Lutein 1 cap PO BID 01/24/17 [History] Acetaminophen [Tylenol] 650 mg PO Q4H PRN #0 tablet 01/27/17 [Rx] Docusate Sodium [Colace] 100 mg PO BID #60 cap 01/27/17 [Rx] Magnesium Oxide 400 mg PO BID #60 tablet 01/27/17 [Rx] Polyethylene Glycol 3350 [MiraLAX] 17 gm PO DAILY PRN #0 packet 01/27/17 [Rx] Potassium Chloride [Klor-Con M20] 20 meq PO DAILY #30 tab.er 01/27/17 [Rx] Sertraline [Zoloft] 25 mg PO DAILY #30 tablet 01/27/17 [Rx] Albuterol/Ipratropium [DuoNeb 3.0-0.5 MG/3 ML] 3 ml NEB Q6HRRT PRN #1 box [Rx] LORazepam [Ativan] 0.5 - 1 mg PO Q4H PRN #40 tablet 02/01/17 [Rx] Morphine 15 mg PO Q8H tablet 02/01/17 [Rx] Pantoprazole [ProTONIX] 40 mg PO BID #60 tab.cr 02/01/17 [Rx] Potassium Chloride/NaCl [Thermotabs] 2 each PO TID #45 tablet 02/01/17 [Rx] Sucralfate [Carafate] 1 gm PO QIDACANDBED #480 ml 02/01/17 [Rx] guaiFENesin [Mucinex] 1,200 mg PO BID #60 tab.er 02/01/17 [Rx] predniSONE 10 mg PO DAILY #30 tablet 02/01/17 [Rx] Patient Handouts: Hyponatremia, Hypokalemia, Chronic Obstructive Pulmonary Disease, [id number], Haddad Esophagus Referrals: Ritchie Campo Jr, MD [Primary Care Provider] - 02/02/17 (Keep appointment with for this .) - Discharge Summary/Plan Comment DC Time >30 min.: Yes (40 min) - General Info Date of Service: 02/01/17 Admission Dx/Problem (Free Text: Admission Diagnosis/Problem Admission Diagnosis/Problem Hyponatremia Doing better; stable overnight. Plans for DC to [facility] today Functional Status: Reports: Pain Controlled, Tolerating Diet, Ambulating, Urinating, Incentive Spirometry. Denies: New Symptoms - Review of Systems General: Reports: No Symptoms HEENT: Reports: No Symptoms Pulmonary: Reports: Shortness of Breath (chronic), Cough (chronic) Cardiovascular: Reports: Dyspnea on Exertion (chroinic) Gastrointestinal: Reports: No Symptoms Genitourinary: Reports: No Symptoms Musculoskeletal: Reports: No Symptoms Skin: Reports: No Symptoms Neurological: Reports: No Symptoms Psychiatric: Reports: No Symptoms - Patient Data Vitals - Most Recent: Last Vital Signs Temp 97.3 F 02/01/17 04:17 Pulse 78 02/01/17 04:17 Resp 16 02/01/17 04:17 BP 105/62 02/01/17 04:17 Pulse Ox 92 L 02/01/17 06:47 Weight - Most Recent: 156 lb 14.4 oz I&O - Last 24 hours: Intake & Output 01/31/17 02/01/17 02/01/17 22:59 06:59 14:59 Intake Total 1060 700 Output Total 1600 950 Balance -540 -250 Lab Results - Last 24 hrs: Laboratory Results - last 24 hr 02/01/17 02/01/17 Range/Units 05:26 05:26 WBC 12.13 H (4.23-9.07) K/mm3 RBC 3.86 L (4.63-6.08) M/mm3 Hgb 11.2 L (13.7-17.5) gm/L Hct 34.1 L (40.1-51.0) % MCV 88.3 (79.0-92.2) fl MCH 29.0 (25.7-32.2) pg MCHC 32.8 (32.2-35.5) g/dl RDW Std Deviation 47.7 H (35.1-43.9) fL Plt Count 290 (163-337) K/mm3 MPV 8.6 L (9.4-12.3) fl Neut % (Auto) 76.2 H (34.0-67.9) % Lymph % (Auto) 11.8 L (21.8-53.1) % [place] % (Auto) 9.6 (5.3-12.2) % Eos % (Auto) 0.9 (0.8-7.0) Baso % (Auto) 0.1 (0.1-1.2) % Neut # (Auto) 9.25 H (1.78-5.38) K/mm3 Lymph # (Auto) 1.43 (1.32-3.57) K/mm3 [place] # (Auto) 1.16 H (0.30-0.82) K/mm3 Eos # (Auto) 0.11 (0.04-0.54) K/mm3 Baso # (Auto) 0.01 (0.01-0.08) K/mm3 Manual Slide Review Normal smear Sodium 132 L (136-145) mEq/L Potassium 4.5 (3.5-5.1) mEq/L Chloride 97 L (98-107) mEq/L Carbon Dioxide 33 H (21-32) mEq/L Anion Gap 6.5 (5-15) BUN 19 H (7-18) mg/dL Creatinine 1.0 (0.7-1.3) mg/dL Est Cr Clr Drug Dosing 53.17 mL/min Estimated GFR (MDRD) > 60 (>60) mL/min BUN/Creatinine Ratio 19.0 H (14-18) Glucose 96 (83-115) mg/dL Calcium 8.6 (8.5-10.1) mg/dL Magnesium 1.9 (1.8-2.4) mg/dl Med Orders - Current: Current Medications Acetaminophen (Tylenol) 650 mg PO Q4H PRN PRN Reason: Pain (Mild 1-3)/fever Hydrocodone Bitart/Acetaminophen ([place] 325-5 Mg) 1 tab PO Q4H PRN PRN Reason: Pain (moderate 4-6) Albuterol/Ipratropium (Duoneb 3.0-0.5 Mg/3 Ml) 3 ml NEB Q6HRRT PRN PRN Reason: SOB/wheezing Last Admin: 02/01/17 05:52 Dose: 3 ml Bisacodyl (Dulcolax) 5 mg PO DAILY PRN PRN Reason: Constipation Last Admin: 01/31/17 22:16 Dose: 5 mg Calcium Carbonate/Glycine (Tums) 500 mg PO Q2H PRN PRN Reason: Indigestion Docusate Sodium (Colace) 100 mg PO BID [facility] Last Admin: 01/31/17 22:15 Dose: 100 mg Guaifenesin (Mucinex) 1,200 mg PO BID [facility] Last Admin: 01/31/17 22:16 Dose: 1,200 mg Hydralazine HCl (Apresoline) 20 mg IVPUSH Q4H PRN PRN Reason: Hypertension Hydromorphone HCl (Dilaudid) 0.25 mg IVPUSH Q2H PRN PRN Reason: Pain (severe 7-10) Azithromycin 250 mg/ Sodium (Chloride) 250 mls @ 250 mls/hr IV Q24H [facility] Last Admin: 01/31/17 22:17 Dose: 250 mls/hr Latanoprost (Xalatan 0.005% Ophth Soln) 0 ml EYEBOTH BEDTIME [facility] Last Admin: 01/31/17 22:15 Dose: 1 drop Lorazepam (Ativan) 1 mg PO Q4H PRN PRN Reason: anxiety/SOB Last Admin: 01/30/17 21:43 Dose: 1 mg Magnesium Oxide (Magnesium Oxide) 400 mg PO BID [facility] Last Admin: 01/31/17 22:16 Dose: 400 mg Magnesium Sulfate (Pharmacy To Dose - Magnesium Replacement) 1 dose .XX ASDIRECTED [facility] Metoprolol Succinate (Toprol Xl) 25 mg PO DAILY [facility] Last Admin: 01/31/17 09:16 Dose: 25 mg Metoprolol Tartrate (Lopressor) 5 mg IVPUSH Q4H PRN PRN Reason: Tachycardia Mometasone Furoate/Formoterol Fumar (Dulera 200-5 Mcg) 2 puff IH BIDRT [facility] Last Admin: 02/01/17 05:52 Dose: 2 puff Morphine Sulfate (Morphine) 1 mg IVPUSH Q4H PRN PRN Reason: Shortness of Breath Last Admin: 01/29/17 04:40 Dose: 1 mg Morphine Sulfate (Morphine) 15 mg PO Q8H [facility] Last Admin: 02/01/17 01:24 Dose: 15 mg Ondansetron HCl (Zofran) 4 mg IV Q6H PRN PRN Reason: Nausea/Vomiting Last Admin: 01/29/17 21:35 Dose: 4 mg Oral Electrolytes (Thermotabs) 2 each PO TID [facility] Last Admin: 01/31/17 22:15 Dose: 2 each Pantoprazole Sodium (Protonix) 40 mg PO BID [facility] Last Admin: 01/31/17 22:16 Dose: 40 mg Polyethylene Glycol (Miralax) 17 gm PO DAILY PRN PRN Reason: Constipation Potassium Chloride (Pharmacy To Dose - Potassium Replacement) 1 dose .XX ASDIRECTED [facility] Potassium Chloride (Klor-Con M20) 20 meq PO DAILY [facility] Last Admin: 01/31/17 09:19 Dose: 20 meq Prednisone (Prednisone) 30 mg PO DAILY [facility] Stop: 02/01/17 09:01 Last Admin: 01/31/17 09:16 Dose: 30 mg Prednisone (Prednisone) 20 mg PO DAILY [facility] Stop: 02/04/17 09:01 Prednisone (Prednisone) 10 mg PO DAILY [facility] Stop: 02/07/17 09:01 Senna/Docusate Sodium (Senna Plus) 1 tab PO BID PRN PRN Reason: Constipation Sertraline HCl (Zoloft) 25 mg PO DAILY [facility] Last Admin: 01/31/17 09:19 Dose: 25 mg Sodium Chloride (Saline Flush) 10 ml FLUSH ASDIRECTED PRN PRN Reason: Keep Vein Open Last Admin: 01/29/17 02:24 Dose: 10 ml Sucralfate (Carafate) 1 gm PO QIDACANDBED [facility] Last Admin: 02/01/17 06:11 Dose: 1 gm Temazepam (Restoril) 7.5 mg PO BEDTIME PRN PRN Reason: Sleep Last Admin: 01/31/17 22:16 Dose: 7.5 mg Discontinued Medications Acetaminophen (Tylenol) 650 mg PO Q4H PRN PRN Reason: Pain Al Hydroxide/Mg Hydroxide (Mag-Al Plus) 30 ml PO ONETIME ONE Stop: 01/29/17 04:13 Last Admin: 01/29/17 04:20 Dose: 30 ml Albuterol/Ipratropium (Duoneb 3.0-0.5 Mg/3 Ml) Confirm Administered Dose 3 ml .ROUTE .STK-MED ONE Stop: 01/29/17 02:20 Last Admin: 01/29/17 02:21 Dose: 3 ml Albuterol/Ipratropium (Duoneb 3.0-0.5 Mg/3 Ml) 3 ml NEB ONETIME ONE Stop: 01/29/17 02:20 Last Admin: 01/29/17 02:21 Dose: Not Given Albuterol/Ipratropium (Duoneb 3.0-0.5 Mg/3 Ml) 3 ml NEB Q2H PRN PRN Reason: Shortness of Breath Last Admin: 01/31/17 06:15 Dose: 3 ml Docusate Sodium (Colace) 100 mg PO BID PRN PRN Reason: Constipation Guaifenesin (Mucinex) 600 mg PO BID [facility] Last Admin: 01/31/17 10:14 Dose: Not Given Guaifenesin (Mucinex) 600 mg PO ONETIME ONE Stop: 01/31/17 09:02 Last Admin: 01/31/17 09:23 Dose: 600 mg Hydromorphone HCl (Dilaudid) 0.25 mg IVPUSH Q2H PRN PRN Reason: Pain (severe 7-10) Promethazine HCl 12.5 mg/ (Sodium Chloride) 50.5 mls @ 100 mls/hr IV Q6H PRN PRN Reason: Nausea/Vomiting Magnesium Sulfate 2 gm/ Premix 50 mls @ 50 mls/hr IV ONETIME ONE Stop: 01/29/17 14:59 Last Admin: 01/29/17 14:15 Dose: 50 mls/hr Azithromycin 250 mg/ Sodium (Chloride) 250 mls @ 250 mls/hr IV Q24H [facility] Last Admin: 01/29/17 22:59 Dose: Not Given Azithromycin 500 mg/ Sodium (Chloride) 250 mls @ 250 mls/hr IV Q24H [facility] Last Admin: 01/29/17 22:59 Dose: Not Given Azithromycin 500 mg/ Sodium (Chloride) 250 mls @ 250 mls/hr IV ONETIME ONE Stop: 01/29/17 23:29 Last Admin: 01/29/17 22:27 Dose: 250 mls/hr Azithromycin 250 mg/ Sodium (Chloride) 250 mls @ 250 mls/hr IV Q24H [facility] Last Admin: 01/31/17 00:14 Dose: Not Given Sodium Chloride (Normal Saline) Confirm Administered Dose 1,000 mls @ as directed .ROUTE .STK-MED ONE Stop: 01/31/17 08:32 Last Admin: 01/31/17 10:14 Dose: Not Given Lorazepam (Ativan) 0.5 mg IVPUSH ONETIME ONE Stop: 01/29/17 02:25 Last Admin: 01/29/17 02:28 Dose: 0.5 mg Lorazepam (Ativan) 0.5 mg IVPUSH ONETIME PRN PRN Reason: Anxiety Last Admin: 01/29/17 05:18 Dose: 0.5 mg Lorazepam (Ativan) 2 mg IVPUSH Q4H PRN PRN Reason: Seizures Lorazepam (Ativan) 0.5 mg IVPUSH Q4H PRN; Protocol PRN Reason: Anxiety Lorazepam (Ativan) 0.5 mg IVPUSH Q4H PRN PRN Reason: Anxiety Methylprednisolone Sodium Succinate (Solu-Medrol) 125 mg IVPUSH ONETIME ONE Stop: 01/29/17 02:20 Last Admin: 01/29/17 02:24 Dose: 125 mg Morphine Sulfate (Ms Contin) 15 mg PO Q8H [facility] Last Admin: 01/30/17 08:17 Dose: Not Given - Exam Quality Assessment: Reports: Supplemental Oxygen, DVT Prophylaxis General: Reports: Alert, Oriented, Cooperative, No Acute Distress HEENT: Reports: Pupils Equal, EOMI, Mucous Membr. Moist/[place] Neck: Reports: Supple Lungs: Reports: Normal Respiratory Effort, Decreased Breath Sounds (throughout) , Wheezing (thight; exp, scattered) Cardiovascular: Reports: Regular Rate, Regular Rhythm GI/Abdominal Exam: Normal Bowel Sounds, Soft, Non-Tender, No Organomegaly (Male) Exam: Deferred Rectal (Males) Exam: Deferred Extremities: Normal Inspection, No Pedal Edema Neurological: Reports: No New Focal Deficit Psy/Mental Status: Reports: Alert, Normal Affect, Normal Mood *Q Meaningful Use (DIS) - VTE *Q VTE Criteria *Q: - Stroke *Q Stroke Criteria *Q: - AMI *Q AMI Criteria *Q:
[2017-02-01 08:06] VITALS: BP 128/70
[2017-02-01] MEDS: Magnesium Oxide 400 MG Tab PO SCH (08:14)
[2017-02-01] MEDS: guaiFENesin 600 MG Tab.ER PO SCH (08:14)
[2017-02-01] MEDS: Potassium Chloride/Sodium Chloride Tab PO SCH (08:14)
[2017-02-01] MEDS: Metoprolol Succinate 25 MG Tab.ER PO SCH (08:15)
[2017-02-01] MEDS: Docusate Sodium 100 MG Cap PO SCH (08:16)
[2017-02-01] MEDS: Sertraline 25 MG Tab PO SCH (08:16)
[2017-02-01] MEDS: Pantoprazole 40 MG Tab.CR PO SCH (08:16)
[2017-02-01] MEDS: predniSONE 10 MG Tab PO SCH (08:17)
[2017-02-01] MEDS: Potassium Chloride 20 MEQ Tab.ER PO SCH (08:17)
[2017-02-02] MEDS ORDERED: predniSONE 20 MG Tab PO SCH (09:00)
[2017-02-05] MEDS ORDERED: predniSONE 10 MG Tab PO SCH (09:00)
== END 2017-02-01 10:10 | disposition other institution (70) | DRG 189 ==
LOC: JD.ED 02:10 → UNDOADMOB 03:08 → OBSVTOIN 03:08 → JD.MS 03:08 → INTOOBSV 03:08 → JD.MS 03:11 → OBSVTOIN 04:15 → UNDOADMOB 04:15 → JD.MS 04:15 → INTOOBSV 04:15 → UNDODISIN 02-01 10:10
PROVIDERS: ADMIT Internal Medicine; ATTEND Internal Medicine
DX: J96.21 Acute and chronic respiratory failure with hypoxia (principal); J44.1 Chronic obstructive pulmonary disease with (acute) exacerbation; R09.02 Hypoxemia; E87.1 Hypo-osmolality and hyponatremia; Z87.891 Personal history of nicotine dependence; E83.42 Hypomagnesemia; R74.8 Abnormal levels of other serum enzymes; I10 Essential (primary) hypertension; K21.9 Gastro-esophageal reflux disease without esophagitis; K22.70 Barrett's esophagus without dysplasia; F32.9 Major depressive disorder, single episode, unspecified; F41.9 Anxiety disorder, unspecified; L30.9 Dermatitis, unspecified; H54.7 Unspecified visual loss; Z91.041 Radiographic dye allergy status; Z91.09 Other allergy status, other than to drugs and biological substances; Z79.899 Other long term (current) drug therapy; Z66 Do not resuscitate
CPT/HCPCS: 36415; 71010; 80053; 83735; 84484; 85025; 93005; 94664; 96374; 96375; 99285; J2060; J2930; J7050; 71020; 71020-26; 80048; 94640; 94640-76; 94762; 97110-GO; 97112-GP; 97116-GP; 97162-GP; 97165-GO; 97535-GO; A9270-GY; J0456; J2270; J2405; J3475

== ENCOUNTER 2017-07-21 16:03 | Inpatient (IN) | payer MEDICARE, BC ==
[2017-07-21] MEDS ORDERED: Sodium Chloride 0.9% 10 ML Syringe FLUSH PRN ×2 (16:22→19:11)
[2017-07-21] MEDS ORDERED: methylPREDNISolone Sodium Succinate 125 MG/2 ML SDV IVPUSH ONE ×2 (16:22→19:03)
[2017-07-21] MEDS ORDERED: Albuterol/Ipratropium 3.0-0.5 MG/3 ML Neb Soln NEB ONE (16:22)
--- NOTE | 2017-07-21 17:23 | EDM.PDOC ---
ED HPI GENERAL MEDICAL PROBLEM - General Chief Complaint: Cardiovascular Problem Stated Complaint: [facility] Time Seen by Provider: 07/21/17 16:20 Source of Information: Reports: Patient, Old Records History Limitations: Reports: No Limitations - History of Present Illness INITIAL COMMENTS - FREE TEXT/NARRATIVE: 82-year-old male arrives vis [place] ambulance service from [facility] for evaluation treatment and shortness of breath. Patient has a history of COPD. He is on oxygen 2 L via nasal cannula normally. Reports over the last day his shortness of breath has significantly worsened. He complains mostly of congestion. Was seen by his lease operator recently, earlier this week , reports some changes to his inhalers. Currently on 5 mg of prednisone daily, he is unable to me how long he has been on this before. In addition to the shortness of breath and congestion he is complaining of headaches. He also reports nonproductive cough. No Fevers, chills, nausea, vomiting, chest pain, abdominal pain, earaches or sore throat. Patient was given albuterol neb en route to the ER. Patient reports he received an influenza vaccine this season. Duration: Day(s): (2) Associated Symptoms: Reports: Headaches. Denies: Fever/Chills Treatments ADMITTING MANAGER: Reports: Other (see below) Other Treatments ADMITTING MANAGER: tylenol and albuteral - Related Data Allergies Allergy/AdvReac Type Severity Reaction Status Date / Time Iodinated Contrast- Oral and Allergy Hives Verified 01/24/17 14:49 IV Dye blood thinner Allergy Other Uncoded 11/25/16 13:08 Home Meds: Home Meds Albuterol [Ventolin HFA] 2 - 4 inh INH Q4H PRN 11/25/16 [History] Budesonide/Formoterol [Symbicort 160-4.5 MCG] 2 inh INH BID 11/25/16 [History] Metoprolol Succinate 25 mg PO DAILY 11/25/16 [History] Latanoprost [Xalatan 0.005% Ophth Soln] 1 drop EYEBOTH BEDTIME 01/24/17 [History ] Lutein 6 mg PO BID 01/24/17 [History] Acetaminophen [Tylenol] 650 mg PO Q4H PRN #0 tablet 01/27/17 [Rx] Magnesium Oxide 400 mg PO BID #60 tablet 01/27/17 [Rx] Albuterol/Ipratropium [DuoNeb 3.0-0.5 MG/3 ML] 3 ml NEB Q6HRRT PRN #1 box [Rx] Pantoprazole [ProTONIX] 40 mg PO BID #60 tab.cr 02/01/17 [Rx] LORazepam [Ativan] 0.5 mg PO BID 07/21/17 [History] LORazepam [Ativan] 0.5 mg PO Q4H PRN 07/21/17 [History] Morphine 15 mg PO BID 07/21/17 [History] Multivitamin with Minerals [Multiple Vitamin] 1 tab PO DAILY 07/21/17 [History] Oxymetazoline [Nasal Decongestant Ford] 1 spray INH DAILY PRN 07/21/17 [History ] Roflumilast [Daliresp] 500 mcg PO DAILY 07/21/17 [History] Sodium Chloride 0.65% [[place] Saline] 1 spray INH DAILY PRN 07/21/17 [History] Umeclidinium Cay[place] [Incruse Ellipta] 1 puff INH DAILY 07/21/17 [History] guaiFENesin [Mucinex] 1,200 mg PO BID 07/21/17 [History] predniSONE 5 mg PO DAILY 07/21/17 [History] Cliradex Lid Scrubs 1 applic TID PRN 07/22/17 [History] Morphine Sulfate 15 mg PO Q8HR PRN 07/22/17 [History] Polyethylene Glycol 3350 [MiraLAX] 17 gm PO DAILY 07/22/17 [History] Past Medical History HEENT History: Reports: Impaired Vision 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 Cardiovascular History: Reports: Hypertension Respiratory History: Reports: COPD, Other (See Below) Other Respiratory History: emphysema Gastrointestinal History: Reports: GERD, Other (See Below) Other Gastrointestinal History: crohns disease Genitourinary History: Reports: None Musculoskeletal History: Reports: None Neurological History: Reports: None Psychiatric History: Reports: Anxiety, Depression Endocrine/Metabolic History: Reports: None Oncologic (Cancer) History: Reports: None Dermatologic History: Reports: Eczema - Infectious Disease History Infectious Disease History: Reports: Chicken Pox - Past Surgical History GI Surgical History: Reports: Cholecystectomy Musculoskeletal Surgical History: Reports: Other (See Below) Other Musculoskeletal Surgeries/Procedures:: hip pain and shoulder pain-goes to a chiropractor on occasion Social & Family History - Family History Family Medical History: Noncontributory Cardiac: Reports: Aneurysm Other Cardiac Family History: mother, brain Oncologic: Reports: Esophageal, Lung Other Oncologic Family History: brother/sisters - Tobacco Use Smoking Status *Q: Former Smoker Years of Tobacco use: 60 Packs/Tins Daily: 2 Used Tobacco, but Quit: Yes Month Tobacco Last Used: 7 years Second Hand Smoke Exposure: No - Caffeine Use Caffeine Use: Reports: Coffee, Soda - Alcohol Use Days Per Week of Alcohol Use: 1 Number of Drinks Per Day: 0 Total Drinks Per Week: 0 - Recreational Drug Use Recreational Drug Use: No ED ROS GENERAL - Review of Systems Review Of Systems: See Below Constitutional: Denies: Fever, Chills HEENT: Reports: Other (reports nasal congestion). Denies: Ear Pain, Throat Pain Respiratory: Reports: Shortness of Breath, Cough. Denies: Sputum Cardiovascular: Denies: Chest Pain GI/Abdominal: Denies: Abdominal Pain, Nausea, Vomiting Neurological: Reports: Headache ED EXAM, GENERAL - Physical Exam Exam: See Below Exam Limited By: No Limitations General Appearance: Alert, WD/WN, No Apparent Distress Ears: Normal External Exam, Hearing Loss Nose: Normal Inspection Throat/Mouth: Normal Inspection, Normal Lips, Normal Oropharynx, Normal Voice, No Airway Compromise Respiratory/Chest: Chest Non-Tender, Decreased Breath Sounds, Wheezing Cardiovascular: Normal Peripheral Pulses, Regular Rate, Rhythm, No Murmur Peripheral Pulses: 2+: Radial (L), Radial (R) GI/Abdominal: Soft, Non-Tender Neurological: Alert, Oriented, Normal Cognition Psychiatric: Normal Affect, Normal Mood Skin Exam: Warm, Dry, Normal Color EKG INTERPRETATION EKG Date: 07/21/17 Time: 16:35 Rhythm: NSR Rate (Beats/Min): 75 EKG Interpretation Comments: very irregular baseline. regular rhythm at 75 bpm. - Regular rhythm vs. a.flutter with 4:1 conduction blocks. Q waves I and AVl . Old lateral wall MT. Near Q waves V2 - questions of old anteroseptal MT. RAD (146 degrees) . Reviewed by myself and Dr. Hendrickson. Course - Vital Signs Last Recorded V/S: Last Vital Signs Temp 36.6 C 07/22/17 11:09 Pulse 119 H 07/22/17 11:09 Resp 23 H 07/22/17 11:09 BP 140/69 07/22/17 11:09 Pulse Ox 93 L 07/22/17 11:09 - Orders/Labs/Meds Orders: Active Orders 24 hr Category Date Time Status Cardiac Monitoring [RC] . DIRECTED Care 07/21/17 16:22 Active RT Aerosol Therapy [RC] ASDIRECTED Care 07/21/17 16:22 Active Chest 1V Frontal [CR] Stat Exams 07/21/17 16:24 Taken Peripheral IV Insertion Adult [OM.PC] Routine Oth 07/21/17 16:21 Ordered EKG 12 Lead [EK] Stat Ther 07/21/17 16:22 Ordered Medication Orders Acetaminophen (Tylenol) 650 mg PO Q4H PRN PRN Reason: Pain Albuterol (Proventil Neb Soln) 2.5 mg NEB Q4H PRN PRN Reason: Shortness of Breath Albuterol/Ipratropium (Duoneb 3.0-0.5 Mg/3 Ml) 3 ml NEB QIDRT [facility] Last Admin: 07/22/17 10:21 Dose: 3 ml Admin: 07/22/17 06:24 Dose: 3 ml Budesonide/Formoterol Fumarate (Symbicort 160-4.5 Mcg) gm INH BID [facility] Enoxaparin Sodium (Lovenox) 40 mg SUBCUT DAILY [facility] Last Admin: 07/22/17 08:24 Dose: Not Given Hydralazine HCl (Apresoline) 20 mg IVPUSH Q6H PRN PRN Reason: Hypertension Sodium Chloride (Normal Saline) 1,000 mls @ 75 mls/hr IV ASDIRECTED [facility] Last Admin: 07/21/17 23:38 Dose: 75 mls/hr Latanoprost (Xalatan 0.005% Ophth Soln) ml EYEBOTH BEDTIME [facility] Lorazepam (Ativan) 0.5 mg PO BID [facility] Lorazepam (Ativan) 0.5 mg PO Q4H PRN PRN Reason: anxiety/SOB Last Admin: 07/22/17 12:59 Dose: 0.5 mg Magnesium Oxide (Magnesium Oxide) 400 mg PO BID [facility] Methylprednisolone Sodium Succinate (Solu-Medrol) 125 mg IVPUSH Q6H [facility] Last Admin: 07/22/17 08:23 Dose: 125 mg Admin: 07/22/17 03:18 Dose: 125 mg Metoprolol Succinate (Toprol Xl) 25 mg PO DAILY [facility] Non-Formulary Medication (Guaifenesin [Mucinex]) 1,200 mg PO BID [facility] Non-Formulary Medication (Roflumilast) 500 mcg PO DAILY [facility] Non-Formulary Medication (Umeclidinium Cay[place]) 1 puff INH DAILY [facility] Oxymetazoline HCl (Afrin Original 0.05% Nasal Ford) ml NASBOTH DAILY PRN PRN Reason: Nasal Dryness Pantoprazole Sodium (Protonix) 40 mg PO BID [facility] Polyethylene Glycol (Miralax) 17 gm PO DAILY [facility] Saccharomyces Boulardii (Florastor) 250 mg PO BID [facility] Temazepam (Restoril) 7.5 mg PO BEDTIME PRN PRN Reason: Sleep Labs: Laboratory Tests 07/21/17 07/21/17 07/21/17 Range/Units 16:30 16:30 17:31 WBC 16.60 H (4.23-9.07) K/mm3 RBC 4.28 L (4.63-6.08) M/mm3 Hgb 12.1 L (13.7-17.5) gm/L Hct 36.4 L (40.1-51.0) % MCV 85.0 (79.0-92.2) fl MCH 28.3 (25.7-32.2) pg MCHC 33.2 (32.2-35.5) g/dl RDW Std Deviation 45.1 H (35.1-43.9) fL Plt Count 284 (163-337) K/mm3 MPV 8.9 L (9.4-12.3) fl Neutrophils % (Manual) 85 H (40-60) % Band Neutrophils % 2 (0-10) % Lymphocytes % (Manual) 7 L (20-40) % Atypical Lymphs % 0 % Monocytes % (Manual) 6 (2-10) % Eosinophils % (Manual) 0 L (0.8-7.0) % Basophils % (Manual) 0 L (0.2-1.2) Platelet Estimate Adequate Poikilocytosis 1+ slight Anisocytosis 1+ slight Ovalocytes 1+ slight RBC Morph Comment Not Reportable Puncture Site Lt radial ABG pH 7.43 (7.35-7.45) ABG pCO2 39.5 (35.0-45.0) mmHg ABG pO2 49.0 L (80.0-100.0) mmHg ABG HCO3 26.0 (22.0-26.0) meq/L ABG O2 Saturation 85.5 L (96.0-97.0) % ABG Base Excess 2.2 H (-2-2.0) Channing Test Positive O2 Delivery Device Nasal cannula Oxygen Flow Rate 2.0 FiO2 0.00 L (21.00-100.00) % Sodium 131 L (136-145) mEq/L Potassium 4.5 (3.5-5.1) mEq/L Chloride 96 L (98-107) mEq/L Carbon Dioxide 26 (21-32) mEq/L Anion Gap 13.5 (5-15) BUN 21 H (7-18) mg/dL Creatinine 1.1 (0.7-1.3) mg/dL Est Cr Clr Drug Dosing 47.53 mL/min Estimated GFR (MDRD) > 60 (>60) mL/min BUN/Creatinine Ratio 19.1 H (14-18) Glucose 113 (83-115) mg/dL Calcium 8.7 (8.5-10.1) mg/dL Magnesium 1.8 (1.8-2.4) mg/dl Total Bilirubin 0.5 (0.2-1.0) mg/dL AST 27 (15-37) U/L ALT 33 (16-63) U/L Alkaline Phosphatase 95 (46-116) U/L Troponin I 0.034 (0.00-0.056) ng/mL Total Protein 6.6 (6.4-8.2) g/dl Albumin 3.3 L (3.4-5.0) g/dl Globulin 3.3 gm/dL Albumin/Globulin Ratio 1.0 (1-2) Meds: Medications Generic Name Dose Route Start Last Admin Trade Name Freq PRN Reason Stop Dose Admin Acetaminophen 650 mg 07/22/17 09:41 Tylenol PO Q4H PRN Pain Albuterol 2.5 mg 07/21/17 22:25 Proventil Neb Soln NEB Q4H PRN Shortness of Breath Albuterol/Ipratropium 3 ml 07/22/17 06:00 07/22/17 10:21 Duoneb 3.0-0.5 Mg/3 Ml NEB 3 ml QIDRT [facility]O Administration Budesonide/Formoterol Fumarate gm 07/22/17 21:00 Symbicort 160-4.5 Mcg INH BID [facility] Enoxaparin Sodium 40 mg 07/22/17 09:00 07/22/17 08:24 Lovenox SUBCUT Not Given DAILY [facility]O Hydralazine HCl 20 mg 07/21/17 22:41 Apresoline IVPUSH Q6H PRN Hypertension Sodium Chloride 1,000 mls @ 75 mls/hr 07/21/17 22:45 07/21/17 23:38 Normal Saline IV 75 mls/hr ASDIRECTED AD[facility]ANO Administration Latanoprost ml 07/22/17 21:00 Xalatan 0.005% Ophth Soln EYEBOTH BEDTIME [facility] Lorazepam 0.5 mg 07/22/17 21:00 Ativan PO BID [facility] Lorazepam 0.5 mg 07/22/17 09:41 07/22/17 12:59 Ativan PO 0.5 mg Q4H PRN Administration anxiety/SOB Magnesium Oxide 400 mg 07/22/17 21:00 Magnesium Oxide PO BID [facility] Methylprednisolone Sodium Succinate 125 mg 07/22/17 02:00 07/22/17 08:23 Solu-Medrol IVPUSH 125 mg Q6H [facility]O Administration Metoprolol Succinate 25 mg 07/23/17 09:00 Toprol Xl PO DAILY [facility] Non-Formulary Medication 1,200 mg 07/22/17 21:00 Guaifenesin [Mucinex] PO BID [facility] Non-Formulary Medication 500 mcg 07/23/17 09:00 Roflumilast PO DAILY [facility] Non-Formulary Medication 1 puff 07/23/17 09:00 Umeclidinium Cayce INH DAILY [facility] Oxymetazoline HCl ml 07/22/17 09:43 Afrin Original 0.05% Nasal [place] NASBOTH DAILY PRN Nasal Dryness Pantoprazole Sodium 40 mg 07/22/17 21:00 Protonix PO BID [facility] Polyethylene Glycol 17 gm 07/23/17 09:00 Miralax PO DAILY [facility] Saccharomyces Boulardii 250 mg 07/23/17 09:00 Florastor PO BID [facility] Temazepam 7.5 mg 07/21/17 22:39 Restoril PO BEDTIME PRN Sleep Discontinued Medications Generic Name Dose Route Start Last Admin Trade Name Arin PRN Reason Stop Dose Admin Acetaminophen 650 mg 07/21/17 17:44 07/21/17 18:16 Tylenol PO 07/21/17 17:45 650 mg NOW ONE Administration Acetaminophen 650 mg 07/21/17 22:37 07/22/17 12:37 Tylenol PO 650 mg Q6H PRN Administration Pain/Fever Albuterol/Ipratropium 3 ml 07/21/17 16:22 07/21/17 16:31 Duoneb 3.0-0.5 Mg/3 Ml NEB 07/21/17 16:23 3 ml ONETIME ONE Administration Diphenhydramine HCl 50 mg 07/21/17 19:03 07/21/17 19:24 Benadryl IVPUSH 07/21/17 19:04 50 mg ONETIME ONE Administration Famotidine 20 mg 07/21/17 19:03 07/21/17 19:28 Pepcid IVPUSH 07/21/17 19:04 20 mg ONETIME ONE Administration Sodium Chloride 100 mls @ 65 mls/hr 07/21/17 19:15 07/21/17 19:48 Normal Saline IV 65 mls/hr ASDIRECTED AD[facility]ANO Administration Levofloxacin/Dextrose 750 mg/ 150 mls @ 100 mls/hr 07/21/17 23:00 07/21/17 23 :38 Premix IV 07/22/17 00:29 100 mls/hr ONETIME ONE Administration Iopamidol 100 ml 07/21/17 19:11 07/21/17 19:48 Isovue-370 (76%) IVPUSH 07/21/17 19:12 100 ml ONETIME ONE Administration Lorazepam 0.5 mg 07/21/17 17:29 07/21/17 17:35 Ativan IVPUSH 07/21/17 17:30 0.5 mg ONETIME ONE Administration Methylprednisolone Sodium Succinate 125 mg 07/21/17 16:22 07/21/17 16:30 Solu-Medrol IVPUSH 07/21/17 16:23 125 mg ONETIME ONE Administration Methylprednisolone Sodium Succinate 125 mg 07/21/17 19:03 07/21/17 19:29 Solu-Medrol IVPUSH 07/21/17 19:04 125 mg ONETIME ONE Administration Sodium Chloride 10 ml 07/21/17 16:22 07/21/17 16:30 Saline Flush FLUSH 10 ml ASDIRECTED PRN Administration Keep Vein Open Sodium Chloride 10 ml 07/21/17 19:11 07/21/17 19:48 Saline Flush FLUSH 10 ml ONETIME PRN Administration IV FLUSH - Radiology Interpretation Free Text/Narrative:: chest xray 1 view shows no acute intrathoracic process. Reviewed by myself and Dr. Hendrickson. CT facial bones/sinuses Technique: Multiple axial sections were obtained through the paranasal sinuses. Findings: Minimal mucosal thickening is seen within the ethmoid and frontal sinuses. Minimal mucosal thickening or possibly small retention cyst is seen within the right maxillary sinus. Sphenoid sinuses clear. No air-fluid levels are seen. No acute bony abnormality is seen. Impression: 1. Minimal sinus findings as noted above. Nothing seen to indicate acute sinusitis. 2. No bony abnormality is seen. CT chest Technique: Multiple axial sections were obtained through the chest. Intravenous contrast was utilized. Study has been performed as a pulmonary angiogram protocol. Findings: Severe emphysematous change is seen throughout both lungs. Lungs otherwise are clear without acute appearing pulmonary densities. Pulmonary arteries are well-opacified. No filling defects are seen to indicate pulmonary embolism. Pulmonary arteries are slightly enlarged likely relating to the patient's emphysematous change. Moderate coronary artery calcification is seen. Mediastinum and hilar regions show no adenopathy or mass. 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 Cyst is noted within the left kidney measuring approximately 4.5 cm. Heart appears within normal limits. Impression: 1. No findings of pulmonary embolism. 2. Severe emphysematous change and other incidental findings as noted above. Formal read from radiology read per Dr. Bueno for a chest x-ray one view shows heart size and mediastinum are within normal limits. Lungs are hyperinflated compatible with emphysematous change. Lungs are otherwise clear. Bony structures are grossly intact. - Re-Assessments/Exams Free Text/Narrative Re-Assessment/Exam: 07/21/17 17:39 Patient is complaining of worsening shortness of breath. He has received 125 mg IV Solu-Medrol and DuoNeb upon arrival to the ER. He also received albuterol neb en route. Of note is lung sounds do sound better. Wheezing has improved and is decreased breath sounds have improved. I will order an ABG and give him some Ativan as I feel this is likely anxiety. He also is fixated on nasal congestion and feels that it is sinuses are significantly congested. I will order a CT of the maxillofacial sinuses to rule out any mass. 07/21/17 17:50 Patient is complaining of headache and states he gets Tylenol scheduled. I will order him some Tylenol at this time. 07/21/17 18:40 ABG returned pO2 is low at 49. Discussed the case with Dr. Hendrickson. Recommend obtaining CT pulmonary and treatment rule out PE. 07/21/17 19:10 Patient has allergy to the IV contracts. Reports he gets hives. Discussed pretreatment with medications. The patient is agreeable. Discussed disposition with the patient. Patient states he cannot go home with his shortness of breath this severe. I do feel that he would benefit from admission for COPD exacerbation. Discussed the case with Dr. Woodward, for possible admission. she would like us to proceed with the CT pulmonary diagram prior to admission. Recommend pretreatment with an additional dose of Solu-Medrol as well as Benadryl and Pepcid. I will notify Dr. Woodward on the CT results are available. Plan will be to admit for a COPD exacerbation. 07/21/17 21:00 influenza returned negative. I informed Dr. Woodward of the CT and influenza result. Plan will be to admit. Based on MCG the patient meets for observation. Departure - Departure Time of Disposition: 21:15 Disposition: Refer to Observation Condition: Fair Clinical Impression: COPD (chronic obstructive pulmonary disease), COPD exacerbation, Hyponatremia - My Orders Last 24 Hours: My Active Orders 07/21/17 16:21 Peripheral IV Insertion Adult [OM.PC] Routine 07/21/17 16:22 Cardiac Monitoring [RC] . DIRECTED RT Aerosol Therapy [RC] ASDIRECTED EKG 12 Lead [EK] Stat 07/21/17 16:24 Chest 1V Frontal [CR] Stat - Assessment/Plan Last 24 Hours: My Active Orders 07/21/17 16:21 Peripheral IV Insertion Adult [OM.PC] Routine 07/21/17 16:22 Cardiac Monitoring [RC] . DIRECTED RT Aerosol Therapy [RC] ASDIRECTED EKG 12 Lead [EK] Stat 07/21/17 16:24 Chest 1V Frontal [CR] Stat
[2017-07-21] MEDS ORDERED: LORazepam 2 MG/ML SDV IVPUSH ONE (17:29)
[2017-07-21] MEDS ORDERED: Acetaminophen 325 MG Tab PO ONE (17:44)
--- NOTE | 2017-07-21 18:30 | CT ---
CT facial bones/sinuses Technique: Multiple axial sections were obtained through the paranasal sinuses. Findings: Minimal mucosal thickening is seen within the ethmoid and frontal sinuses. Minimal mucosal thickening or possibly small retention cyst is seen within the right maxillary sinus. Sphenoid sinuses clear. No air-fluid levels are seen. No acute bony abnormality is seen. Impression: 1. Minimal sinus findings as noted above. Nothing seen to indicate acute sinusitis. 2. No bony abnormality is seen. Diagnostic code #2
[2017-07-21] MEDS ORDERED: Famotidine 20 MG/2 ML SDV IVPUSH ONE (19:03)
[2017-07-21] MEDS ORDERED: diphenhydrAMINE 50 MG/ML SDV IVPUSH ONE (19:03)
[2017-07-21] MEDS ORDERED: Iopamidol 755 Mg/ML 100 ML Bottle IVPUSH ONE (19:11)
[2017-07-21] MEDS ORDERED: Sodium Chloride 0.9% 100 ML IV SCH (19:15)
--- NOTE | 2017-07-21 20:26 | CT ---
CT chest Technique: Multiple axial sections were obtained through the chest. Intravenous contrast was utilized. Study has been performed as a pulmonary angiogram protocol. Findings: Severe emphysematous change is seen throughout both lungs. Lungs otherwise are clear without acute appearing pulmonary densities. Pulmonary arteries are well-opacified. No filling defects are seen to indicate pulmonary embolism. Pulmonary arteries are slightly enlarged likely relating to the patient's emphysematous change. Moderate coronary artery calcification is seen. Mediastinum and hilar regions show no adenopathy or mass. 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 Cyst is noted within the left kidney measuring approximately 4.5 cm. Heart appears within normal limits. Impression: 1. No findings of pulmonary embolism. 2. Severe emphysematous change and other incidental findings as noted above. Diagnostic code #2
[2017-07-21] MEDS ORDERED: Acetaminophen 325 MG Tab PO PRN (22:37)
[2017-07-21] MEDS ORDERED: Temazepam 7.5 MG Cap PO PRN (22:39)
[2017-07-21] MEDS ORDERED: hydrALAZINE 20 MG/ML SDV IVPUSH PRN (22:41)
[2017-07-21] MEDS ORDERED: Levofloxacin/Dextrose 5%-Water 750 MG in Premix Bag 1 BAG IV ONE (23:00)
[2017-07-21] MEDS: Sodium Chloride 0.9% 1,000 ML IV SCH (23:38)
[2017-07-22] MEDS ORDERED: Albuterol/Ipratropium 3.0-0.5 MG/3 ML Neb Soln NEB SCH (03:00)
[2017-07-22] MEDS: methylPREDNISolone Sodium Succinate 125 MG/2 ML SDV IVPUSH SCH ×4 (03:18→20:36)
[2017-07-22] MEDS: Albuterol/Ipratropium 3.0-0.5 MG/3 ML Neb Soln NEB SCH ×4 (06:24→20:45)
[2017-07-22] MEDS: Enoxaparin 40 MG/0.4 ML Syringe SUBCUT SCH (08:24)
[2017-07-22] MEDS ORDERED: Enoxaparin 30 MG/0.3 ML Syringe SUBCUT SCH (09:00)
--- NOTE | 2017-07-22 09:06 | PCM.HP ---
H&P History of Present Illness - General Date of Service: 07/21/17 Admit Problem/Dx: Admission Diagnosis/Problem Admission Diagnosis/Problem COPD, Moderate chronic obstructive pulmonary disease Source of Information: Provider History Limitations: Reports: No Limitations - History of Present Illness Initial Comments - Free Text/Narative: 82 year old male, SNF resident with acute respiratory distress. 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 He complains of congestion, SOB; denies cough fever, chills, N/V, or a sore throat. He remains hypoxic requiring more oxygen after IV solumedrol and aggressive nebulizer treatment. A CT of the chest is unremarkable for a PE or PNA; facial /sinus X ray shows minimal mucosal thickening. He will be admitted for COPD exacerbation in CT telemetry. Onset of Symptoms: Reports: Gradual Symptom Onset Date: 07/21/17 Duration of Symptoms: Reports: Day(s):, Getting Worse Location: Reports: Chest, Generalized Quality: Reports: Same as Previous Episode Severity: Moderate Improves with: Reports: Medication Worsens with: Reports: None Context: Reports: Sick Contact (unknown, lives at [facility]) Associated Symptoms: Reports: Weakness - Related Data Allergies/Adverse Reactions: Allergies Allergy/AdvReac Type Severity Reaction Status Date / Time Iodinated Contrast- Oral and Allergy Hives Verified 01/24/17 14:49 IV Dye blood thinner Allergy Other Uncoded 11/25/16 13:08 Home Medications: Home Meds Albuterol [Ventolin HFA] 2 - 4 inh INH Q4H PRN 11/25/16 [History] Budesonide/Formoterol [Symbicort 160-4.5 MCG] 2 inh INH BID 11/25/16 [History] Metoprolol Succinate 25 mg PO DAILY 11/25/16 [History] Latanoprost [Xalatan 0.005% Ophth Soln] 1 drop EYEBOTH BEDTIME 01/24/17 [History ] Lutein 6 mg PO BID 01/24/17 [History] Acetaminophen [Tylenol] 650 mg PO Q4H PRN #0 tablet 01/27/17 [Rx] Magnesium Oxide 400 mg PO BID #60 tablet 01/27/17 [Rx] Albuterol/Ipratropium [DuoNeb 3.0-0.5 MG/3 ML] 3 ml NEB Q6HRRT PRN #1 box [Rx] Pantoprazole [ProTONIX] 40 mg PO BID #60 tab.cr 02/01/17 [Rx] LORazepam [Ativan] 0.5 mg PO BID 07/21/17 [History] LORazepam [Ativan] 0.5 mg PO Q4H PRN 07/21/17 [History] Morphine 15 mg PO BID 07/21/17 [History] Multivitamin with Minerals [Multiple Vitamin] 1 tab PO DAILY 07/21/17 [History] Oxymetazoline [Nasal Decongestant [place]] 1 spray INH DAILY PRN 07/21/17 [History ] Roflumilast [Daliresp] 500 mcg PO DAILY 07/21/17 [History] Sodium Chloride 0.65% [[place] Saline] 1 spray INH DAILY PRN 07/21/17 [History] Umeclidinium [place] [Incruse Ellipta] 1 puff INH DAILY 07/21/17 [History] guaiFENesin [Mucinex] 1,200 mg PO BID 07/21/17 [History] predniSONE 5 mg PO DAILY 07/21/17 [History] Cliradex Lid Scrubs 1 applic TID PRN 07/22/17 [History] Morphine Sulfate 15 mg PO Q8HR PRN 07/22/17 [History] Polyethylene Glycol 3350 [MiraLAX] 17 gm PO DAILY 07/22/17 [History] Past Medical History HEENT History: Reports: Impaired Vision 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 Cardiovascular History: Reports: Hypertension Respiratory History: Reports: COPD, Other (See Below) Other Respiratory History: emphysema Gastrointestinal History: Reports: GERD, Other (See Below) Other Gastrointestinal History: crohns disease Genitourinary History: Reports: None Musculoskeletal History: Reports: None Neurological History: Reports: None Psychiatric History: Reports: Anxiety, Depression Endocrine/Metabolic History: Reports: None Oncologic (Cancer) History: Reports: None Dermatologic History: Reports: Eczema - Infectious Disease History Infectious Disease History: Reports: Chicken Pox - Past Surgical History GI Surgical History: Reports: Cholecystectomy Musculoskeletal Surgical History: Reports: Other (See Below) Other Musculoskeletal Surgeries/Procedures:: hip pain and shoulder pain-goes to a chiropractor on occasion Social & Family History - Family History Family Medical History: Noncontributory Cardiac: Reports: Aneurysm Other Cardiac Family History: mother, brain Oncologic: Reports: Esophageal, Lung Other Oncologic Family History: brother/sisters - Tobacco Use Smoking Status *Q: Former Smoker Years of Tobacco use: 60 Packs/Tins Daily: 2 Used Tobacco, but Quit: Yes Month Tobacco Last Used: 7 years Second Hand Smoke Exposure: No - Caffeine Use Caffeine Use: Reports: Coffee, Soda - Alcohol Use Days Per Week of Alcohol Use: 1 Number of Drinks Per Day: 0 Total Drinks Per Week: 0 - Recreational Drug Use Recreational Drug Use: No H&P Review of Systems - Review of Systems: Review Of Systems: See Below General: Reports: No Symptoms HEENT: Reports: No Symptoms Pulmonary: Reports: Shortness of Breath Cardiovascular: Reports: No Symptoms Gastrointestinal: Reports: No Symptoms Genitourinary: Reports: No Symptoms Musculoskeletal: Reports: No Symptoms Skin: Reports: No Symptoms Psychiatric: Reports: Anxiety Neurological: Reports: Headache Hematologic/Lymphatic: Reports: No Symptoms Immunologic: Reports: No Symptoms Exam - Exam Exam: See Below - Vital Signs Vital Signs: Last Vital Signs Temp 36.5 C 07/22/17 07:49 Pulse 90 07/22/17 07:49 Resp 24 H 07/22/17 07:49 BP 133/60 07/22/17 07:49 Pulse Ox 95 07/22/17 07:49 Weight: 66.088 kg - Exam Quality Assessment: Supplemental Oxygen, DVT Prophylaxis General: Alert, Oriented HEENT: Conjunctiva Clear, Nares Patent, Normal Nasal Septum, Pupils Equal, Pupils Reactive, Rhinitis, PERRLA Neck: Supple, Trachea Midline Lungs: Decreased Breath Sounds, Rhonchi, Wheezing Cardiovascular: Regular Rate, Regular Rhythm GI/Abdominal Exam: Normal Bowel Sounds, Soft, Non-Tender, No Organomegaly, No Distention (Male) Exam: Deferred Rectal (Males) Exam: Deferred Back Exam: Normal Inspection Extremities: Normal Inspection, Non-Tender Skin: Warm Neurological: Cranial Nerves Intact Neuro Extensive - Mental Status: Alert, Oriented x3, Normal Mood/Affect, Normal Cognition, Memory Intact Neuro Extensive - Motor, Sensory, Reflexes: CN II-XII Intact Psychiatric: Alert, Anxious - Patient Data Lab Results Last 24 hrs: Laboratory Results - last 24 hr 07/21/17 07/22/17 07/22/17 Range/Units 22:25 06:10 06:10 WBC 9.25 H (4.23-9.07) K/mm3 RBC 4.18 L (4.63-6.08) M/mm3 Hgb 11.7 L (13.7-17.5) gm/L Hct 35.4 L (40.1-51.0) % MCV 84.7 (79.0-92.2) fl MCH 28.0 (25.7-32.2) pg MCHC 33.1 (32.2-35.5) g/dl RDW Std Deviation 44.9 H (35.1-43.9) fL Plt Count 255 (163-337) K/mm3 MPV 8.7 L (9.4-12.3) fl Neut % (Auto) 93.3 H (34.0-67.9) % Lymph % (Auto) 3.4 L (21.8-53.1) % [place] % (Auto) 3.0 L (5.3-12.2) % Eos % (Auto) 0 L (0.8-7.0) Baso % (Auto) 0.1 (0.1-1.2) % Neut # (Auto) 8.63 H (1.78-5.38) K/mm3 Lymph # (Auto) 0.31 L (1.32-3.57) K/mm3 [place] # (Auto) 0.28 L (0.30-0.82) K/mm3 Eos # (Auto) 0.00 L (0.04-0.54) K/mm3 Baso # (Auto) 0.01 (0.01-0.08) K/mm3 Manual Slide Review Abnormal smear Sodium 134 L (136-145) mEq/L Potassium 4.5 (3.5-5.1) mEq/L Chloride 100 (98-107) mEq/L Carbon Dioxide 25 (21-32) mEq/L Anion Gap 13.5 (5-15) BUN 21 H (7-18) mg/dL Creatinine 1.0 (0.7-1.3) mg/dL Est Cr Clr Drug Dosing 54.16 mL/min Estimated GFR (MDRD) > 60 (>60) mL/min BUN/Creatinine Ratio 21.0 H (14-18) Glucose 114 (83-115) mg/dL Lactic Acid (0.4-2.0) mmol/L Calcium 8.8 (8.5-10.1) mg/dL Magnesium 1.9 (1.8-2.4) mg/dl C-Reactive Protein 6.6 H* (<1.0) mg/dL Mycoplasma pneumon IgM Negative (NEGATIVE) MRSA (PCR) Negative 07/22/17 Range/Units 06:10 WBC (4.23-9.07) K/mm3 RBC (4.63-6.08) M/mm3 Hgb (13.7-17.5) gm/L Hct (40.1-51.0) % MCV (79.0-92.2) fl MCH (25.7-32.2) pg MCHC (32.2-35.5) g/dl RDW Std Deviation (35.1-43.9) fL Plt Count (163-337) K/mm3 MPV (9.4-12.3) fl Neut % (Auto) (34.0-67.9) % Lymph % (Auto) (21.8-53.1) % [place] % (Auto) (5.3-12.2) % Eos % (Auto) (0.8-7.0) Baso % (Auto) (0.1-1.2) % Neut # (Auto) (1.78-5.38) K/mm3 Lymph # (Auto) (1.32-3.57) K/mm3 [place] # (Auto) (0.30-0.82) K/mm3 Eos # (Auto) (0.04-0.54) K/mm3 Baso # (Auto) (0.01-0.08) K/mm3 Manual Slide Review Sodium (136-145) mEq/L Potassium (3.5-5.1) mEq/L Chloride (98-107) mEq/L Carbon Dioxide (21-32) mEq/L Anion Gap (5-15) BUN (7-18) mg/dL Creatinine (0.7-1.3) mg/dL Est Cr Clr Drug Dosing mL/min Estimated GFR (MDRD) (>60) mL/min BUN/Creatinine Ratio (14-18) Glucose (83-115) mg/dL Lactic Acid 0.8 (0.4-2.0) mmol/L Calcium (8.5-10.1) mg/dL Magnesium (1.8-2.4) mg/dl C-Reactive Protein (<1.0) mg/dL Mycoplasma pneumon IgM (NEGATIVE) MRSA (PCR) Result Diagrams: 07/22/17 06:10 07/22/17 06:10 *Q Meaningful Use (ADM) - VTE *Q VTE Criteria *Q: - Stroke *Q Stroke Criteria *Q: - AMI *Q AMI Criteria *Q: - Problem List (1) COPD (chronic obstructive pulmonary disease) SNOMED Code(s): 76829794 ICD Code: J44.9 - CHRONIC OBSTRUCTIVE PULMONARY DISEASE, UNSPECIFIED Status : Acute Current Visit: Yes (2) COPD exacerbation SNOMED Code(s): 273053654895352 ICD Code: J44.1 - CHRONIC OBSTRUCTIVE PULMONARY DISEASE W (ACUTE) EXACERBATION Status: Acute Current Visit: Yes (3) Hyponatremia SNOMED Code(s): 96980477 ICD Code: E87.1 - HYPO-OSMOLALITY AND HYPONATREMIA Status: Acute Current Visit: Yes (4) Hyponatremia SNOMED Code(s): 55970112 ICD Code: E87.1 - HYPO-OSMOLALITY AND HYPONATREMIA Status: Acute Priority : High Current Visit: No (5) Hypoxemia SNOMED Code(s): 806023993 ICD Code: R09.02 - HYPOXEMIA Status: Acute Current Visit: No Problem List Initiated/Reviewed/Updated: Yes Orders Last 24hrs: Active Orders 24 hr Category Date Time Status Oxygen Therapy [RC] ASDIRECTED Care 07/22/17 02:23 Active RT Aerosol Therapy [RC] ASDIRECTED Care 07/21/17 22:25 Active RT Aerosol Therapy [RC] ASDIRECTED Care 07/22/17 00:12 Active Up ad [place] [RC] ASDIRECTED Care 07/21/17 22:26 Active Heart Healthy Diet [DIET] Diet 07/22/17 Breakfast Active RESPIRATORY PANEL BY PCR [MREF] Routine Lab 07/21/17 22:25 Received STREP PNEUMONIAE ANTIGEN [MREF] Routine Lab 07/21/17 22:25 Received Acetaminophen [Tylenol] Med 07/21/17 22:37 Active 650 mg PO Q6H PRN Albuterol [Proventil Neb Soln] Med 07/21/17 22:25 Active 2.5 mg NEB Q4H PRN Albuterol/Ipratropium [DuoNeb 3.0-0.5 MG/3 ML] Med 07/22/17 06:00 Active 3 ml NEB QIDRT Enoxaparin [Lovenox] Med 07/22/17 09:00 Active 40 mg SUBCUT DAILY Sodium Chloride 0.9% [Normal Saline] 1,000 ml Med 07/21/17 22:45 Active IV ASDIRECTED Temazepam [Restoril] Med 07/21/17 22:39 Active 7.5 mg PO BEDTIME PRN hydrALAZINE [Apresoline] Med 07/21/17 22:41 Active 20 mg IVPUSH Q6H PRN methylPREDNISolone Sod Succ [Solu-MEDROL] Med 07/22/17 02:00 Active 125 mg IVPUSH Q6H Isolation [COMM] Routine Oth 07/21/17 22:14 Ordered Code Status [Resuscitation Status] Routine Resus Stat 07/21/17 22:32 Ordered Medication Orders Acetaminophen (Tylenol) 650 mg PO Q6H PRN PRN Reason: Pain/Fever Albuterol (Proventil Neb Soln) 2.5 mg NEB Q4H PRN PRN Reason: Shortness of Breath Albuterol/Ipratropium (Duoneb 3.0-0.5 Mg/3 Ml) 3 ml NEB QIDRT [facility] Last Admin: 07/22/17 06:24 Dose: 3 ml Enoxaparin Sodium (Lovenox) 40 mg SUBCUT DAILY [facility] Last Admin: 07/22/17 08:24 Dose: Not Given Hydralazine HCl (Apresoline) 20 mg IVPUSH Q6H PRN PRN Reason: Hypertension Sodium Chloride (Normal Saline) 1,000 mls @ 75 mls/hr IV ASDIRECTED [facility] Last Admin: 07/21/17 23:38 Dose: 75 mls/hr Methylprednisolone Sodium Succinate (Solu-Medrol) 125 mg IVPUSH Q6H [facility] Last Admin: 07/22/17 08:23 Dose: 125 mg Admin: 07/22/17 03:18 Dose: 125 mg Temazepam (Restoril) 7.5 mg PO BEDTIME PRN PRN Reason: Sleep Assessment/Plan Comment:: Impression: Acute exacerbation of COPD End stage COPD; O2 and steroid dependent Query acute viral infection Hypoxemia Hyponatremia Chronic HTN GERDAnxiety Depression Crohn's disease Plan: Empiric ATB Viral/resp panel Mycoplasma Strep pneumo IV steroids Daily Labs Home meds DVT/GI prophylaxis Obs admission with telemetry
[2017-07-22] MEDS ORDERED: LORazepam 0.5 MG Tab PO PRN (09:41)
[2017-07-22] MEDS: Sodium Chloride 0.9% 1,000 ML IV SCH (13:00)
[2017-07-22] MEDS ORDERED: LORazepam 1 MG Tab PO PRN (13:45)
[2017-07-22] MEDS ORDERED: LORazepam 2 MG/ML SDV IVPUSH ONE (13:52)
--- NOTE | 2017-07-22 14:07 | CR ---
Chest: Portable view of the chest was obtained. Comparison: Prior chest x-ray of 01/31/17. Heart size and mediastinum are within normal limits. Lungs are hyperinflated compatible with emphysematous change. Lungs otherwise are clear. Bony structures are grossly intact. Impression: 1. Emphysematous change. Nothing acute is seen on frontal chest x-ray. Diagnostic code #2
[2017-07-22] MEDS: Albuterol 0.083% 2.5 MG/3 ML Neb Soln NEB PRN (14:11)
[2017-07-22] MEDS: ROFLUMILAST 500 MCG PO SCH (14:30)
[2017-07-22] MEDS: Metoprolol Succinate 25 MG Tab.ER PO SCH (14:30)
--- NOTE | 2017-07-22 19:37 | PCM.PN ---
- General Info Date of Service: 07/22/17 Functional Status: Reports: Ambulating (SOB with exertion) - Review of Systems General: Reports: Weakness HEENT: Reports: No Symptoms Pulmonary: Reports: Shortness of Breath Cardiovascular: Reports: No Symptoms Gastrointestinal: Reports: No Symptoms Genitourinary: Reports: No Symptoms Musculoskeletal: Reports: No Symptoms Skin: Reports: No Symptoms Neurological: Reports: No Symptoms Psychiatric: Reports: No Symptoms - Patient Data Vitals - Most Recent: Last Vital Signs Temp 36.6 C 07/22/17 11:09 Pulse 132 H 07/22/17 14:33 Resp 22 H 07/22/17 14:33 BP 150/91 H 07/22/17 14:33 Pulse Ox 96 07/22/17 16:54 Weight - Most Recent: 66.088 kg I&O - Last 24 Hours: Intake & Output 07/22/17 07/22/17 07/22/17 06:59 14:59 22:59 Intake Total 946 1200 780 Output Total 2350 250 Balance -1404 950 780 Lab Results Last 24 Hours: Laboratory Results - last 24 hr 07/21/17 07/22/17 07/22/17 Range/Units 22:25 06:10 06:10 WBC 9.25 H (4.23-9.07) K/mm3 RBC 4.18 L (4.63-6.08) M/mm3 Hgb 11.7 L (13.7-17.5) gm/L Hct 35.4 L (40.1-51.0) % MCV 84.7 (79.0-92.2) fl MCH 28.0 (25.7-32.2) pg MCHC 33.1 (32.2-35.5) g/dl RDW Std Deviation 44.9 H (35.1-43.9) fL Plt Count 255 (163-337) K/mm3 MPV 8.7 L (9.4-12.3) fl Neut % (Auto) 93.3 H (34.0-67.9) % Lymph % (Auto) 3.4 L (21.8-53.1) % [place] % (Auto) 3.0 L (5.3-12.2) % Eos % (Auto) 0 L (0.8-7.0) Baso % (Auto) 0.1 (0.1-1.2) % Neut # (Auto) 8.63 H (1.78-5.38) K/mm3 Lymph # (Auto) 0.31 L (1.32-3.57) K/mm3 [place] # (Auto) 0.28 L (0.30-0.82) K/mm3 Eos # (Auto) 0.00 L (0.04-0.54) K/mm3 Baso # (Auto) 0.01 (0.01-0.08) K/mm3 Manual Slide Review Abnormal smear Sodium 134 L (136-145) mEq/L Potassium 4.5 (3.5-5.1) mEq/L Chloride 100 (98-107) mEq/L Carbon Dioxide 25 (21-32) mEq/L Anion Gap 13.5 (5-15) BUN 21 H (7-18) mg/dL Creatinine 1.0 (0.7-1.3) mg/dL Est Cr Clr Drug Dosing 54.16 mL/min Estimated GFR (MDRD) > 60 (>60) mL/min BUN/Creatinine Ratio 21.0 H (14-18) Glucose 114 (83-115) mg/dL Lactic Acid (0.4-2.0) mmol/L Calcium 8.8 (8.5-10.1) mg/dL Magnesium 1.9 (1.8-2.4) mg/dl C-Reactive Protein 6.6 H* (<1.0) mg/dL C.difficile [id number]-[id number] C. difficile Tox (PCR) Mycoplasma pneumon IgM Negative (NEGATIVE) MRSA (PCR) Negative 07/22/17 07/22/17 Range/Units 06:10 09:58 WBC (4.23-9.07) K/mm3 RBC (4.63-6.08) M/mm3 Hgb (13.7-17.5) gm/L Hct (40.1-51.0) % MCV (79.0-92.2) fl MCH (25.7-32.2) pg MCHC (32.2-35.5) g/dl RDW Std Deviation (35.1-43.9) fL Plt Count (163-337) K/mm3 MPV (9.4-12.3) fl Neut % (Auto) (34.0-67.9) % Lymph % (Auto) (21.8-53.1) % [place] % (Auto) (5.3-12.2) % Eos % (Auto) (0.8-7.0) Baso % (Auto) (0.1-1.2) % Neut # (Auto) (1.78-5.38) K/mm3 Lymph # (Auto) (1.32-3.57) K/mm3 [place] # (Auto) (0.30-0.82) K/mm3 Eos # (Auto) (0.04-0.54) K/mm3 Baso # (Auto) (0.01-0.08) K/mm3 Manual Slide Review Sodium (136-145) mEq/L Potassium (3.5-5.1) mEq/L Chloride (98-107) mEq/L Carbon Dioxide (21-32) mEq/L Anion Gap (5-15) BUN (7-18) mg/dL Creatinine (0.7-1.3) mg/dL Est Cr Clr Drug Dosing mL/min Estimated GFR (MDRD) (>60) mL/min BUN/Creatinine Ratio (14-18) Glucose (83-115) mg/dL Lactic Acid 0.8 (0.4-2.0) mmol/L Calcium (8.5-10.1) mg/dL Magnesium (1.8-2.4) mg/dl C-Reactive Protein (<1.0) mg/dL C.difficile [id number] Presumptive negative C. difficile Tox (PCR) Negative Mycoplasma pneumon IgM (NEGATIVE) MRSA (PCR) [place]man Results Last 24 Hours: Microbiology 07/22/17 09:59 Stool for WBCs - Final Stool / Feces - Stool, Liquid NO WBC SEEN Med Orders - Current: Current Medications Acetaminophen (Tylenol) 650 mg PO Q4H PRN PRN Reason: Pain Albuterol (Proventil Neb Soln) 2.5 mg NEB Q4H PRN PRN Reason: Shortness of Breath Last Admin: 07/22/17 14:11 Dose: 2.5 mg Albuterol/Ipratropium (Duoneb 3.0-0.5 Mg/3 Ml) 3 ml NEB QIDRT [facility] Last Admin: 07/22/17 16:52 Dose: 3 ml Budesonide/Formoterol Fumarate (Symbicort 160-4.5 Mcg) 0 gm INH BID [facility] Enoxaparin Sodium (Lovenox) 40 mg SUBCUT DAILY [facility] Last Admin: 07/22/17 08:24 Dose: Not Given Hydralazine HCl (Apresoline) 20 mg IVPUSH Q6H PRN PRN Reason: Hypertension Last Admin: 07/22/17 14:40 Dose: 20 mg Sodium Chloride (Normal Saline) 1,000 mls @ 75 mls/hr IV ASDIRECTED [facility] Last Admin: 07/22/17 13:00 Dose: 75 mls/hr Latanoprost (Xalatan 0.005% Ophth Soln) 0 ml EYEBOTH BEDTIME [facility] Lorazepam (Ativan) 0.5 mg PO BID [facility] Lorazepam (Ativan) 0.5 mg PO Q4H PRN PRN Reason: anxiety/SOB Magnesium Oxide (Magnesium Oxide) 400 mg PO BID [facility] Methylprednisolone Sodium Succinate (Solu-Medrol) 125 mg IVPUSH Q6H [facility] Last Admin: 07/22/17 13:34 Dose: 125 mg Metoprolol Succinate (Toprol Xl) 25 mg PO DAILY [facility] Last Admin: 07/22/17 14:30 Dose: 25 mg Guaifenesin [Mucinex ] Er 600 MgOwn Med 1,200 mg PO BID [facility] Roflumilast 500 Mcg* (*Own Med) 500 mcg PO DAILY [facility] Last Admin: 07/22/17 14:30 Dose: 500 mcg Umeclidinium [place] (Incruse Ellipta)) 1 Puff)Own Med 1 puff INH DAILY [facility] Oxymetazoline HCl (Afrin Original 0.05% Nasal [place]) 0 ml NASBOTH DAILY PRN PRN Reason: Nasal Dryness Pantoprazole Sodium (Protonix) 40 mg PO BID [facility] Polyethylene Glycol (Miralax) 17 gm PO DAILY [facility] Saccharomyces Boulardii (Florastor) 250 mg PO BID [facility] Temazepam (Restoril) 7.5 mg PO BEDTIME PRN PRN Reason: Sleep Discontinued Medications Acetaminophen (Tylenol) 650 mg PO NOW ONE Stop: 07/21/17 17:45 Last Admin: 07/21/17 18:16 Dose: 650 mg Acetaminophen (Tylenol) 650 mg PO Q6H PRN PRN Reason: Pain/Fever Last Admin: 07/22/17 12:37 Dose: 650 mg Albuterol/Ipratropium (Duoneb 3.0-0.5 Mg/3 Ml) 3 ml NEB ONETIME ONE Stop: 07/21/17 16:23 Last Admin: 07/21/17 16:31 Dose: 3 ml Diphenhydramine HCl (Benadryl) 50 mg IVPUSH ONETIME ONE Stop: 07/21/17 19:04 Last Admin: 07/21/17 19:24 Dose: 50 mg Famotidine (Pepcid) 20 mg IVPUSH ONETIME ONE Stop: 07/21/17 19:04 Last Admin: 07/21/17 19:28 Dose: 20 mg Sodium Chloride (Normal Saline) 100 mls @ 65 mls/hr IV ASDIRECTED [facility] Last Admin: 07/21/17 19:48 Dose: 65 mls/hr Levofloxacin/Dextrose 750 mg/ (Premix) 150 mls @ 100 mls/hr IV ONETIME ONE Stop: 07/22/17 00:29 Last Admin: 07/21/17 23:38 Dose: 100 mls/hr Iopamidol (Isovue-370 (76%)) 100 ml IVPUSH ONETIME ONE Stop: 07/21/17 19:12 Last Admin: 07/21/17 19:48 Dose: 100 ml Lorazepam (Ativan) 0.5 mg IVPUSH ONETIME ONE Stop: 07/21/17 17:30 Last Admin: 07/21/17 17:35 Dose: 0.5 mg Lorazepam (Ativan) 0.5 mg PO Q4H PRN PRN Reason: anxiety/SOB Last Admin: 07/22/17 12:59 Dose: 0.5 mg Lorazepam (Ativan) 1 mg IVPUSH ONETIME ONE Stop: 07/22/17 13:53 Last Admin: 07/22/17 14:01 Dose: 1 mg Methylprednisolone Sodium Succinate (Solu-Medrol) 125 mg IVPUSH ONETIME ONE Stop: 07/21/17 16:23 Last Admin: 07/21/17 16:30 Dose: 125 mg Methylprednisolone Sodium Succinate (Solu-Medrol) 125 mg IVPUSH ONETIME ONE Stop: 07/21/17 19:04 Last Admin: 07/21/17 19:29 Dose: 125 mg Sodium Chloride (Saline Flush) 10 ml FLUSH ASDIRECTED PRN PRN Reason: Keep Vein Open Last Admin: 07/21/17 16:30 Dose: 10 ml Sodium Chloride (Saline Flush) 10 ml FLUSH ONETIME PRN PRN Reason: IV FLUSH Last Admin: 07/21/17 19:48 Dose: 10 ml - Exam Quality Assessment: Supplemental Oxygen, DVT Prophylaxis General: Alert, Oriented, Cooperative HEENT: Pupils Equal, Pupils Reactive, EOMI Lungs: Normal Respiratory Effort, Decreased Breath Sounds Cardiovascular: Regular Rate, Tachycardia GI/Abdominal Exam: Normal Bowel Sounds, Soft, Non-Tender, No Organomegaly, No Distention (Male) Exam: Deferred Back Exam: Normal Inspection Extremities: Normal Inspection Skin: Warm Neurological: No New Focal Deficit, Normal Gait, Normal Speech Psy/Mental Status: Alert, Anxious - Problem List & Annotations (1) COPD (chronic obstructive pulmonary disease) SNOMED Code(s): 15204138 Code(s): J44.9 - CHRONIC OBSTRUCTIVE PULMONARY DISEASE, UNSPECIFIED Status : Acute Current Visit: Yes (2) COPD exacerbation SNOMED Code(s): 192014886108050 Code(s): J44.1 - CHRONIC OBSTRUCTIVE PULMONARY DISEASE W (ACUTE) EXACERBATION Status: Acute Current Visit: Yes (3) Hyponatremia SNOMED Code(s): 35848427 Code(s): E87.1 - HYPO-OSMOLALITY AND HYPONATREMIA Status: Acute Current Visit: Yes (4) Hyponatremia SNOMED Code(s): 76562128 Code(s): E87.1 - HYPO-OSMOLALITY AND HYPONATREMIA Status: Acute Priority : High Current Visit: No (5) Hypoxemia SNOMED Code(s): 300173300 Code(s): R09.02 - HYPOXEMIA Status: Acute Current Visit: No - Problem List Review Problem List Initiated/Reviewed/Updated: Yes - My Orders Last 24 Hours: My Active Orders 07/21/17 22:14 Isolation [COMM] Routine 07/21/17 22:25 RT Aerosol Therapy [RC] ASDIRECTED RESPIRATORY PANEL BY PCR [MREF] Routine STREP PNEUMONIAE ANTIGEN [MREF] Routine Albuterol [Proventil Neb Soln] 2.5 mg NEB Q4H PRN 07/21/17 22:26 Up ad [place] [RC] ASDIRECTED 07/21/17 22:32 Code Status [Resuscitation Status] Routine 07/21/17 22:39 Temazepam [Restoril] 7.5 mg PO BEDTIME PRN 07/21/17 22:41 hydrALAZINE [Apresoline] 20 mg IVPUSH Q6H PRN 07/21/17 22:45 Sodium Chloride 0.9% [Normal Saline] 1,000 ml IV ASDIRECTED 07/22/17 00:12 RT Aerosol Therapy [RC] ASDIRECTED 07/22/17 02:00 methylPREDNISolone Sod Succ [Solu-MEDROL] 125 mg IVPUSH Q6H 07/22/17 02:23 Oxygen Therapy [RC] ASDIRECTED 07/22/17 06:00 Albuterol/Ipratropium [DuoNeb 3.0-0.5 MG/3 ML] 3 ml NEB QIDRT 07/22/17 09:00 Enoxaparin [Lovenox] 40 mg SUBCUT DAILY 07/22/17 09:41 Acetaminophen [Tylenol] 650 mg PO Q4H PRN 07/22/17 09:43 Oxymetazoline [Afrin Original 0.05% Nasal [place]] 0 ml NASBOTH DAILY PRN 07/22/17 13:45 LORazepam [Ativan] 0.5 mg PO Q4H PRN 07/22/17 21:00 Budesonide/Formoterol [Symbicort 160-4.5 MCG] 0 gm INH BID LORazepam [Ativan] 0.5 mg PO BID Latanoprost [Xalatan 0.005% Ophth Soln] 0 ml EYEBOTH BEDTIME Magnesium Oxide 400 mg PO BID Pantoprazole [ProTONIX] 40 mg PO BID guaiFENesin [Mucinex] 1,200 mg PO BID 07/22/17 Breakfast Heart Healthy Diet [DIET] 07/23/17 09:00 Metoprolol Succinate [Toprol XL] 25 mg PO DAILY Polyethylene Glycol 3350 [MiraLAX] 17 gm PO DAILY Roflumilast 500 mcg PO DAILY Saccharomyces Boulardii [Florastor] 250 mg PO BID Umeclidinium [place] 1 puff INH DAILY - Plan Plan:: Impression: Acute exacerbation of COPD End stage COPD; O2 and steroid dependent Query acute viral infection Hypoxemia Hyponatremia Chronic HTN GERDAnxiety Depression Crohn's disease Plan: Empiric ATB Viral/resp panel CK: Mycoplasma; Strep pneumo IV steroids Daily Labs Home meds DVT/GI prophylaxis OBS with tele
[2017-07-22] MEDS ORDERED: Metoprolol Tartrate 5 MG/5 ML SDV IVPUSH PRN (20:03)
[2017-07-22] MEDS: LORazepam 0.5 MG Tab PO SCH (20:36)
[2017-07-22] MEDS: busPIRone 5 MG Tab PO SCH (20:36)
[2017-07-22] MEDS: Magnesium Oxide 400 MG Tab PO SCH (20:37)
[2017-07-22] MEDS: Pantoprazole 40 MG Tab.CR**OWN MED PO SCH (20:37)
[2017-07-22] MEDS: GUAIFENESIN 600 MG PO SCH (20:37)
[2017-07-22] MEDS: Latanoprost 0.005% Ophth Soln 2.5 ML Bottle**OWN MED EYEBOTH SCH (20:37)
[2017-07-22] MEDS: FORMOTEROL INH SCH (20:45)
[2017-07-22] MEDS: BUDESONIDE INH SCH (20:45)
[2017-07-22] MEDS: UMECLIDINIUM BROMIDE INH SCH (20:56)
[2017-07-23] MEDS: methylPREDNISolone Sodium Succinate 125 MG/2 ML SDV IVPUSH SCH ×4 (02:36→17:39)
[2017-07-23] MEDS: Sodium Chloride 0.9% 1,000 ML IV SCH ×2 (04:01→17:39)
[2017-07-23] MEDS: Albuterol/Ipratropium 3.0-0.5 MG/3 ML Neb Soln NEB SCH ×4 (06:23→20:35)
[2017-07-23] MEDS: BUDESONIDE INH SCH ×3 (08:00→21:41)
[2017-07-23] MEDS: FORMOTEROL INH SCH ×3 (08:00→21:41)
[2017-07-23] MEDS: UMECLIDINIUM BROMIDE INH SCH (08:00)
[2017-07-23] MEDS: Pantoprazole 40 MG Tab.CR**OWN MED PO SCH ×2 (08:45→21:28)
[2017-07-23] MEDS: Saccharomyces Boulardii (Probiotic) 250 MG Cap PO SCH ×2 (08:45→21:27)
[2017-07-23] MEDS: GUAIFENESIN 600 MG PO SCH ×2 (08:47→21:34)
[2017-07-23] MEDS: busPIRone 5 MG Tab PO SCH ×2 (08:47→21:28)
[2017-07-23] MEDS: Magnesium Oxide 400 MG Tab PO SCH ×2 (08:47→21:28)
[2017-07-23] MEDS: Enoxaparin 40 MG/0.4 ML Syringe SUBCUT SCH (08:47)
[2017-07-23] MEDS: LORazepam 0.5 MG Tab PO SCH ×2 (08:47→21:28)
[2017-07-23] MEDS: Metoprolol Succinate 25 MG Tab.ER PO SCH (08:47)
[2017-07-23] MEDS: ROFLUMILAST 500 MCG PO SCH (08:48)
[2017-07-23] MEDS: Polyethylene Glycol 3350 Powder 17 GM Packet PO SCH (08:48)
[2017-07-23] MEDS ORDERED: Magnesium Sulfate/Water 2 GM in Premix Bag 1 BAG IV ONE (10:03)
[2017-07-23] MEDS: Acetaminophen 325 MG Tab PO PRN ×2 (10:03→21:57)
[2017-07-23] MEDS: Albuterol 0.083% 2.5 MG/3 ML Neb Soln NEB PRN (14:38)
--- NOTE | 2017-07-23 16:52 | PCM.PN ---
- General Info Date of Service: 07/23/17 Subjective Update: Reassessed admission, qualifies for full admission, requires increase O2 as well as IV steroids Functional Status: Reports: Tolerating Diet, Ambulating - Review of Systems General: Reports: Weakness HEENT: Reports: No Symptoms Pulmonary: Reports: Shortness of Breath Cardiovascular: Reports: No Symptoms Gastrointestinal: Reports: No Symptoms Genitourinary: Reports: No Symptoms Musculoskeletal: Reports: No Symptoms Skin: Reports: No Symptoms Neurological: Reports: No Symptoms Psychiatric: Reports: No Symptoms - Patient Data Vitals - Most Recent: Last Vital Signs Temp 36.5 C 07/23/17 15:43 Pulse 109 H 07/23/17 15:43 Resp 22 H 07/23/17 15:43 BP 127/62 07/23/17 15:43 Pulse Ox 92 L 07/23/17 15:43 Weight - Most Recent: 66.088 kg I&O - Last 24 Hours: Intake & Output 07/23/17 07/23/17 07/23/17 06:59 14:59 22:59 Intake Total 1813 600 Balance 1813 600 Lab Results Last 24 Hours: Laboratory Results - last 24 hr 07/23/17 Range/Units 13:00 Lactic Acid 2.9 H (0.4-2.0) mmol/L Med Orders - Current: Current Medications Acetaminophen (Tylenol) 650 mg PO Q4H PRN PRN Reason: Pain Last Admin: 07/23/17 10:03 Dose: 650 mg Albuterol (Proventil Neb Soln) 2.5 mg NEB Q4H PRN PRN Reason: Shortness of Breath Last Admin: 07/23/17 14:38 Dose: 2.5 mg Albuterol/Ipratropium (Duoneb 3.0-0.5 Mg/3 Ml) 3 ml NEB QIDRT [facility] Last Admin: 07/23/17 10:05 Dose: 3 ml Budesonide/Formoterol Fumarate (Symbicort 160-4.5 Mcg) 0 gm INH BID [facility] Last Admin: 07/23/17 08:00 Dose: 2 puff Buspirone HCl (Buspar) 5 mg PO BID [facility] Last Admin: 07/23/17 08:47 Dose: 5 mg Hydralazine HCl (Apresoline) 20 mg IVPUSH Q6H PRN PRN Reason: Hypertension Last Admin: 07/22/17 14:40 Dose: 20 mg Sodium Chloride (Normal Saline) 1,000 mls @ 75 mls/hr IV ASDIRECTED [facility] Last Admin: 07/23/17 04:01 Dose: 75 mls/hr Levofloxacin/Dextrose 750 mg/ (Premix) 150 mls @ 100 mls/hr IV Q24H [facility] Latanoprost (Xalatan 0.005% Ophth Soln) 0 ml EYEBOTH BEDTIME [facility] Last Admin: 07/22/17 20:37 Dose: 1 drop Lorazepam (Ativan) 0.5 mg PO BID [facility] Last Admin: 07/23/17 08:47 Dose: 0.5 mg Lorazepam (Ativan) 0.5 mg PO Q4H PRN PRN Reason: anxiety/SOB Magnesium Oxide (Magnesium Oxide) 400 mg PO BID [facility] Last Admin: 07/23/17 08:47 Dose: 400 mg Methylprednisolone Sodium Succinate (Solu-Medrol) 125 mg IVPUSH Q6H [facility] Last Admin: 07/23/17 14:54 Dose: 125 mg Metoprolol Succinate (Toprol Xl) 25 mg PO DAILY [facility] Last Admin: 07/23/17 08:47 Dose: 25 mg Metoprolol Tartrate (Lopressor) 5 mg IVPUSH Q6H PRN PRN Reason: heart rate Guaifenesin [Mucinex ] Er 600 MgOwn Med 1,200 mg PO BID [facility] Last Admin: 07/23/17 08:47 Dose: 1,200 mg Roflumilast 500 Mcg* (*Own Med) 500 mcg PO DAILY [facility] Last Admin: 07/23/17 08:48 Dose: 500 mcg Umeclidinium [place] (Incruse Ellipta)) 1 Puff)Own Med 1 puff INH DAILY [facility] Last Admin: 07/23/17 08:00 Dose: 1 puff Oxymetazoline HCl (Afrin Original 0.05% Nasal [place]) 0 ml NASBOTH DAILY PRN PRN Reason: Nasal Dryness Pantoprazole Sodium (Protonix) 40 mg PO BID [facility] Last Admin: 07/23/17 08:45 Dose: 40 mg Polyethylene Glycol (Miralax) 17 gm PO DAILY [facility] Last Admin: 07/23/17 08:48 Dose: Not Given Saccharomyces Boulardii (Florastor) 250 mg PO BID [facility] Last Admin: 07/23/17 08:45 Dose: 250 mg Temazepam (Restoril) 7.5 mg PO BEDTIME PRN PRN Reason: Sleep Discontinued Medications Acetaminophen (Tylenol) 650 mg PO NOW ONE Stop: 07/21/17 17:45 Last Admin: 07/21/17 18:16 Dose: 650 mg Acetaminophen (Tylenol) 650 mg PO Q6H PRN PRN Reason: Pain/Fever Last Admin: 07/22/17 12:37 Dose: 650 mg Albuterol/Ipratropium (Duoneb 3.0-0.5 Mg/3 Ml) 3 ml NEB ONETIME ONE Stop: 07/21/17 16:23 Last Admin: 07/21/17 16:31 Dose: 3 ml Diphenhydramine HCl (Benadryl) 50 mg IVPUSH ONETIME ONE Stop: 07/21/17 19:04 Last Admin: 07/21/17 19:24 Dose: 50 mg Enoxaparin Sodium (Lovenox) 40 mg SUBCUT DAILY [facility] Last Admin: 07/23/17 08:47 Dose: Not Given Famotidine (Pepcid) 20 mg IVPUSH ONETIME ONE Stop: 07/21/17 19:04 Last Admin: 07/21/17 19:28 Dose: 20 mg Sodium Chloride (Normal Saline) 100 mls @ 65 mls/hr IV ASDIRECTED [facility] Last Admin: 07/21/17 19:48 Dose: 65 mls/hr Levofloxacin/Dextrose 750 mg/ (Premix) 150 mls @ 100 mls/hr IV ONETIME ONE Stop: 07/22/17 00:29 Last Admin: 07/21/17 23:38 Dose: 100 mls/hr Magnesium Sulfate 2 gm/ Premix 50 mls @ 25 mls/hr IV ONETIME ONE Stop: 07/23/17 12:02 Last Admin: 07/23/17 11:11 Dose: 25 mls/hr Iopamidol (Isovue-370 (76%)) 100 ml IVPUSH ONETIME ONE Stop: 07/21/17 19:12 Last Admin: 07/21/17 19:48 Dose: 100 ml Lorazepam (Ativan) 0.5 mg IVPUSH ONETIME ONE Stop: 07/21/17 17:30 Last Admin: 07/21/17 17:35 Dose: 0.5 mg Lorazepam (Ativan) 0.5 mg PO Q4H PRN PRN Reason: anxiety/SOB Last Admin: 07/22/17 12:59 Dose: 0.5 mg Lorazepam (Ativan) 1 mg IVPUSH ONETIME ONE Stop: 07/22/17 13:53 Last Admin: 07/22/17 14:01 Dose: 1 mg Methylprednisolone Sodium Succinate (Solu-Medrol) 125 mg IVPUSH ONETIME ONE Stop: 07/21/17 16:23 Last Admin: 07/21/17 16:30 Dose: 125 mg Methylprednisolone Sodium Succinate (Solu-Medrol) 125 mg IVPUSH ONETIME ONE Stop: 07/21/17 19:04 Last Admin: 07/21/17 19:29 Dose: 125 mg Sodium Chloride (Saline Flush) 10 ml FLUSH ASDIRECTED PRN PRN Reason: Keep Vein Open Last Admin: 07/21/17 16:30 Dose: 10 ml Sodium Chloride (Saline Flush) 10 ml FLUSH ONETIME PRN PRN Reason: IV FLUSH Last Admin: 07/21/17 19:48 Dose: 10 ml - Exam Quality Assessment: DVT Prophylaxis General: Alert, Oriented, No Acute Distress HEENT: Pupils Equal, Pupils Reactive, EOMI Neck: Trachea Midline, No JVD Lungs: Normal Respiratory Effort, Decreased Breath Sounds, Wheezing Cardiovascular: Regular Rate, Tachycardia GI/Abdominal Exam: Normal Bowel Sounds, Soft, Non-Tender, No Organomegaly, No Distention (Male) Exam: Deferred Back Exam: Normal Inspection Extremities: Normal Inspection Skin: Warm Neurological: No New Focal Deficit, Normal Gait, Normal Speech Psy/Mental Status: Alert, Normal Affect, Normal Mood - Problem List & Annotations (1) COPD (chronic obstructive pulmonary disease) SNOMED Code(s): 95140932 Code(s): J44.9 - CHRONIC OBSTRUCTIVE PULMONARY DISEASE, UNSPECIFIED Status : Acute Current Visit: Yes (2) COPD exacerbation SNOMED Code(s): 879765698200928 Code(s): J44.1 - CHRONIC OBSTRUCTIVE PULMONARY DISEASE W (ACUTE) EXACERBATION Status: Acute Current Visit: Yes (3) Hyponatremia SNOMED Code(s): 88063581 Code(s): E87.1 - HYPO-OSMOLALITY AND HYPONATREMIA Status: Acute Current Visit: Yes (4) Hyponatremia SNOMED Code(s): 82303331 Code(s): E87.1 - HYPO-OSMOLALITY AND HYPONATREMIA Status: Acute Priority : High Current Visit: No (5) Hypoxemia SNOMED Code(s): 738094399 Code(s): R09.02 - HYPOXEMIA Status: Acute Current Visit: No - Problem List Review Problem List Initiated/Reviewed/Updated: Yes - My Orders Last 24 Hours: My Active Orders 07/23/17 00:00 Admission Status [Patient Status] [ADT] Routine 07/23/17 12:25 Antiembolic Devices [RC] PER UNIT ROUTINE FRANK Hose [Antiembolic Hose] [OM.PC] Routine 07/23/17 21:00 Levofloxacin/Dextrose 5%-Water [Levaquin in D5W 750 MG/150 ML] 750 mg Premix Bag 1 bag IV Q24H 07/24/17 09:00 CXR [Chest 2V] [CR] Routine - Plan Plan:: Impression: Acute exacerbation of COPD End stage COPD; O2 and steroid dependent Query acute viral infection Hypoxemia Hyponatremia Chronic HTN GERDAnxiety Depression Crohn's disease Plan: Empiric ATB Viral/resp panel CK: Mycoplasma; Strep pneumo IV steroids-->start taper Daily Labs Home meds DVT/GI prophylaxis
[2017-07-23] MEDS ORDERED: Levofloxacin/Dextrose 5%-Water 750 MG in Premix Bag 1 BAG IV SCH (21:00)
[2017-07-23] MEDS: Latanoprost 0.005% Ophth Soln 2.5 ML Bottle**OWN MED EYEBOTH SCH (21:35)
[2017-07-24] MEDS: methylPREDNISolone Sodium Succinate 125 MG/2 ML SDV IVPUSH SCH ×3 (01:54→16:14)
[2017-07-24] MEDS ORDERED: traZODone 50 MG Tab PO PRN (01:59)
[2017-07-24] MEDS: Albuterol/Ipratropium 3.0-0.5 MG/3 ML Neb Soln NEB SCH ×4 (06:41→21:07)
[2017-07-24] MEDS ORDERED: LORazepam 0.5 MG Tab PO ONE (07:53)
[2017-07-24] MEDS: Sodium Chloride 0.9% 1,000 ML IV SCH ×3 (07:54→20:48)
[2017-07-24] MEDS ORDERED: Metoprolol Succinate 25 MG Tab.ER PO ONE (07:56)
[2017-07-24] MEDS: BUDESONIDE INH SCH ×2 (09:36→21:08)
[2017-07-24] MEDS: UMECLIDINIUM BROMIDE INH SCH (09:36)
[2017-07-24] MEDS: FORMOTEROL INH SCH ×2 (09:36→21:08)
[2017-07-24] MEDS: LORazepam 0.5 MG Tab PO SCH ×2 (10:16→21:03)
[2017-07-24] MEDS: busPIRone 5 MG Tab PO SCH ×2 (10:17→20:54)
[2017-07-24] MEDS: Saccharomyces Boulardii (Probiotic) 250 MG Cap PO SCH ×2 (10:18→20:52)
[2017-07-24] MEDS: GUAIFENESIN 600 MG PO SCH ×2 (10:19→23:05)
[2017-07-24] MEDS: Magnesium Oxide 400 MG Tab PO SCH ×2 (10:20→20:54)
[2017-07-24] MEDS: Polyethylene Glycol 3350 Powder 17 GM Packet PO SCH (10:20)
--- NOTE | 2017-07-24 10:22 | CR ---
Chest: Two views of the chest were obtained. Comparison: Prior chest CT of 07/21/17 and chest x-ray of 07/21/17. Heart size and mediastinum are normal. Lungs are hyperinflated compatible with emphysematous change. Slight scarring is noted within the upper right lung. Lung markings are slightly increased which appear stable. Bony structures are osteopenic. Impression: 1. Emphysematous changes and other incidental findings. Nothing acute is appreciated. Diagnostic code #2
[2017-07-24] MEDS: Pantoprazole 40 MG Tab.CR**OWN MED PO SCH ×2 (10:23→20:52)
[2017-07-24] MEDS: ROFLUMILAST 500 MCG PO SCH (10:24)
[2017-07-24] MEDS: Metoprolol Succinate 25 MG Tab.ER PO SCH (10:29)
[2017-07-24] MEDS ORDERED: Morphine 15 MG Tab PO PRN (10:33)
--- NOTE | 2017-07-24 10:41 | PCM.PN ---
- General Info Date of Service: 07/24/17 Admission Dx/Problem (Free Text): Admission Diagnosis/Problem Admission Diagnosis/Problem COPD, Moderate chronic obstructive pulmonary disease Gerald is seen this morning resting in bed. Did not sleep well last night. Is coughing but "still can't get anything up". Feels weak and tired. No other complaints of pain. Decreased appetite for weeks. Functional Status: Reports: Pain Controlled, Tolerating Diet (decreased appetite ), Ambulating, Urinating, Incentive Spirometry (and FV) - Review of Systems General: Reports: Weakness, Fatigue, Malaise. Denies: Chills, Appetite HEENT: Reports: No Symptoms Pulmonary: Reports: Shortness of Breath, Cough, Wheezing. Denies: Pleuritic Chest Pain, Sputum, Hemoptysis Cardiovascular: Reports: Dyspnea on Exertion. Denies: Chest Pain, Palpitations Gastrointestinal: Reports: No Symptoms Genitourinary: Reports: No Symptoms - Patient Data Vitals - Most Recent: Last Vital Signs Temp 97.9 F 07/24/17 03:23 Pulse 118 H 07/24/17 10:29 Resp 28 H 07/24/17 09:24 BP 131/75 07/24/17 10:29 Pulse Ox 99 07/24/17 09:37 Weight - Most Recent: 148 lb 1.6 oz I&O - Last 24 Hours: Intake & Output 07/23/17 07/24/17 07/24/17 22:59 06:59 14:59 Intake Total 2133 550 210 Balance 2133 550 210 Lab Results Last 24 Hours: Laboratory Results - last 24 hr 07/23/17 07/24/17 Range/Units 13:00 10:17 WBC 12.13 H (4.23-9.07) K/mm3 RBC 4.13 L (4.63-6.08) M/mm3 Hgb 11.5 L (13.7-17.5) gm/L Hct 35.2 L (40.1-51.0) % MCV 85.2 (79.0-92.2) fl MCH 27.8 (25.7-32.2) pg MCHC 32.7 (32.2-35.5) g/dl RDW Std Deviation 46.2 H (35.1-43.9) fL Plt Count 278 (163-337) K/mm3 MPV 8.8 L (9.4-12.3) fl Neut % (Auto) 92.4 H (34.0-67.9) % Lymph % (Auto) 2.0 L (21.8-53.1) % [place] % (Auto) 5.3 (5.3-12.2) % Eos % (Auto) 0 L (0.8-7.0) Baso % (Auto) 0.1 (0.1-1.2) % Neut # (Auto) 11.21 H (1.78-5.38) K/mm3 Lymph # (Auto) 0.24 L (1.32-3.57) K/mm3 [place] # (Auto) 0.64 (0.30-0.82) K/mm3 Eos # (Auto) 0.00 L (0.04-0.54) K/mm3 Baso # (Auto) 0.01 (0.01-0.08) K/mm3 Lactic Acid 2.9 H (0.4-2.0) mmol/L Med Orders - Current: Current Medications Acetaminophen (Tylenol) 650 mg PO Q4H PRN PRN Reason: Pain Last Admin: 07/23/17 21:57 Dose: 650 mg Albuterol (Proventil Neb Soln) 2.5 mg NEB Q4H PRN PRN Reason: Shortness of Breath Last Admin: 07/23/17 14:38 Dose: 2.5 mg Albuterol/Ipratropium (Duoneb 3.0-0.5 Mg/3 Ml) 3 ml NEB QIDRT [facility] Last Admin: 07/24/17 06:41 Dose: 3 ml Budesonide/Formoterol Fumarate (Symbicort 160-4.5 Mcg) 0 gm INH BID [facility] Last Admin: 07/24/17 09:36 Dose: 2 puff Buspirone HCl (Buspar) 5 mg PO BID [facility] Last Admin: 07/24/17 10:17 Dose: 5 mg Hydralazine HCl (Apresoline) 20 mg IVPUSH Q6H PRN PRN Reason: Hypertension Last Admin: 07/22/17 14:40 Dose: 20 mg Sodium Chloride (Normal Saline) 1,000 mls @ 75 mls/hr IV ASDIRECTED [facility] Last Admin: 07/24/17 07:54 Dose: 75 mls/hr Levofloxacin/Dextrose 750 mg/ (Premix) 150 mls @ 100 mls/hr IV Q24H [facility] Last Admin: 07/23/17 21:37 Dose: 100 mls/hr Latanoprost (Xalatan 0.005% Ophth Soln) 0 ml EYEBOTH BEDTIME [facility] Last Admin: 07/23/17 21:35 Dose: 1 drop Lorazepam (Ativan) 0.5 mg PO BID [facility] Last Admin: 07/24/17 10:16 Dose: 0.5 mg Lorazepam (Ativan) 0.5 mg PO Q4H PRN PRN Reason: anxiety/SOB Magnesium Oxide (Magnesium Oxide) 400 mg PO BID [facility] Last Admin: 07/24/17 10:20 Dose: 400 mg Methylprednisolone Sodium Succinate (Solu-Medrol) 125 mg IVPUSH Q8H [facility] Last Admin: 07/24/17 10:27 Dose: 125 mg Metoprolol Succinate (Toprol Xl) 25 mg PO DAILY [facility] Last Admin: 07/24/17 10:29 Dose: 25 mg Metoprolol Tartrate (Lopressor) 5 mg IVPUSH Q6H PRN PRN Reason: heart rate Morphine Sulfate (Morphine) 15 mg PO BID [facility] Morphine Sulfate (Morphine) 15 mg PO Q8HR PRN PRN Reason: pain Guaifenesin [Mucinex ] Er 600 MgOwn Med 1,200 mg PO BID [facility] Last Admin: 07/24/17 10:19 Dose: 1,200 mg Roflumilast 500 Mcg* (*Own Med) 500 mcg PO DAILY [facility] Last Admin: 07/24/17 10:24 Dose: 500 mcg Umeclidinium [place] (Incruse Ellipta)) 1 Puff)Own Med 1 puff INH DAILY [facility] Last Admin: 07/24/17 09:36 Dose: 1 puff Oxymetazoline HCl (Afrin Original 0.05% Nasal [place]) 0 ml NASBOTH DAILY PRN PRN Reason: Nasal Dryness Pantoprazole Sodium (Protonix) 40 mg PO BID [facility] Last Admin: 07/24/17 10:23 Dose: 40 mg Polyethylene Glycol (Miralax) 17 gm PO DAILY [facility] Last Admin: 07/24/17 10:20 Dose: Not Given Saccharomyces Boulardii (Florastor) 250 mg PO BID [facility] Last Admin: 07/24/17 10:18 Dose: 250 mg Temazepam (Restoril) 7.5 mg PO BEDTIME PRN PRN Reason: Sleep Last Admin: 07/23/17 21:28 Dose: 7.5 mg Trazodone HCl (Trazodone) 50 mg PO BEDTIME PRN PRN Reason: Sleep Last Admin: 07/24/17 02:06 Dose: 50 mg Discontinued Medications Acetaminophen (Tylenol) 650 mg PO NOW ONE Stop: 07/21/17 17:45 Last Admin: 07/21/17 18:16 Dose: 650 mg Acetaminophen (Tylenol) 650 mg PO Q6H PRN PRN Reason: Pain/Fever Last Admin: 07/22/17 12:37 Dose: 650 mg Albuterol/Ipratropium (Duoneb 3.0-0.5 Mg/3 Ml) 3 ml NEB ONETIME ONE Stop: 07/21/17 16:23 Last Admin: 07/21/17 16:31 Dose: 3 ml Diphenhydramine HCl (Benadryl) 50 mg IVPUSH ONETIME ONE Stop: 07/21/17 19:04 Last Admin: 07/21/17 19:24 Dose: 50 mg Enoxaparin Sodium (Lovenox) 40 mg SUBCUT DAILY [facility] Last Admin: 07/23/17 08:47 Dose: Not Given Famotidine (Pepcid) 20 mg IVPUSH ONETIME ONE Stop: 07/21/17 19:04 Last Admin: 07/21/17 19:28 Dose: 20 mg Sodium Chloride (Normal Saline) 100 mls @ 65 mls/hr IV ASDIRECTED [facility] Last Admin: 07/21/17 19:48 Dose: 65 mls/hr Levofloxacin/Dextrose 750 mg/ (Premix) 150 mls @ 100 mls/hr IV ONETIME ONE Stop: 07/22/17 00:29 Last Admin: 07/21/17 23:38 Dose: 100 mls/hr Magnesium Sulfate 2 gm/ Premix 50 mls @ 25 mls/hr IV ONETIME ONE Stop: 07/23/17 12:02 Last Admin: 07/23/17 11:11 Dose: 25 mls/hr Iopamidol (Isovue-370 (76%)) 100 ml IVPUSH ONETIME ONE Stop: 07/21/17 19:12 Last Admin: 07/21/17 19:48 Dose: 100 ml Lorazepam (Ativan) 0.5 mg IVPUSH ONETIME ONE Stop: 07/21/17 17:30 Last Admin: 07/21/17 17:35 Dose: 0.5 mg Lorazepam (Ativan) 0.5 mg PO Q4H PRN PRN Reason: anxiety/SOB Last Admin: 07/22/17 12:59 Dose: 0.5 mg Lorazepam (Ativan) 1 mg IVPUSH ONETIME ONE Stop: 07/22/17 13:53 Last Admin: 07/22/17 14:01 Dose: 1 mg Methylprednisolone Sodium Succinate (Solu-Medrol) 125 mg IVPUSH ONETIME ONE Stop: 07/21/17 16:23 Last Admin: 07/21/17 16:30 Dose: 125 mg Methylprednisolone Sodium Succinate (Solu-Medrol) 125 mg IVPUSH ONETIME ONE Stop: 07/21/17 19:04 Last Admin: 07/21/17 19:29 Dose: 125 mg Methylprednisolone Sodium Succinate (Solu-Medrol) 125 mg IVPUSH Q6H [facility] Last Admin: 07/23/17 14:54 Dose: 125 mg Sodium Chloride (Saline Flush) 10 ml FLUSH ASDIRECTED PRN PRN Reason: Keep Vein Open Last Admin: 07/21/17 16:30 Dose: 10 ml Sodium Chloride (Saline Flush) 10 ml FLUSH ONETIME PRN PRN Reason: IV FLUSH Last Admin: 07/21/17 19:48 Dose: 10 ml - Exam Quality Assessment: Supplemental Oxygen, DVT Prophylaxis General: Alert, Oriented, Cooperative, No Acute Distress HEENT: Pupils Equal, EOMI, Mucous Membr. Moist/[place] Neck: Supple Lungs: Normal Respiratory Effort, Decreased Breath Sounds, Wheezing Cardiovascular: Regular Rate, Regular Rhythm GI/Abdominal Exam: Normal Bowel Sounds, Soft, Non-Tender (Male) Exam: Deferred Extremities: Normal Inspection, No Pedal Edema, Normal Capillary Refill Neurological: No New Focal Deficit Psy/Mental Status: Alert, Normal Affect, Normal Mood - Problem List & Annotations (1) COPD exacerbation SNOMED Code(s): 565508692732751 Code(s): J44.1 - CHRONIC OBSTRUCTIVE PULMONARY DISEASE W (ACUTE) EXACERBATION Status: Acute Priority: High Current Visit: Yes (2) Anemia SNOMED Code(s): 449561062 Code(s): D64.9 - ANEMIA, UNSPECIFIED Status: Chronic Priority: Medium Current Visit: Yes Qualifiers: Anemia type: unspecified type Qualified Code(s): D64.9 - Anemia, unspecified (3) Generalized weakness SNOMED Code(s): 08059764 Code(s): R53.1 - WEAKNESS Status: Acute Priority: High Current Visit: Yes - Problem List Review Problem List Initiated/Reviewed/Updated: Yes - My Orders Last 24 Hours: My Active Orders 07/24/17 10:17 BASIC METABOLIC PANEL,BMP [CHEM] Routine C-REACTIVE PROTEIN [CHEM] Routine MAGNESIUM [CHEM] Routine 07/24/17 10:33 Morphine 15 mg PO Q8HR PRN 07/24/17 10:40 RT Incentive Spirometry [RC] Q2HWA RT Flutter Valve Therapy [RT Acapella] [RESPCARE] Stat 07/24/17 10:45 Morphine 15 mg PO BID - Plan Plan:: Impression/Plan: Acute exacerbation of COPD; End stage COPD; O2 and steroid dependent -Supplemental oxygen PRN -RT/Nebs/IS/FV -Solumedrol IV- start taper today -Zithromax for antiinflammatory- PO x 3 days then DC -Mucinex BID -DC IV levaquin as CXR negative -Repeat CXR today with emphysematous changes, no evicence of infiltrates/PNA -Resume home morphine dosing; scheduled and PRN for dyspnea (he has been without this x 3 days, likely cause of tachycardia and increased anxiety) Query acute viral infection -Negative flu screen- ordered resp viral panel -negative mycoplasma -Strep pneumo antigen pending -Has been treated with IV levaquin prophylactically -Elevated lactic acid at 2.9--repeat this am Hypoxemia--improving; less supplemental oxygen requirements -Tx as above Hyponatremia -Follow with daily labs -Consider thermotabs if worsening or symptomatic Anemia- ? acute on chronic -Hgb 11.7-->11.5 -Check iron studies, B12, folate and occult Generalized weakness with decreased appetite -Head Cager consult/supplement -TSH and vit D levels -PT/OT consults Chronic: cont home meds HTN- stable GERD- Cont PPI Anxiety Depression Crohn's disease- intermittent loose stools- c-diff is negative Other: Daily am labs Cont Home meds PT/OT DVT/GI prophylaxis DC plan- Plan at least 2-3 more days, steroid taper, follow hyponatremia. PCP is Dr. Campo with [facility]
[2017-07-24] MEDS: Azithromycin 250 MG Tab PO SCH (11:40)
--- NOTE | 2017-07-24 12:40 | PCM.SN ---
- Free Text/Narrative Note: Repeat lactic acid returned at 3.4, up from 2.9 yesterday. Ordered 2L NS wide open then rate to 150cc thereafter; communicated orders to primary nurse. Also reviewed POC with Dr. Crane. Patient is afebrile, b/p acceptable, he has been tachycardic with rates into 110 's today. Repeat CXR this morning was unremarkable showing only emphysematous changes. PE was unremarkable this am aside from decreased lung sounds. Will cont close monitoring.
[2017-07-24] MEDS: Sodium Chloride 0.9% 1,000 ML IV ONE ×2 (12:55→14:02)
[2017-07-24] MEDS ORDERED: Morphine 2 MG/ML Syringe IVPUSH ONE (14:39)
[2017-07-24] MEDS: Morphine 15 MG Tab PO SCH ×2 (14:46→20:53)
[2017-07-24] MEDS ORDERED: Temazepam 7.5 MG Cap PO PRN (16:12)
[2017-07-24] MEDS: Latanoprost 0.005% Ophth Soln 2.5 ML Bottle**OWN MED EYEBOTH SCH (21:01)
[2017-07-24] MEDS ORDERED: LORazepam 2 MG/ML SDV IVPUSH ONE (21:35)
[2017-07-24] MEDS: guaiFENesin 600 MG Tab.ER PO SCH (21:44)
[2017-07-24] MEDS: Oxymetazoline 0.05% Nasal Spray 15 ML Bottle NASBOTH PRN (21:54)
[2017-07-24] MEDS ORDERED: LORazepam 0.5 MG Tab PO PRN (22:38)
[2017-07-25] MEDS: methylPREDNISolone Sodium Succinate 125 MG/2 ML SDV IVPUSH SCH ×2 (01:38→08:46)
[2017-07-25] MEDS: Sodium Chloride 0.9% 1,000 ML IV SCH (03:26)
[2017-07-25] MEDS: Albuterol/Ipratropium 3.0-0.5 MG/3 ML Neb Soln NEB SCH ×4 (05:47→20:24)
[2017-07-25] MEDS ORDERED: Formoterol/Mometasone 200-5 MCG 8.8 GM Inhaler IH SCH (06:00)
[2017-07-25] MEDS: Pantoprazole 40 MG Tab.CR PO SCH ×2 (07:43→16:00)
[2017-07-25] MEDS: Metoprolol Succinate 25 MG Tab.ER PO SCH (08:44)
[2017-07-25] MEDS: Morphine 15 MG Tab PO SCH ×3 (08:44→20:44)
[2017-07-25] MEDS: Azithromycin 250 MG Tab PO SCH (08:45)
[2017-07-25] MEDS: Saccharomyces Boulardii (Probiotic) 250 MG Cap PO SCH ×2 (08:46→20:46)
[2017-07-25] MEDS: guaiFENesin 600 MG Tab.ER PO SCH ×2 (08:46→20:45)
[2017-07-25] MEDS: Magnesium Oxide 400 MG Tab PO SCH ×2 (08:46→20:45)
[2017-07-25] MEDS: busPIRone 5 MG Tab PO SCH ×2 (08:46→20:45)
[2017-07-25] MEDS: Cholecalciferol (Vitamin D3) 1,000 Unit Tab PO SCH (08:46)
[2017-07-25] MEDS: LORazepam 0.5 MG Tab PO SCH ×2 (08:46→21:07)
[2017-07-25] MEDS: Polyethylene Glycol 3350 Powder 17 GM Packet PO SCH (08:48)
--- NOTE | 2017-07-25 08:51 | PCM.PN ---
- General Info Date of Service: 07/25/17 Admission Dx/Problem (Free Text): Admission Diagnosis/Problem Admission Diagnosis/Problem COPD, Moderate chronic obstructive pulmonary disease Subjective Update: Reassessed admission, qualifies for full admission, requires increase O2 as well as IV steroids Functional Status: Reports: Pain Controlled, Tolerating Diet, Ambulating, Urinating. Denies: New Symptoms - Review of Systems General: Reports: Fatigue. Denies: Fever, Weakness, Malaise, Chills HEENT: Reports: No Symptoms Pulmonary: Reports: Shortness of Breath, Cough Cardiovascular: Denies: Chest Pain Gastrointestinal: Denies: Abdominal Pain, Nausea, Vomiting Genitourinary: Reports: No Symptoms Musculoskeletal: Reports: No Symptoms Skin: Denies: Cyanosis, Diaphoresis, Rash Neurological: Denies: Confusion, Difficulty Walking, Weakness, Gait Disturbance Psychiatric: Denies: Depression, Anxiety, Agitation, Hallucinations Systems Review Comment:: No significant overnight or acute issues. He slept pretty good. He states "I slept really good for the first time, in a while". His breathing is about the same. He still complaints of congestion and not able to cough up phlegm. He is already on Mucinex 1200 mg po BID. He is afebrile w/o leukocytosis. - Patient Data Vitals - Most Recent: Last Vital Signs Temp 36.8 C 07/25/17 04:47 Pulse 105 H 07/25/17 04:47 Resp 16 07/25/17 04:47 BP 130/76 07/25/17 04:47 Pulse Ox 94 L 07/25/17 05:47 Weight - Most Recent: 71.305 kg I&O - Last 24 Hours: Intake & Output 07/24/17 07/25/17 07/25/17 22:59 06:59 14:59 Intake Total 4808 2330 Output Total 550 1750 Balance 4258 580 Lab Results Last 24 Hours: Laboratory Results - last 24 hr 07/24/17 07/24/17 07/24/17 Range/Units 10:17 10:17 10:17 WBC 12.13 H (4.23-9.07) K/mm3 RBC 4.13 L (4.63-6.08) M/mm3 Hgb 11.5 L (13.7-17.5) gm/L Hct 35.2 L (40.1-51.0) % MCV 85.2 (79.0-92.2) fl MCH 27.8 (25.7-32.2) pg MCHC 32.7 (32.2-35.5) g/dl RDW Std Deviation 46.2 H (35.1-43.9) fL Plt Count 278 (163-337) K/mm3 MPV 8.8 L (9.4-12.3) fl Neut % (Auto) 92.4 H (34.0-67.9) % Lymph % (Auto) 2.0 L (21.8-53.1) % [place] % (Auto) 5.3 (5.3-12.2) % Eos % (Auto) 0 L (0.8-7.0) Baso % (Auto) 0.1 (0.1-1.2) % Neut # (Auto) 11.21 H (1.78-5.38) K/mm3 Lymph # (Auto) 0.24 L (1.32-3.57) K/mm3 [place] # (Auto) 0.64 (0.30-0.82) K/mm3 Eos # (Auto) 0.00 L (0.04-0.54) K/mm3 Baso # (Auto) 0.01 (0.01-0.08) K/mm3 Manual Slide Review Abnormal smear Sodium 133 L (136-145) mEq/L Potassium 3.8 (3.5-5.1) mEq/L Chloride 100 (98-107) mEq/L Carbon Dioxide 23 (21-32) mEq/L Anion Gap 13.8 (5-15) BUN 17 (7-18) mg/dL Creatinine 1.1 (0.7-1.3) mg/dL Est Cr Clr Drug Dosing 50.04 mL/min Estimated GFR (MDRD) > 60 (>60) mL/min BUN/Creatinine Ratio 15.5 (14-18) Glucose 135 H (83-115) mg/dL Lactic Acid (0.4-2.0) mmol/L Calcium 8.4 L (8.5-10.1) mg/dL Magnesium 1.9 (1.8-2.4) mg/dl Iron (65-175) ug/dL TIBC (100-400) ug/dL % Saturation (20-55) % Transferrin (202-364) mg/dL C-Reactive Protein 0.9 (<1.0) mg/dL Vitamin B12 (193-986) pg/ml Vitamin D 25-Hydroxy (30-100) ng/mL Folate (8.6-58.9) ng/mL TSH 3rd Generation 1.922 (0.358-3.74) uIU/mL 07/24/17 07/24/17 07/24/17 Range/Units 10:17 11:15 12:32 WBC (4.23-9.07) K/mm3 RBC (4.63-6.08) M/mm3 Hgb (13.7-17.5) gm/L Hct (40.1-51.0) % MCV (79.0-92.2) fl MCH (25.7-32.2) pg MCHC (32.2-35.5) g/dl RDW Std Deviation (35.1-43.9) fL Plt Count (163-337) K/mm3 MPV (9.4-12.3) fl Neut % (Auto) (34.0-67.9) % Lymph % (Auto) (21.8-53.1) % [place] % (Auto) (5.3-12.2) % Eos % (Auto) (0.8-7.0) Baso % (Auto) (0.1-1.2) % Neut # (Auto) (1.78-5.38) K/mm3 Lymph # (Auto) (1.32-3.57) K/mm3 [place] # (Auto) (0.30-0.82) K/mm3 Eos # (Auto) (0.04-0.54) K/mm3 Baso # (Auto) (0.01-0.08) K/mm3 Manual Slide Review Sodium (136-145) mEq/L Potassium (3.5-5.1) mEq/L Chloride (98-107) mEq/L Carbon Dioxide (21-32) mEq/L Anion Gap (5-15) BUN (7-18) mg/dL Creatinine (0.7-1.3) mg/dL Est Cr Clr Drug Dosing mL/min Estimated GFR (MDRD) (>60) mL/min BUN/Creatinine Ratio (14-18) Glucose (83-115) mg/dL Lactic Acid 3.4 H (0.4-2.0) mmol/L Calcium (8.5-10.1) mg/dL Magnesium (1.8-2.4) mg/dl Iron 76 (65-175) ug/dL TIBC 220 (100-400) ug/dL % Saturation 35 (20-55) % Transferrin 176 L (202-364) mg/dL C-Reactive Protein (<1.0) mg/dL Vitamin B12 279 (193-986) pg/ml Vitamin D 25-Hydroxy 19 L (30-100) ng/mL Folate 24.3 (8.6-58.9) ng/mL TSH 3rd Generation (0.358-3.74) uIU/mL 07/25/17 07/25/17 07/25/17 Range/Units 06:35 06:35 06:35 WBC 8.89 (4.23-9.07) K/mm3 RBC 4.15 L (4.63-6.08) M/mm3 Hgb 11.5 L (13.7-17.5) gm/L Hct 35.7 L (40.1-51.0) % MCV 86.0 (79.0-92.2) fl MCH 27.7 (25.7-32.2) pg MCHC 32.2 (32.2-35.5) g/dl RDW Std Deviation 47.2 H (35.1-43.9) fL Plt Count 280 (163-337) K/mm3 MPV 8.8 L (9.4-12.3) fl Neut % (Auto) 93.0 H (34.0-67.9) % Lymph % (Auto) 2.4 L (21.8-53.1) % [place] % (Auto) 4.3 L (5.3-12.2) % Eos % (Auto) 0 L (0.8-7.0) Baso % (Auto) 0.0 L (0.1-1.2) % Neut # (Auto) 8.27 H (1.78-5.38) K/mm3 Lymph # (Auto) 0.21 L (1.32-3.57) K/mm3 [place] # (Auto) 0.38 (0.30-0.82) K/mm3 Eos # (Auto) 0.00 L (0.04-0.54) K/mm3 Baso # (Auto) 0.00 L (0.01-0.08) K/mm3 Manual Slide Review Abnormal smear Sodium 137 (136-145) mEq/L Potassium 4.4 (3.5-5.1) mEq/L Chloride 105 (98-107) mEq/L Carbon Dioxide 22 (21-32) mEq/L Anion Gap 14.4 (5-15) BUN 19 H (7-18) mg/dL Creatinine 1.0 (0.7-1.3) mg/dL Est Cr Clr Drug Dosing 57.93 mL/min Estimated GFR (MDRD) > 60 (>60) mL/min BUN/Creatinine Ratio 19.0 H (14-18) Glucose 115 (83-115) mg/dL Lactic Acid 1.6 (0.4-2.0) mmol/L Calcium 8.4 L (8.5-10.1) mg/dL Magnesium 2.2 (1.8-2.4) mg/dl Iron (65-175) ug/dL TIBC (100-400) ug/dL % Saturation (20-55) % Transferrin (202-364) mg/dL C-Reactive Protein 0.2 (<1.0) mg/dL Vitamin B12 (193-986) pg/ml Vitamin D 25-Hydroxy (30-100) ng/mL Folate (8.6-58.9) ng/mL TSH 3rd Generation (0.358-3.74) uIU/mL Bahman Results Last 24 Hours: Microbiology 07/24/17 20:10 Stool Occult Blood (BAHMAN) - Final Stool / Feces Med Orders - Current: Current Medications Acetaminophen (Tylenol) 650 mg PO Q4H PRN PRN Reason: Pain Last Admin: 07/23/17 21:57 Dose: 650 mg Albuterol (Proventil Neb Soln) 2.5 mg NEB Q4H PRN PRN Reason: Shortness of Breath Last Admin: 07/23/17 14:38 Dose: 2.5 mg Albuterol/Ipratropium (Duoneb 3.0-0.5 Mg/3 Ml) 3 ml NEB QIDRT ADRIANO Last Admin: 07/25/17 05:47 Dose: 3 ml Azithromycin (Zithromax) 500 mg PO DAILY [facility] Stop: 07/26/17 09:01 Last Admin: 07/24/17 11:40 Dose: 500 mg Budesonide/Formoterol Fumarate (Symbicort 160-4.5 Mcg) 0 gm INH BID [facility] Buspirone HCl (Buspar) 5 mg PO BID [facility] Last Admin: 07/24/17 20:54 Dose: 5 mg Cholecalciferol (Vitamin D3) 2,000 units PO DAILY [facility] Guaifenesin (Mucinex) 1,200 mg PO BID [facility] Last Admin: 07/24/17 21:44 Dose: 1,200 mg Hydralazine HCl (Apresoline) 20 mg IVPUSH Q6H PRN PRN Reason: Hypertension Last Admin: 07/22/17 14:40 Dose: 20 mg Sodium Chloride (Normal Saline) 1,000 mls @ 150 mls/hr IV ASDIRECTED [facility] Last Admin: 07/25/17 03:26 Dose: 150 mls/hr Latanoprost (Xalatan 0.005% Ophth Soln) 0 ml EYEBOTH BEDTIME [facility] Lorazepam (Ativan) 0.5 mg PO BID [facility] Last Admin: 07/24/17 21:03 Dose: Not Given Lorazepam (Ativan) 0.5 mg PO Q4H PRN PRN Reason: anxiety/SOB Magnesium Oxide (Magnesium Oxide) 400 mg PO BID [facility] Last Admin: 07/24/17 20:54 Dose: 400 mg Methylprednisolone Sodium Succinate (Solu-Medrol) 125 mg IVPUSH Q8H [facility] Last Admin: 07/25/17 01:38 Dose: 125 mg Metoprolol Succinate (Toprol Xl) 25 mg PO DAILY [facility] Last Admin: 07/24/17 10:29 Dose: 25 mg Metoprolol Tartrate (Lopressor) 5 mg IVPUSH Q6H PRN PRN Reason: heart rate Last Admin: 07/24/17 17:36 Dose: 5 mg Morphine Sulfate (Morphine) 15 mg PO TID [facility] Last Admin: 07/24/17 20:53 Dose: 15 mg Roflumilast 500 Mcg* (*Own Med) 500 mcg PO DAILY [facility] Last Admin: 07/24/17 10:24 Dose: 500 mcg Umeclidinium Vernal (Incruse Ellipta)) 1 Puff)Own Med 1 puff INH DAILY [facility] Last Admin: 07/24/17 09:36 Dose: 1 puff Oxymetazoline HCl (Afrin Original 0.05% Nasal [place]) 0 ml NASBOTH DAILY PRN PRN Reason: Nasal Dryness Last Admin: 07/24/17 21:54 Dose: 1 applic Pantoprazole Sodium (Protonix) 40 mg PO BID@0700,1700 [facility] Last Admin: 07/25/17 07:43 Dose: 40 mg Polyethylene Glycol (Miralax) 17 gm PO DAILY [facility] Last Admin: 07/24/17 10:20 Dose: Not Given Saccharomyces Boulardii (Florastor) 250 mg PO BID [facility] Last Admin: 07/24/17 20:52 Dose: 250 mg Temazepam (Restoril) 15 mg PO BEDTIME PRN PRN Reason: Sleep Discontinued Medications Acetaminophen (Tylenol) 650 mg PO NOW ONE Stop: 07/21/17 17:45 Last Admin: 07/21/17 18:16 Dose: 650 mg Acetaminophen (Tylenol) 650 mg PO Q6H PRN PRN Reason: Pain/Fever Last Admin: 07/22/17 12:37 Dose: 650 mg Albuterol/Ipratropium (Duoneb 3.0-0.5 Mg/3 Ml) 3 ml NEB ONETIME ONE Stop: 07/21/17 16:23 Last Admin: 07/21/17 16:31 Dose: 3 ml Budesonide/Formoterol Fumarate (Symbicort 160-4.5 Mcg) 0 gm INH BID [facility] Last Admin: 07/24/17 21:08 Dose: 2 puff Diphenhydramine HCl (Benadryl) 50 mg IVPUSH ONETIME ONE Stop: 07/21/17 19:04 Last Admin: 07/21/17 19:24 Dose: 50 mg Enoxaparin Sodium (Lovenox) 40 mg SUBCUT DAILY [facility] Last Admin: 07/23/17 08:47 Dose: Not Given Famotidine (Pepcid) 20 mg IVPUSH ONETIME ONE Stop: 07/21/17 19:04 Last Admin: 07/21/17 19:28 Dose: 20 mg Sodium Chloride (Normal Saline) 100 mls @ 65 mls/hr IV ASDIRECTED [facility] Last Admin: 07/21/17 19:48 Dose: 65 mls/hr Sodium Chloride (Normal Saline) 1,000 mls @ 75 mls/hr IV ASDIRECTED [facility] Last Admin: 07/24/17 07:54 Dose: 75 mls/hr Levofloxacin/Dextrose 750 mg/ (Premix) 150 mls @ 100 mls/hr IV ONETIME ONE Stop: 07/22/17 00:29 Last Admin: 07/21/17 23:38 Dose: 100 mls/hr Magnesium Sulfate 2 gm/ Premix 50 mls @ 25 mls/hr IV ONETIME ONE Stop: 07/23/17 12:02 Last Admin: 07/23/17 11:11 Dose: 25 mls/hr Levofloxacin/Dextrose 750 mg/ (Premix) 150 mls @ 100 mls/hr IV Q24H [facility] Last Admin: 07/23/17 21:37 Dose: 100 mls/hr Sodium Chloride (Normal Saline) 1,000 mls @ 999 mls/hr IV ONETIME ONE Stop: 07/24/17 13:35 Last Admin: 07/24/17 14:02 Dose: 999 mls/hr Iopamidol (Isovue-370 (76%)) 100 ml IVPUSH ONETIME ONE Stop: 07/21/17 19:12 Last Admin: 07/21/17 19:48 Dose: 100 ml Latanoprost (Xalatan 0.005% Ophth Soln) 0 ml EYEBOTH BEDTIME [facility] Last Admin: 07/24/17 21:01 Dose: 1 drop Lorazepam (Ativan) 0.5 mg IVPUSH ONETIME ONE Stop: 07/21/17 17:30 Last Admin: 07/21/17 17:35 Dose: 0.5 mg Lorazepam (Ativan) 0.5 mg PO Q4H PRN PRN Reason: anxiety/SOB Last Admin: 07/22/17 12:59 Dose: 0.5 mg Lorazepam (Ativan) 0.5 mg PO Q4H PRN PRN Reason: anxiety/SOB Lorazepam (Ativan) 1 mg IVPUSH ONETIME ONE Stop: 07/22/17 13:53 Last Admin: 07/22/17 14:01 Dose: 1 mg Lorazepam (Ativan) 1 mg IVPUSH ONETIME ONE Stop: 07/24/17 21:36 Last Admin: 07/24/17 21:51 Dose: 1 mg Lorazepam (Ativan) 0.5 mg PO .STK-MED ONE Stop: 07/24/17 07:54 Methylprednisolone Sodium Succinate (Solu-Medrol) 125 mg IVPUSH ONETIME ONE Stop: 07/21/17 16:23 Last Admin: 07/21/17 16:30 Dose: 125 mg Methylprednisolone Sodium Succinate (Solu-Medrol) 125 mg IVPUSH ONETIME ONE Stop: 07/21/17 19:04 Last Admin: 07/21/17 19:29 Dose: 125 mg Methylprednisolone Sodium Succinate (Solu-Medrol) 125 mg IVPUSH Q6H [facility] Last Admin: 07/23/17 14:54 Dose: 125 mg Metoprolol Succinate (Toprol Xl) 25 mg PO .STK-MED ONE Stop: 07/24/17 07:57 Mometasone Furoate/Formoterol Fumar (Dulera 200-5 Mcg) 2 puff IH BIDRT [facility] Last Admin: 07/25/17 05:47 Dose: Not Given Morphine Sulfate (Morphine) 15 mg PO Q8H PRN PRN Reason: pain Morphine Sulfate (Morphine) 1.5 mg IVPUSH ONETIME ONE Stop: 07/24/17 14:40 Last Admin: 07/24/17 14:58 Dose: 1.5 mg Guaifenesin [Mucinex ] Er 600 MgOwn Med 1,200 mg PO BID [facility] Last Admin: 07/24/17 23:05 Dose: Not Given Pantoprazole Sodium (Protonix) 40 mg PO BID [facility] Last Admin: 07/24/17 20:52 Dose: 40 mg Sodium Chloride (Saline Flush) 10 ml FLUSH ASDIRECTED PRN PRN Reason: Keep Vein Open Last Admin: 07/21/17 16:30 Dose: 10 ml Sodium Chloride (Saline Flush) 10 ml FLUSH ONETIME PRN PRN Reason: IV FLUSH Last Admin: 07/21/17 19:48 Dose: 10 ml Temazepam (Restoril) 7.5 mg PO BEDTIME PRN PRN Reason: Sleep Last Admin: 07/23/17 21:28 Dose: 7.5 mg Trazodone HCl (Trazodone) 50 mg PO BEDTIME PRN PRN Reason: Sleep Last Admin: 07/24/17 02:06 Dose: 50 mg - Exam Quality Assessment: Supplemental Oxygen General: Alert, Oriented, Cooperative, No Acute Distress HEENT: Pupils Equal, Pupils Reactive, EOMI, Mucous Membr. Moist/[place] Neck: Supple, Trachea Midline, No JVD, No Thyromegaly, Other (neck accessory muscles use). No: JVD Lungs: Normal Respiratory Effort, Other (Poor aeration. Unable to hear air entry on inspiration and expiration) Cardiovascular: Regular Rate, Regular Rhythm GI/Abdominal Exam: Normal Bowel Sounds, Soft, Non-Tender, No Organomegaly, No Distention, No Abnormal Bruit, Abnormal Bowel Sounds (Male) Exam: Deferred Back Exam: Normal Inspection, Decreased Range of Motion Extremities: Normal Inspection, Normal Range of Motion, Non-Tender, No Pedal Edema, Normal Capillary Refill Peripheral Pulses: 2+: Dorsalis Pedis (L), Dorsalis Pedis (R) Skin: Warm, Dry, Intact Neurological: No New Focal Deficit Psy/Mental Status: Alert, Normal Affect, Normal Mood - Problem List Review Problem List Initiated/Reviewed/Updated: Yes - My Orders Last 24 Hours: My Active Orders 07/24/17 16:12 Temazepam [Restoril] 15 mg PO BEDTIME PRN - Plan Plan:: Impression/Plan: Acute Exacerbation of COPD; End stage COPD; O2 and steroid dependent -Supplemental oxygen PRN -RT/Nebs/IS/FV -Solumedrol IV- cut down to 60 mg IV TID -Zithromax for anti-inflammatory agent- PO x 3 days then DC -Mucinex 1200 mg po BID -DC IV levaquin as CXR negative -Repeat CXR today with emphysematous changes, no evicence of infiltrates/PNA -Resume home morphine dosing; scheduled and PRN for dyspnea (he has been without this x 3 days, likely cause of tachycardia and increased anxiety) Query Acute Viral Infection -Negative flu screen and resp viral panel -Negative mycoplasma -Strep pneumo antigen pending; Sputum Cx-normal олег -Has been treated with IV levaquin prophylactically -Elevated lactic acid at 2.9--> now 1.6 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 acute on chronic -Hgb 11.7-->now 11.5 -Check iron studies, B12, folate and occult Generalized weakness with decreased appetite -Director Of Cardiopulmonary Services consult/supplement -TSH-normal -Vit D 19 (low) -Continue PT/OT Vit D Deficiency -Vit D level is 19 (30-100) -Vit D 2 50,000 units po daily for 4 weeks and then monthly thereafter End of Life Care -He understood his medical conditions are now terminal -He has had 4 visits to ED last year -He is not receptive at this point Resolved: Hyponatremia -Na 133--> 137 -Follow with daily labs -Consider thermotabs if worsening or symptomatic Chronic: cont home meds HTN- stable GERD- Cont PPI Anxiety Depression Crohn's disease- intermittent loose stools- c-diff is negative Other: He is clinically stable Daily am labs Discontinue IVF Continue PT/OT SW consult DVT/GI prophylaxis Consider of life care May benefit with pulmo rehab after discharge Additional orders as above Code status: DNR PCP is Dr. Campo with [facility]. LOS > 96 hrs due to slow response to treatment
--- NOTE | 2017-07-25 08:55 | PCM.PN ---
- General Info Date of Service: 07/25/17 Admission Dx/Problem (Free Text): Admission Diagnosis/Problem Admission Diagnosis/Problem COPD, Moderate chronic obstructive pulmonary disease Gerald is seen this morning resting in bed. Did not sleep well last night. Is coughing but "still can't get anything up". Feels weak and tired. No other complaints of pain. Decreased appetite for weeks. Subjective Update: Reassessed admission, qualifies for full admission, requires increase O2 as well as IV steroids Functional Status: Reports: Pain Controlled, Tolerating Diet, Urinating. Denies : New Symptoms - Patient Data Vitals - Most Recent: Last Vital Signs Temp 36.8 C 07/25/17 04:47 Pulse 105 H 07/25/17 04:47 Resp 16 07/25/17 04:47 BP 130/76 07/25/17 04:47 Pulse Ox 94 L 07/25/17 05:47 Weight - Most Recent: 71.305 kg I&O - Last 24 Hours: Intake & Output 07/24/17 07/25/17 07/25/17 22:59 06:59 14:59 Intake Total 4808 2330 Output Total 550 1750 Balance 4258 580 Lab Results Last 24 Hours: Laboratory Results - last 24 hr 07/24/17 07/24/17 07/24/17 Range/Units 10:17 10:17 10:17 WBC 12.13 H (4.23-9.07) K/mm3 RBC 4.13 L (4.63-6.08) M/mm3 Hgb 11.5 L (13.7-17.5) gm/L Hct 35.2 L (40.1-51.0) % MCV 85.2 (79.0-92.2) fl MCH 27.8 (25.7-32.2) pg MCHC 32.7 (32.2-35.5) g/dl RDW Std Deviation 46.2 H (35.1-43.9) fL Plt Count 278 (163-337) K/mm3 MPV 8.8 L (9.4-12.3) fl Neut % (Auto) 92.4 H (34.0-67.9) % Lymph % (Auto) 2.0 L (21.8-53.1) % Hood % (Auto) 5.3 (5.3-12.2) % Eos % (Auto) 0 L (0.8-7.0) Baso % (Auto) 0.1 (0.1-1.2) % Neut # (Auto) 11.21 H (1.78-5.38) K/mm3 Lymph # (Auto) 0.24 L (1.32-3.57) K/mm3 Hood # (Auto) 0.64 (0.30-0.82) K/mm3 Eos # (Auto) 0.00 L (0.04-0.54) K/mm3 Baso # (Auto) 0.01 (0.01-0.08) K/mm3 Manual Slide Review Abnormal smear Sodium 133 L (136-145) mEq/L Potassium 3.8 (3.5-5.1) mEq/L Chloride 100 (98-107) mEq/L Carbon Dioxide 23 (21-32) mEq/L Anion Gap 13.8 (5-15) BUN 17 (7-18) mg/dL Creatinine 1.1 (0.7-1.3) mg/dL Est Cr Clr Drug Dosing 50.04 mL/min Estimated GFR (MDRD) > 60 (>60) mL/min BUN/Creatinine Ratio 15.5 (14-18) Glucose 135 H (83-115) mg/dL Lactic Acid (0.4-2.0) mmol/L Calcium 8.4 L (8.5-10.1) mg/dL Magnesium 1.9 (1.8-2.4) mg/dl Iron (65-175) ug/dL TIBC (100-400) ug/dL % Saturation (20-55) % Transferrin (202-364) mg/dL C-Reactive Protein 0.9 (<1.0) mg/dL Vitamin B12 (193-986) pg/ml Vitamin D 25-Hydroxy (30-100) ng/mL Folate (8.6-58.9) ng/mL TSH 3rd Generation 1.922 (0.358-3.74) uIU/mL 07/24/17 07/24/17 07/24/17 Range/Units 10:17 11:15 12:32 WBC (4.23-9.07) K/mm3 RBC (4.63-6.08) M/mm3 Hgb (13.7-17.5) gm/L Hct (40.1-51.0) % MCV (79.0-92.2) fl MCH (25.7-32.2) pg MCHC (32.2-35.5) g/dl RDW Std Deviation (35.1-43.9) fL Plt Count (163-337) K/mm3 MPV (9.4-12.3) fl Neut % (Auto) (34.0-67.9) % Lymph % (Auto) (21.8-53.1) % Hood % (Auto) (5.3-12.2) % Eos % (Auto) (0.8-7.0) Baso % (Auto) (0.1-1.2) % Neut # (Auto) (1.78-5.38) K/mm3 Lymph # (Auto) (1.32-3.57) K/mm3 Hood # (Auto) (0.30-0.82) K/mm3 Eos # (Auto) (0.04-0.54) K/mm3 Baso # (Auto) (0.01-0.08) K/mm3 Manual Slide Review Sodium (136-145) mEq/L Potassium (3.5-5.1) mEq/L Chloride (98-107) mEq/L Carbon Dioxide (21-32) mEq/L Anion Gap (5-15) BUN (7-18) mg/dL Creatinine (0.7-1.3) mg/dL Est Cr Clr Drug Dosing mL/min Estimated GFR (MDRD) (>60) mL/min BUN/Creatinine Ratio (14-18) Glucose (83-115) mg/dL Lactic Acid 3.4 H (0.4-2.0) mmol/L Calcium (8.5-10.1) mg/dL Magnesium (1.8-2.4) mg/dl Iron 76 (65-175) ug/dL TIBC 220 (100-400) ug/dL % Saturation 35 (20-55) % Transferrin 176 L (202-364) mg/dL C-Reactive Protein (<1.0) mg/dL Vitamin B12 279 (193-986) pg/ml Vitamin D 25-Hydroxy 19 L (30-100) ng/mL Folate 24.3 (8.6-58.9) ng/mL TSH 3rd Generation (0.358-3.74) uIU/mL 07/25/17 07/25/17 07/25/17 Range/Units 06:35 06:35 06:35 WBC 8.89 (4.23-9.07) K/mm3 RBC 4.15 L (4.63-6.08) M/mm3 Hgb 11.5 L (13.7-17.5) gm/L Hct 35.7 L (40.1-51.0) % MCV 86.0 (79.0-92.2) fl MCH 27.7 (25.7-32.2) pg MCHC 32.2 (32.2-35.5) g/dl RDW Std Deviation 47.2 H (35.1-43.9) fL Plt Count 280 (163-337) K/mm3 MPV 8.8 L (9.4-12.3) fl Neut % (Auto) 93.0 H (34.0-67.9) % Lymph % (Auto) 2.4 L (21.8-53.1) % Hood % (Auto) 4.3 L (5.3-12.2) % Eos % (Auto) 0 L (0.8-7.0) Baso % (Auto) 0.0 L (0.1-1.2) % Neut # (Auto) 8.27 H (1.78-5.38) K/mm3 Lymph # (Auto) 0.21 L (1.32-3.57) K/mm3 Hood # (Auto) 0.38 (0.30-0.82) K/mm3 Eos # (Auto) 0.00 L (0.04-0.54) K/mm3 Baso # (Auto) 0.00 L (0.01-0.08) K/mm3 Manual Slide Review Abnormal smear Sodium 137 (136-145) mEq/L Potassium 4.4 (3.5-5.1) mEq/L Chloride 105 (98-107) mEq/L Carbon Dioxide 22 (21-32) mEq/L Anion Gap 14.4 (5-15) BUN 19 H (7-18) mg/dL Creatinine 1.0 (0.7-1.3) mg/dL Est Cr Clr Drug Dosing 57.93 mL/min Estimated GFR (MDRD) > 60 (>60) mL/min BUN/Creatinine Ratio 19.0 H (14-18) Glucose 115 (83-115) mg/dL Lactic Acid 1.6 (0.4-2.0) mmol/L Calcium 8.4 L (8.5-10.1) mg/dL Magnesium 2.2 (1.8-2.4) mg/dl Iron (65-175) ug/dL TIBC (100-400) ug/dL % Saturation (20-55) % Transferrin (202-364) mg/dL C-Reactive Protein 0.2 (<1.0) mg/dL Vitamin B12 (193-986) pg/ml Vitamin D 25-Hydroxy (30-100) ng/mL Folate (8.6-58.9) ng/mL TSH 3rd Generation (0.358-3.74) uIU/mL [facility] Results Last 24 Hours: Microbiology 07/24/17 20:10 Stool Occult Blood ([facility]) - Final Stool / Feces Med Orders - Current: Current Medications Acetaminophen (Tylenol) 650 mg PO Q4H PRN PRN Reason: Pain Last Admin: 07/23/17 21:57 Dose: 650 mg Albuterol (Proventil Neb Soln) 2.5 mg NEB Q4H PRN PRN Reason: Shortness of Breath Last Admin: 07/23/17 14:38 Dose: 2.5 mg Albuterol/Ipratropium (Duoneb 3.0-0.5 Mg/3 Ml) 3 ml NEB QIDRT [facility] Last Admin: 07/25/17 05:47 Dose: 3 ml Azithromycin (Zithromax) 500 mg PO DAILY [facility] Stop: 07/26/17 09:01 Last Admin: 07/24/17 11:40 Dose: 500 mg Budesonide/Formoterol Fumarate (Symbicort 160-4.5 Mcg) 0 gm INH BID [facility] Buspirone HCl (Buspar) 5 mg PO BID [facility] Last Admin: 07/24/17 20:54 Dose: 5 mg Cholecalciferol (Vitamin D3) 2,000 units PO DAILY [facility] Guaifenesin (Mucinex) 1,200 mg PO BID [facility] Last Admin: 07/24/17 21:44 Dose: 1,200 mg Hydralazine HCl (Apresoline) 20 mg IVPUSH Q6H PRN PRN Reason: Hypertension Last Admin: 07/22/17 14:40 Dose: 20 mg Sodium Chloride (Normal Saline) 1,000 mls @ 150 mls/hr IV ASDIRECTED [facility] Last Admin: 07/25/17 03:26 Dose: 150 mls/hr Latanoprost (Xalatan 0.005% Ophth Soln) 0 ml EYEBOTH BEDTIME ADRIANO Lorazepam (Ativan) 0.5 mg PO BID [facility] Last Admin: 07/24/17 21:03 Dose: Not Given Lorazepam (Ativan) 0.5 mg PO Q4H PRN PRN Reason: anxiety/SOB Magnesium Oxide (Magnesium Oxide) 400 mg PO BID [facility] Last Admin: 07/24/17 20:54 Dose: 400 mg Methylprednisolone Sodium Succinate (Solu-Medrol) 125 mg IVPUSH Q8H [facility] Last Admin: 07/25/17 01:38 Dose: 125 mg Metoprolol Succinate (Toprol Xl) 25 mg PO DAILY [facility] Last Admin: 07/24/17 10:29 Dose: 25 mg Metoprolol Tartrate (Lopressor) 5 mg IVPUSH Q6H PRN PRN Reason: heart rate Last Admin: 07/24/17 17:36 Dose: 5 mg Morphine Sulfate (Morphine) 15 mg PO TID [facility] Last Admin: 07/24/17 20:53 Dose: 15 mg Roflumilast 500 Mcg* (*Own Med) 500 mcg PO DAILY [facility] Last Admin: 07/24/17 10:24 Dose: 500 mcg Umeclidinium Elim (Incruse Ellipta)) 1 Puff)Own Med 1 puff INH DAILY [facility] Last Admin: 07/24/17 09:36 Dose: 1 puff Oxymetazoline HCl (Afrin Original 0.05% Nasal [place]) 0 ml NASBOTH DAILY PRN PRN Reason: Nasal Dryness Last Admin: 07/24/17 21:54 Dose: 1 applic Pantoprazole Sodium (Protonix) 40 mg PO BID@0700,1700 [facility] Last Admin: 07/25/17 07:43 Dose: 40 mg Polyethylene Glycol (Miralax) 17 gm PO DAILY [facility] Last Admin: 07/24/17 10:20 Dose: Not Given Saccharomyces Boulardii (Florastor) 250 mg PO BID [facility] Last Admin: 07/24/17 20:52 Dose: 250 mg Temazepam (Restoril) 15 mg PO BEDTIME PRN PRN Reason: Sleep Discontinued Medications Acetaminophen (Tylenol) 650 mg PO NOW ONE Stop: 07/21/17 17:45 Last Admin: 07/21/17 18:16 Dose: 650 mg Acetaminophen (Tylenol) 650 mg PO Q6H PRN PRN Reason: Pain/Fever Last Admin: 07/22/17 12:37 Dose: 650 mg Albuterol/Ipratropium (Duoneb 3.0-0.5 Mg/3 Ml) 3 ml NEB ONETIME ONE Stop: 07/21/17 16:23 Last Admin: 07/21/17 16:31 Dose: 3 ml Budesonide/Formoterol Fumarate (Symbicort 160-4.5 Mcg) 0 gm INH BID [facility] Last Admin: 07/24/17 21:08 Dose: 2 puff Diphenhydramine HCl (Benadryl) 50 mg IVPUSH ONETIME ONE Stop: 07/21/17 19:04 Last Admin: 07/21/17 19:24 Dose: 50 mg Enoxaparin Sodium (Lovenox) 40 mg SUBCUT DAILY [facility] Last Admin: 07/23/17 08:47 Dose: Not Given Famotidine (Pepcid) 20 mg IVPUSH ONETIME ONE Stop: 07/21/17 19:04 Last Admin: 07/21/17 19:28 Dose: 20 mg Sodium Chloride (Normal Saline) 100 mls @ 65 mls/hr IV ASDIRECTED [facility] Last Admin: 07/21/17 19:48 Dose: 65 mls/hr Sodium Chloride (Normal Saline) 1,000 mls @ 75 mls/hr IV ASDIRECTED [facility] Last Admin: 07/24/17 07:54 Dose: 75 mls/hr Levofloxacin/Dextrose 750 mg/ (Premix) 150 mls @ 100 mls/hr IV ONETIME ONE Stop: 07/22/17 00:29 Last Admin: 07/21/17 23:38 Dose: 100 mls/hr Magnesium Sulfate 2 gm/ Premix 50 mls @ 25 mls/hr IV ONETIME ONE Stop: 07/23/17 12:02 Last Admin: 07/23/17 11:11 Dose: 25 mls/hr Levofloxacin/Dextrose 750 mg/ (Premix) 150 mls @ 100 mls/hr IV Q24H [facility] Last Admin: 07/23/17 21:37 Dose: 100 mls/hr Sodium Chloride (Normal Saline) 1,000 mls @ 999 mls/hr IV ONETIME ONE Stop: 07/24/17 13:35 Last Admin: 07/24/17 14:02 Dose: 999 mls/hr Iopamidol (Isovue-370 (76%)) 100 ml IVPUSH ONETIME ONE Stop: 07/21/17 19:12 Last Admin: 07/21/17 19:48 Dose: 100 ml Latanoprost (Xalatan 0.005% Ophth Soln) 0 ml EYEBOTH BEDTIME [facility] Last Admin: 07/24/17 21:01 Dose: 1 drop Lorazepam (Ativan) 0.5 mg IVPUSH ONETIME ONE Stop: 07/21/17 17:30 Last Admin: 07/21/17 17:35 Dose: 0.5 mg Lorazepam (Ativan) 0.5 mg PO Q4H PRN PRN Reason: anxiety/SOB Last Admin: 07/22/17 12:59 Dose: 0.5 mg Lorazepam (Ativan) 0.5 mg PO Q4H PRN PRN Reason: anxiety/SOB Lorazepam (Ativan) 1 mg IVPUSH ONETIME ONE Stop: 07/22/17 13:53 Last Admin: 07/22/17 14:01 Dose: 1 mg Lorazepam (Ativan) 1 mg IVPUSH ONETIME ONE Stop: 07/24/17 21:36 Last Admin: 07/24/17 21:51 Dose: 1 mg Lorazepam (Ativan) 0.5 mg PO .STK-MED ONE Stop: 07/24/17 07:54 Methylprednisolone Sodium Succinate (Solu-Medrol) 125 mg IVPUSH ONETIME ONE Stop: 07/21/17 16:23 Last Admin: 07/21/17 16:30 Dose: 125 mg Methylprednisolone Sodium Succinate (Solu-Medrol) 125 mg IVPUSH ONETIME ONE Stop: 07/21/17 19:04 Last Admin: 07/21/17 19:29 Dose: 125 mg Methylprednisolone Sodium Succinate (Solu-Medrol) 125 mg IVPUSH Q6H [facility] Last Admin: 07/23/17 14:54 Dose: 125 mg Metoprolol Succinate (Toprol Xl) 25 mg PO .STK-MED ONE Stop: 07/24/17 07:57 Mometasone Furoate/Formoterol Fumar (Dulera 200-5 Mcg) 2 puff IH BIDRT [facility] Last Admin: 07/25/17 05:47 Dose: Not Given Morphine Sulfate (Morphine) 15 mg PO Q8H PRN PRN Reason: pain Morphine Sulfate (Morphine) 1.5 mg IVPUSH ONETIME ONE Stop: 07/24/17 14:40 Last Admin: 07/24/17 14:58 Dose: 1.5 mg Guaifenesin [Mucinex ] Er 600 MgOwn Med 1,200 mg PO BID [facility] Last Admin: 07/24/17 23:05 Dose: Not Given Pantoprazole Sodium (Protonix) 40 mg PO BID [facility] Last Admin: 07/24/17 20:52 Dose: 40 mg Sodium Chloride (Saline Flush) 10 ml FLUSH ASDIRECTED PRN PRN Reason: Keep Vein Open Last Admin: 07/21/17 16:30 Dose: 10 ml Sodium Chloride (Saline Flush) 10 ml FLUSH ONETIME PRN PRN Reason: IV FLUSH Last Admin: 07/21/17 19:48 Dose: 10 ml Temazepam (Restoril) 7.5 mg PO BEDTIME PRN PRN Reason: Sleep Last Admin: 07/23/17 21:28 Dose: 7.5 mg Trazodone HCl (Trazodone) 50 mg PO BEDTIME PRN PRN Reason: Sleep Last Admin: 07/24/17 02:06 Dose: 50 mg - My Orders Last 24 Hours: My Active Orders 07/24/17 16:12 Temazepam [Restoril] 15 mg PO BEDTIME PRN - Plan Plan:: Impression/Plan: Acute exacerbation of COPD; End stage COPD; O2 and steroid dependent -Supplemental oxygen PRN -RT/Nebs/IS/FV -Solumedrol IV- start taper today -Zithromax for antiinflammatory- PO x 3 days then DC -Mucinex BID -DC IV levaquin as CXR negative -Repeat CXR today with emphysematous changes, no evicence of infiltrates/PNA -Resume home morphine dosing; scheduled and PRN for dyspnea (he has been without this x 3 days, likely cause of tachycardia and increased anxiety) Query acute viral infection -Negative flu screen- ordered resp viral panel -negative mycoplasma -Strep pneumo antigen pending -Has been treated with IV levaquin prophylactically -Elevated lactic acid at 2.9--repeat this am Hypoxemia--improving; less supplemental oxygen requirements -Tx as above Hyponatremia -Follow with daily labs -Consider thermotabs if worsening or symptomatic Anemia- ? acute on chronic -Hgb 11.7-->11.5 -Check iron studies, B12, folate and occult Generalized weakness with decreased appetite -[employer] Training [employer] consult/supplement -TSH and vit D levels -PT/OT consults Chronic: cont home meds HTN- stable GERD- Cont PPI Anxiety Depression Crohn's disease- intermittent loose stools- c-diff is negative Other: Daily am labs Cont Home meds PT/OT DVT/GI prophylaxis DC plan- Plan at least 2-3 more days, steroid taper, follow hyponatremia. PCP is Dr. Campo with [facility]
[2017-07-25] MEDS: Acetaminophen 325 MG Tab PO PRN (09:18)
[2017-07-25] MEDS: BUDESONIDE INH SCH ×2 (09:57→20:24)
[2017-07-25] MEDS: FORMOTEROL INH SCH ×2 (09:57→20:24)
[2017-07-25] MEDS: UMECLIDINIUM BROMIDE INH SCH (09:58)
[2017-07-25] MEDS ORDERED: methylPREDNISolone Sodium Succinate 40 MG/1 ML SDV IVPUSH SCH (10:48)
[2017-07-25] MEDS ORDERED: Benzocaine/Cetylpyridinium/Menthol Lozenge MUCMEM PRN (12:10)
[2017-07-25] MEDS ORDERED: Benzonatate 100 MG Cap PO ONE (15:25)
[2017-07-25] MEDS: ROFLUMILAST 500 MCG PO SCH (15:26)
[2017-07-25] MEDS: methylPREDNISolone Sodium Succinate 40 MG/1 ML SDV IVPUSH SCH (16:00)
[2017-07-25] MEDS ORDERED: Morphine 2 MG/ML Syringe IVPUSH ONE (20:42)
[2017-07-25] MEDS ORDERED: LORazepam 2 MG/ML SDV IVPUSH ONE (20:42)
[2017-07-25] MEDS: Benzonatate 100 MG Cap PO SCH (20:45)
[2017-07-25] MEDS: Latanoprost 0.005% Ophth Soln 2.5 ML Bottle EYEBOTH SCH (20:48)
[2017-07-25] MEDS: Oxymetazoline 0.05% Nasal Spray 15 ML Bottle NASBOTH PRN (20:56)
[2017-07-25] MEDS ORDERED: Ergocalciferol (Vitamin D2) 50,000 Unit Cap PO ONE (21:00)
[2017-07-25] MEDS ORDERED: LORazepam 2 MG/ML SDV IVPUSH SCH (21:00)
[2017-07-26] MEDS: methylPREDNISolone Sodium Succinate 40 MG/1 ML SDV IVPUSH SCH ×3 (01:27→17:38)
[2017-07-26] MEDS: Pantoprazole 40 MG Tab.CR PO SCH ×2 (06:01→17:38)
[2017-07-26] MEDS: Albuterol/Ipratropium 3.0-0.5 MG/3 ML Neb Soln NEB SCH ×4 (06:07→20:56)
--- NOTE | 2017-07-26 07:25 | PCM.PN ---
- General Info Date of Service: 07/26/17 Admission Dx/Problem (Free Text): Admission Diagnosis/Problem Admission Diagnosis/Problem COPD, Moderate chronic obstructive pulmonary disease Subjective Update: Follow Up Functional Status: Reports: Pain Controlled, Tolerating Diet, Ambulating, Urinating. Denies: New Symptoms - Review of Systems General: Reports: Fatigue. Denies: Fever, Chills HEENT: Reports: No Symptoms Pulmonary: Reports: Shortness of Breath, Cough, Sputum. Denies: Wheezing Cardiovascular: Reports: Dyspnea on Exertion (baseline). Denies: Chest Pain, Palpitations, Lightheadedness Gastrointestinal: Reports: Flatus. Denies: Abdominal Pain, Decreased Appetite, Nausea, Vomiting Genitourinary: Reports: No Symptoms Musculoskeletal: Reports: No Symptoms Skin: Denies: Cyanosis, Mottled, Pallor, Diaphoresis Neurological: Reports: Gait Disturbance. Denies: Confusion, Difficulty Walking , Weakness Psychiatric: Denies: Depression, Anxiety, Agitation, Hallucinations Systems Review Comment:: No significant overnight or acute issues. He slept pretty good. He has not complained much about his coughing since he was started on Tessalon Perles. He is febrile w/o leukocytosis. - Patient Data Vitals - Most Recent: Last Vital Signs Temp 36.5 C 07/26/17 01:29 Pulse 90 07/26/17 01:29 Resp 20 07/26/17 01:29 BP 143/77 H 07/26/17 01:29 Pulse Ox 95 07/26/17 06:08 Weight - Most Recent: 71.622 kg I&O - Last 24 Hours: Intake & Output 07/25/17 07/26/17 07/26/17 22:59 06:59 14:59 Intake Total 2360 800 Output Total 2100 1600 Balance 260 -800 Lab Results Last 24 Hours: Laboratory Results - last 24 hr 07/25/17 07/25/17 07/25/17 Range/Units 06:35 06:35 18:04 WBC (4.23-9.07) K/mm3 RBC (4.63-6.08) M/mm3 Hgb (13.7-17.5) gm/L Hct (40.1-51.0) % MCV (79.0-92.2) fl MCH (25.7-32.2) pg MCHC (32.2-35.5) g/dl RDW Std Deviation (35.1-43.9) fL Plt Count (163-337) K/mm3 MPV (9.4-12.3) fl Neut % (Auto) (34.0-67.9) % Lymph % (Auto) (21.8-53.1) % Hardy % (Auto) (5.3-12.2) % Eos % (Auto) (0.8-7.0) Baso % (Auto) (0.1-1.2) % Neut # (Auto) (1.78-5.38) K/mm3 Lymph # (Auto) (1.32-3.57) K/mm3 Hardy # (Auto) (0.30-0.82) K/mm3 Eos # (Auto) (0.04-0.54) K/mm3 Baso # (Auto) (0.01-0.08) K/mm3 Sodium 137 (136-145) mEq/L Potassium 4.4 (3.5-5.1) mEq/L Chloride 105 (98-107) mEq/L Carbon Dioxide 22 (21-32) mEq/L Anion Gap 14.4 (5-15) BUN 19 H (7-18) mg/dL Creatinine 1.0 (0.7-1.3) mg/dL Est Cr Clr Drug Dosing 57.93 mL/min Estimated GFR (MDRD) > 60 (>60) mL/min BUN/Creatinine Ratio 19.0 H (14-18) Glucose 115 136 H (83-115) mg/dL Lactic Acid 1.6 (0.4-2.0) mmol/L Calcium 8.4 L (8.5-10.1) mg/dL Magnesium 2.2 (1.8-2.4) mg/dl C-Reactive Protein 0.2 (<1.0) mg/dL 07/26/17 Range/Units 05:49 WBC 8.69 (4.23-9.07) K/mm3 RBC 3.97 L (4.63-6.08) M/mm3 Hgb 11.2 L (13.7-17.5) gm/L Hct 34.1 L (40.1-51.0) % MCV 85.9 (79.0-92.2) fl MCH 28.2 (25.7-32.2) pg MCHC 32.8 (32.2-35.5) g/dl RDW Std Deviation 46.9 H (35.1-43.9) fL Plt Count 276 (163-337) K/mm3 MPV 9.2 L (9.4-12.3) fl Neut % (Auto) 90.6 H (34.0-67.9) % Lymph % (Auto) 2.9 L (21.8-53.1) % Hardy % (Auto) 5.9 (5.3-12.2) % Eos % (Auto) 0 L (0.8-7.0) Baso % (Auto) 0.0 L (0.1-1.2) % Neut # (Auto) 7.88 H (1.78-5.38) K/mm3 Lymph # (Auto) 0.25 L (1.32-3.57) K/mm3 Hardy # (Auto) 0.51 (0.30-0.82) K/mm3 Eos # (Auto) 0.00 L (0.04-0.54) K/mm3 Baso # (Auto) 0.00 L (0.01-0.08) K/mm3 Sodium (136-145) mEq/L Potassium (3.5-5.1) mEq/L Chloride (98-107) mEq/L Carbon Dioxide (21-32) mEq/L Anion Gap (5-15) BUN (7-18) mg/dL Creatinine (0.7-1.3) mg/dL Est Cr Clr Drug Dosing mL/min Estimated GFR (MDRD) (>60) mL/min BUN/Creatinine Ratio (14-18) Glucose (83-115) mg/dL Lactic Acid (0.4-2.0) mmol/L Calcium (8.5-10.1) mg/dL Magnesium (1.8-2.4) mg/dl C-Reactive Protein (<1.0) mg/dL Med Orders - Current: Current Medications Acetaminophen (Tylenol) 650 mg PO Q4H PRN PRN Reason: Pain Last Admin: 07/25/17 09:18 Dose: 650 mg Albuterol (Proventil Neb Soln) 2.5 mg NEB Q4H PRN PRN Reason: Shortness of Breath Last Admin: 07/23/17 14:38 Dose: 2.5 mg Albuterol/Ipratropium (Duoneb 3.0-0.5 Mg/3 Ml) 3 ml NEB QIDRT [facility] Last Admin: 07/26/17 06:07 Dose: 3 ml Azithromycin (Zithromax) 500 mg PO DAILY [facility] Stop: 07/26/17 09:01 Last Admin: 07/25/17 08:45 Dose: 500 mg Benzocaine/Menthol (Cepacol Sore Throat) 1 lozenge MUCMEM Q4HR PRN PRN Reason: Sore Throat Last Admin: 07/25/17 12:21 Dose: 1 lozenge Benzonatate (Tessalon Perles) 200 mg PO BID [facility] Last Admin: 07/25/17 20:45 Dose: 200 mg Budesonide/Formoterol Fumarate (Symbicort 160-4.5 Mcg) 0 gm INH BID [facility] Last Admin: 07/25/17 20:24 Dose: 2 puff Buspirone HCl (Buspar) 5 mg PO BID [facility] Last Admin: 07/25/17 20:45 Dose: 5 mg Cholecalciferol (Vitamin D3) 2,000 units PO DAILY [facility] Last Admin: 07/25/17 08:46 Dose: 2,000 units Ergocalciferol (Vitamin D2) 50,000 units PO DAILY [facility] Guaifenesin (Mucinex) 1,200 mg PO BID [facility] Last Admin: 07/25/17 20:45 Dose: 1,200 mg Hydralazine HCl (Apresoline) 20 mg IVPUSH Q6H PRN PRN Reason: Hypertension Last Admin: 07/22/17 14:40 Dose: 20 mg Latanoprost (Xalatan 0.005% Ophth Soln) 0 ml EYEBOTH BEDTIME [facility] Last Admin: 07/25/17 20:48 Dose: 1 drop Lorazepam (Ativan) 0.5 mg PO BID [facility] Last Admin: 07/25/17 21:07 Dose: Not Given Lorazepam (Ativan) 0.5 mg PO Q4H PRN PRN Reason: anxiety/SOB Magnesium Oxide (Magnesium Oxide) 400 mg PO BID [facility] Last Admin: 07/25/17 20:45 Dose: 400 mg Methylprednisolone Sodium Succinate (Solu-Medrol) 60 mg IVPUSH Q8H [facility] Last Admin: 07/26/17 01:27 Dose: 60 mg Metoprolol Succinate (Toprol Xl) 25 mg PO DAILY [facility] Last Admin: 07/25/17 08:44 Dose: 25 mg Metoprolol Tartrate (Lopressor) 5 mg IVPUSH Q6H PRN PRN Reason: heart rate Last Admin: 07/24/17 17:36 Dose: 5 mg Morphine Sulfate (Morphine) 15 mg PO TID [facility] Last Admin: 07/25/17 20:44 Dose: 15 mg Roflumilast 500 Mcg* (*Own Med) 500 mcg PO DAILY [facility] Last Admin: 07/25/17 15:26 Dose: 500 mcg Umeclidinium [place] (Incruse Ellipta)) 1 Puff)Own Med 1 puff INH DAILY [facility] Last Admin: 07/25/17 09:58 Dose: 1 puff Oxymetazoline HCl (Afrin Original 0.05% Nasal [place]) 0 ml NASBOTH DAILY PRN PRN Reason: Nasal Dryness Last Admin: 07/25/17 20:56 Dose: 1 applic Pantoprazole Sodium (Protonix) 40 mg PO BID@0700,1700 [facility] Last Admin: 07/26/17 06:01 Dose: 40 mg Polyethylene Glycol (Miralax) 17 gm PO DAILY [facility] Last Admin: 07/25/17 08:48 Dose: Not Given Saccharomyces Boulardii (Florastor) 250 mg PO BID [facility] Last Admin: 07/25/17 20:46 Dose: 250 mg Temazepam (Restoril) 15 mg PO BEDTIME PRN PRN Reason: Sleep Discontinued Medications Acetaminophen (Tylenol) 650 mg PO NOW ONE Stop: 07/21/17 17:45 Last Admin: 07/21/17 18:16 Dose: 650 mg Acetaminophen (Tylenol) 650 mg PO Q6H PRN PRN Reason: Pain/Fever Last Admin: 07/22/17 12:37 Dose: 650 mg Albuterol/Ipratropium (Duoneb 3.0-0.5 Mg/3 Ml) 3 ml NEB ONETIME ONE Stop: 07/21/17 16:23 Last Admin: 07/21/17 16:31 Dose: 3 ml Benzonatate (Tessalon Perles) 100 mg PO ONETIME ONE Stop: 07/25/17 15:26 Last Admin: 07/25/17 15:59 Dose: 100 mg Budesonide/Formoterol Fumarate (Symbicort 160-4.5 Mcg) 0 gm INH BID [facility] Last Admin: 07/24/17 21:08 Dose: 2 puff Diphenhydramine HCl (Benadryl) 50 mg IVPUSH ONETIME ONE Stop: 07/21/17 19:04 Last Admin: 07/21/17 19:24 Dose: 50 mg Enoxaparin Sodium (Lovenox) 40 mg SUBCUT DAILY [facility] Last Admin: 07/23/17 08:47 Dose: Not Given Ergocalciferol (Vitamin D2) 50,000 units PO ONETIME ONE Stop: 07/25/17 21:01 Famotidine (Pepcid) 20 mg IVPUSH ONETIME ONE Stop: 07/21/17 19:04 Last Admin: 07/21/17 19:28 Dose: 20 mg Sodium Chloride (Normal Saline) 100 mls @ 65 mls/hr IV ASDIRECTED [facility] Last Admin: 07/21/17 19:48 Dose: 65 mls/hr Sodium Chloride (Normal Saline) 1,000 mls @ 75 mls/hr IV ASDIRECTED [facility] Last Admin: 07/24/17 07:54 Dose: 75 mls/hr Levofloxacin/Dextrose 750 mg/ (Premix) 150 mls @ 100 mls/hr IV ONETIME ONE Stop: 07/22/17 00:29 Last Admin: 07/21/17 23:38 Dose: 100 mls/hr Magnesium Sulfate 2 gm/ Premix 50 mls @ 25 mls/hr IV ONETIME ONE Stop: 07/23/17 12:02 Last Admin: 07/23/17 11:11 Dose: 25 mls/hr Levofloxacin/Dextrose 750 mg/ (Premix) 150 mls @ 100 mls/hr IV Q24H [facility] Last Admin: 07/23/17 21:37 Dose: 100 mls/hr Sodium Chloride (Normal Saline) 1,000 mls @ 999 mls/hr IV ONETIME ONE Stop: 07/24/17 13:35 Last Admin: 07/24/17 14:02 Dose: 999 mls/hr Sodium Chloride (Normal Saline) 1,000 mls @ 150 mls/hr IV ASDIRECTED [facility] Last Admin: 07/25/17 03:26 Dose: 150 mls/hr Iopamidol (Isovue-370 (76%)) 100 ml IVPUSH ONETIME ONE Stop: 07/21/17 19:12 Last Admin: 07/21/17 19:48 Dose: 100 ml Latanoprost (Xalatan 0.005% Ophth Soln) 0 ml EYEBOTH BEDTIME [facility] Last Admin: 07/24/17 21:01 Dose: 1 drop Lorazepam (Ativan) 0.5 mg IVPUSH ONETIME ONE Stop: 07/21/17 17:30 Last Admin: 07/21/17 17:35 Dose: 0.5 mg Lorazepam (Ativan) 0.5 mg PO Q4H PRN PRN Reason: anxiety/SOB Last Admin: 07/22/17 12:59 Dose: 0.5 mg Lorazepam (Ativan) 0.5 mg PO Q4H PRN PRN Reason: anxiety/SOB Lorazepam (Ativan) 1 mg IVPUSH ONETIME ONE Stop: 07/22/17 13:53 Last Admin: 07/22/17 14:01 Dose: 1 mg Lorazepam (Ativan) 1 mg IVPUSH ONETIME ONE Stop: 07/24/17 21:36 Last Admin: 07/24/17 21:51 Dose: 1 mg Lorazepam (Ativan) 0.5 mg PO .STK-MED ONE Stop: 07/24/17 07:54 Lorazepam (Ativan) 0.5 mg IVPUSH ONETIME ONE Stop: 07/25/17 20:43 Last Admin: 07/25/17 21:03 Dose: 0.5 mg Methylprednisolone Sodium Succinate (Solu-Medrol) 125 mg IVPUSH ONETIME ONE Stop: 07/21/17 16:23 Last Admin: 07/21/17 16:30 Dose: 125 mg Methylprednisolone Sodium Succinate (Solu-Medrol) 125 mg IVPUSH ONETIME ONE Stop: 07/21/17 19:04 Last Admin: 07/21/17 19:29 Dose: 125 mg Methylprednisolone Sodium Succinate (Solu-Medrol) 125 mg IVPUSH Q6H [facility] Last Admin: 07/23/17 14:54 Dose: 125 mg Methylprednisolone Sodium Succinate (Solu-Medrol) 125 mg IVPUSH Q8H [facility] Last Admin: 07/25/17 08:46 Dose: 125 mg Methylprednisolone Sodium Succinate (Solu-Medrol) 60 mg IVPUSH Q8H [facility] Last Admin: 07/25/17 11:39 Dose: Not Given Metoprolol Succinate (Toprol Xl) 25 mg PO .STK-MED ONE Stop: 07/24/17 07:57 Mometasone Furoate/Formoterol Fumar (Dulera 200-5 Mcg) 2 puff IH BIDRT [facility] Last Admin: 07/25/17 05:47 Dose: Not Given Morphine Sulfate (Morphine) 15 mg PO Q8H PRN PRN Reason: pain Morphine Sulfate (Morphine) 1.5 mg IVPUSH ONETIME ONE Stop: 07/24/17 14:40 Last Admin: 07/24/17 14:58 Dose: 1.5 mg Morphine Sulfate (Morphine) 2 mg IVPUSH ONETIME ONE Stop: 07/25/17 20:43 Last Admin: 07/25/17 21:02 Dose: 2 mg Guaifenesin [Mucinex ] Er 600 MgOwn Med 1,200 mg PO BID [facility] Last Admin: 07/24/17 23:05 Dose: Not Given Pantoprazole Sodium (Protonix) 40 mg PO BID [facility] Last Admin: 07/24/17 20:52 Dose: 40 mg Sodium Chloride (Saline Flush) 10 ml FLUSH ASDIRECTED PRN PRN Reason: Keep Vein Open Last Admin: 07/21/17 16:30 Dose: 10 ml Sodium Chloride (Saline Flush) 10 ml FLUSH ONETIME PRN PRN Reason: IV FLUSH Last Admin: 07/21/17 19:48 Dose: 10 ml Temazepam (Restoril) 7.5 mg PO BEDTIME PRN PRN Reason: Sleep Last Admin: 07/23/17 21:28 Dose: 7.5 mg Temazepam (Restoril) 15 mg PO BEDTIME PRN PRN Reason: Sleep Last Admin: 07/25/17 20:51 Dose: 15 mg Trazodone HCl (Trazodone) 50 mg PO BEDTIME PRN PRN Reason: Sleep Last Admin: 07/24/17 02:06 Dose: 50 mg - Exam Quality Assessment: Supplemental Oxygen General: Alert, Cooperative, No Acute Distress HEENT: Pupils Equal, Pupils Reactive, EOMI, Mucous Membr. Moist/[place] Neck: Supple, Trachea Midline, No JVD, No Thyromegaly, Other (No accessory muscle use) Lungs: Decreased Breath Sounds, Other (Poor air entry and exit) Cardiovascular: Other (Distant heart sounds) GI/Abdominal Exam: Normal Bowel Sounds, Soft, Non-Tender, No Organomegaly, No Distention, No Abnormal Bruit (Male) Exam: Deferred Back Exam: Normal Inspection, Decreased Range of Motion Extremities: Normal Inspection, Normal Range of Motion, Non-Tender, No Pedal Edema, Normal Capillary Refill Peripheral Pulses: 2+: Dorsalis Pedis (L), Dorsalis Pedis (R) Skin: Warm, Dry, Intact Neurological: No New Focal Deficit Psy/Mental Status: Alert, Normal Affect, Normal Mood - Problem List Review Problem List Initiated/Reviewed/Updated: Yes - My Orders Last 24 Hours: My Active Orders 07/25/17 12:08 Consult to Physical Therapy [PT Evaluation and Treatment] [CONS] Routine 07/25/17 12:09 Consult to Occupational Therapy [OT Evaluation and Treatment] [CONS] Routine 07/25/17 12:10 Benzocaine/Cetylpyrd/Menthol [Cepacol Sore Throat] 1 lozenge MUCMEM Q4HR PRN 07/25/17 15:53 Consult to Air Brake Worker [CONS] Routine 07/25/17 21:00 Benzonatate [Tessalon Perles] 200 mg PO BID 07/26/17 09:00 Ergocalciferol (Vitamin D2) [Vitamin D2] 50,000 units PO DAILY 07/26/17 21:00 Temazepam [Restoril] 15 mg PO BEDTIME PRN - Plan Plan:: Impression/Plan: Acute Exacerbation of COPD; End stage COPD; O2 and steroid dependent -Supplemental oxygen PRN -RT/Nebs/IS/FV -Solumedrol IV- cut down to 60 mg IV TID -Zithromax for anti-inflammatory agent- PO x 3 days then DC -Mucinex 1200 mg po BID-maxed out -DC IV levaquin as CXR negative -Repeat CXR today with emphysematous changes, no evicence of infiltrates/PNA -Resume home morphine dosing; scheduled and PRN for dyspnea (he has been without this x 3 days, likely cause of tachycardia and increased anxiety) Query Acute Viral Infection -Negative flu screen and resp viral panel -Negative mycoplasma and Strep pneumo antigen -Sputum Cx-normal [place]лег -Has been treated with IV levaquin prophylactically -Elevated lactic acid at 2.9--> now 1.6 Anemia- -Possible early developing DOUGIE since he is low on transferrin level--> running low on stored of iron -Hgb 11.7--> 11.5--> 11.2 -Check iron studies-only low transferrin level -the rest are wnl -B12/folate:normal Generalized weakness with decreased appetite -Oil Well Engineer consult/supplement -TSH-normal -Vit D 19 (low) -Continue PT/OT Vit D Deficiency -Vit D level is 19 (30-100) -Vit D 2 50,000 units po weekly for 4 weeks and then monthly thereafter End of Life Care -He understood his medical conditions are now terminal -He has had 4 visits to ED last year -He is now DNR/DNI Resolved: Hyponatremia -Na 133--> 137 -Follow with daily labs -Consider thermotabs if worsening or symptomatic Chronic: cont home meds HTN- stable GERD- Cont PPI Anxiety Depression Crohn's disease- intermittent loose stools- c-diff is negative Hypoxemia -Chronic 2/2 pulmonary insufficiency -Improved; less supplemental oxygen requirements -Tx as above Other: He is at baseline clinically Daily am labs Continue PT/OT DVT/GI prophylaxis Consider of life care May benefit with pulmo rehab after discharge Additional orders as above Code status: DNR/DNI PCP is Dr. Campo with [facility]. LOS > 96 hrs due to slow response to treatment. Possible d/c in AM
[2017-07-26] MEDS: UMECLIDINIUM BROMIDE INH SCH (08:45)
[2017-07-26] MEDS: BUDESONIDE INH SCH ×2 (08:45→21:00)
[2017-07-26] MEDS: FORMOTEROL INH SCH ×2 (08:45→21:00)
[2017-07-26] MEDS ORDERED: Ergocalciferol (Vitamin D2) 50,000 Unit Cap PO SCH ×2 (09:00→10:30)
[2017-07-26] MEDS: Benzonatate 100 MG Cap PO SCH ×3 (09:18→21:48)
[2017-07-26] MEDS: Cholecalciferol (Vitamin D3) 1,000 Unit Tab PO SCH (09:18)
[2017-07-26] MEDS: Morphine 15 MG Tab PO SCH ×3 (09:19→21:30)
[2017-07-26] MEDS: busPIRone 5 MG Tab PO SCH ×2 (09:30→21:30)
[2017-07-26] MEDS: Azithromycin 250 MG Tab PO SCH (09:30)
[2017-07-26] MEDS: LORazepam 0.5 MG Tab PO SCH ×2 (09:30→21:33)
[2017-07-26] MEDS: guaiFENesin 600 MG Tab.ER PO SCH ×2 (09:30→21:30)
[2017-07-26] MEDS: Magnesium Oxide 400 MG Tab PO SCH ×2 (09:30→21:30)
[2017-07-26] MEDS: Metoprolol Succinate 25 MG Tab.ER PO SCH (09:31)
[2017-07-26] MEDS: Saccharomyces Boulardii (Probiotic) 250 MG Cap PO SCH ×2 (09:35→21:30)
[2017-07-26] MEDS: Polyethylene Glycol 3350 Powder 17 GM Packet PO SCH (09:35)
[2017-07-26] MEDS: ROFLUMILAST 500 MCG PO SCH (09:43)
[2017-07-26] MEDS: Oxymetazoline 0.05% Nasal Spray 15 ML Bottle NASBOTH PRN (17:43)
[2017-07-26] MEDS ORDERED: Morphine 2 MG/ML Syringe IVPUSH ONE (21:00)
[2017-07-26] MEDS ORDERED: Temazepam 15 MG Cap PO PRN (21:00)
[2017-07-26] MEDS ORDERED: LORazepam 2 MG/ML SDV IVPUSH ONE (21:00)
[2017-07-26] MEDS: Latanoprost 0.005% Ophth Soln 2.5 ML Bottle EYEBOTH SCH ×2 (21:31→21:49)
[2017-07-27] MEDS: methylPREDNISolone Sodium Succinate 40 MG/1 ML SDV IVPUSH SCH ×2 (00:05→10:26)
[2017-07-27] MEDS: Albuterol/Ipratropium 3.0-0.5 MG/3 ML Neb Soln NEB SCH ×2 (05:52→09:19)
[2017-07-27] MEDS: Pantoprazole 40 MG Tab.CR PO SCH (07:38)
[2017-07-27 08:52] VITALS: BP 135/79
[2017-07-27] MEDS: FORMOTEROL INH SCH (09:19)
[2017-07-27] MEDS: UMECLIDINIUM BROMIDE INH SCH (09:19)
[2017-07-27] MEDS: BUDESONIDE INH SCH (09:19)
[2017-07-27] MEDS: Polyethylene Glycol 3350 Powder 17 GM Packet PO SCH (10:17)
[2017-07-27] MEDS: Morphine 15 MG Tab PO SCH (10:20)
[2017-07-27] MEDS: LORazepam 0.5 MG Tab PO SCH (10:20)
[2017-07-27] MEDS: guaiFENesin 600 MG Tab.ER PO SCH (10:21)
[2017-07-27] MEDS: Saccharomyces Boulardii (Probiotic) 250 MG Cap PO SCH (10:21)
[2017-07-27] MEDS: Cholecalciferol (Vitamin D3) 1,000 Unit Tab PO SCH (10:23)
[2017-07-27] MEDS: busPIRone 5 MG Tab PO SCH (10:24)
[2017-07-27] MEDS: Metoprolol Succinate 25 MG Tab.ER PO SCH (10:25)
[2017-07-27] MEDS: Magnesium Oxide 400 MG Tab PO SCH (10:25)
[2017-07-27] MEDS: Benzonatate 100 MG Cap PO SCH (10:26)
[2017-07-27] MEDS: ROFLUMILAST 500 MCG PO SCH (10:32)
--- NOTE | 2017-07-27 14:04 | PCM.DCSUM1 ---
Discharge Summary - Hospital Course Brief History: This is an 82 year old male with past medical hx/o impaired vision, blindness in the right eye, hypertension, emphysema, GERD, Crohn's disease, anxiety, and depression who comes in ED with complaints of acute respiratory distress. The patient carries a history of end stage COPD and chronic respiratory failure. He was admitted for management of COPD exacerbation. - Discharge Data Discharge Date: 07/27/17 Discharge Disposition: DC/Tfer to Other 70 Condition: Fair - Discharge Diagnosis/Problem(s) (1) Acute and chronic respiratory failure ([id number]) SNOMED Code(s): 66248820 ICD Code: J96.20 - ACUTE AND CHR RESP FAILURE, UNSP W HYPOXIA OR HYPERCAPNIA Status: Acute (2) Generalized muscle weakness SNOMED Code(s): 23993142 ICD Code: M62.81 - MUSCLE WEAKNESS (GENERALIZED) Status: Acute (3) Vitamin D deficiency disease SNOMED Code(s): 50544739 ICD Code: E55.9 - VITAMIN D DEFICIENCY, UNSPECIFIED Status: Acute (4) COPD (chronic obstructive pulmonary disease) SNOMED Code(s): 36127804 ICD Code: J44.9 - CHRONIC OBSTRUCTIVE PULMONARY DISEASE, UNSPECIFIED Status : Acute Qualifiers: COPD type: COPD with acute exacerbation Qualified Code(s): J44.1 - Chronic obstructive pulmonary disease with (acute) exacerbation (5) Unsteady gait SNOMED Code(s): 71197652 ICD Code: R26.81 - UNSTEADINESS ON FEET Status: Chronic Priority: High - Patient Summary/Data Operative Procedure(s) Performed: None Complications: None Consults: Consultations 07/24/17 10:46 Consult to Dietary [Consult to Quality Tech] [CONS] Routine 07/25/17 12:08 Consult to Physical Therapy [PT Evaluation and Treatment] [CONS] Routine 07/25/17 12:09 Consult to Occupational Therapy [OT Evaluation and Treatment] [CONS] Routine 07/25/17 15:53 Consult to Residential Living Assistant [CONS] Routine Labs Pending at D/C: None Recommended Follow-up Testing/Procedures: None Planned Operative Procedure(s) after DC: None Hospital Course: Patient was primarily admitted for medical management of acute exacerbation of COPD. He carried a hx/o End Stage COPD, Chronic Respiratory Failure and O2/ Steroid Dependence. He is known to me from previous admissions for treatment of his pulmonary insufficiency. On this admission, he was put on respiratory care and bronchodilators. When I took over his care, I continued his ativan and morphine to improve his symptoms. Restoril was later added for his insomnia. The patient felt good with this regimen. During this hospitalization, we discussed end of life care and he expressed willingness for hospice/palliative care. Unfortunately, his PCP was out of town for this services. However he agreed for comfort measures. Patient was discharged with Ativan 1 mg po Q6H, Morphine 30 mg po Q6H and Restoril 15 mg po QHS PRN for comfort measures medications. Patient and daughter were made aware about the physical changes related to end of life and that these might exacerbated by synergistic effects of all those medications as mentioned above. Patient was advised to follow-up with his primary care for activation of hospice palliative care. The patient expressed understanding and in agreement with the plans as discussed above. All questions were answered. - Patient Instructions Diet: Usual Diet as Tolerated Activity: As Tolerated Driving: Do Not Drive Showering/Bathing: May Shower Notify Provider of: Fever, Nausea and/or Vomiting Other/Special Instructions: - Please take all medications as directed. - You understand all these new medications have synergistic effects that may lead to opioid overdose and could lead to unwanted . - Since you elected to be on comfort meaures, you may chose to stop taking all your home medications to include your breathing treatment. - Follow up with your doctor in 1 week for Hospice/Palliative Care - Discharge Plan Prescriptions/Med Rec: Docusate Sodium/Sennosides [Senokot-S] 2 each PO BEDTIME #60 tablet Ergocalciferol (Vitamin D2) [Vitamin D2] 50,000 unit PO ASDIRECTED #15 cap LORazepam [Ativan] 1 mg PO Q6H #120 tablet Morphine 15 mg PO ASDIRECTED PRN #120 tab PRN Reason: Other Temazepam [Restoril] 15 mg PO BEDTIME PRN #30 cap PRN Reason: Other Home Medications: Home Meds Albuterol [Ventolin HFA] 2 - 4 inh INH Q4H PRN 11/25/16 [History] Budesonide/Formoterol [Symbicort 160-4.5 MCG] 2 inh INH BID 11/25/16 [History] Metoprolol Succinate 25 mg PO DAILY 11/25/16 [History] Latanoprost [Xalatan 0.005% Ophth Soln] 1 drop EYEBOTH BEDTIME 01/24/17 [History ] Lutein 6 mg PO BID 01/24/17 [History] Acetaminophen [Tylenol] 650 mg PO Q4H PRN #0 tablet 01/27/17 [Rx] Magnesium Oxide 400 mg PO BID #60 tablet 01/27/17 [Rx] Albuterol/Ipratropium [DuoNeb 3.0-0.5 MG/3 ML] 3 ml NEB Q6HRRT PRN #1 box [Rx] Pantoprazole [ProTONIX] 40 mg PO BID #60 tab.cr 02/01/17 [Rx] Multivitamin with Minerals [Multiple Vitamin] 1 tab PO DAILY 07/21/17 [History] Oxymetazoline [Nasal Decongestant Wilkinson] 1 spray INH DAILY PRN 07/21/17 [History ] Roflumilast [Daliresp] 500 mcg PO DAILY 07/21/17 [History] Sodium Chloride 0.65% [[place] Saline] 1 spray INH DAILY PRN 07/21/17 [History] Umeclidinium Tell [Incruse Ellipta] 1 puff INH DAILY 07/21/17 [History] guaiFENesin [Mucinex] 1,200 mg PO BID 07/21/17 [History] predniSONE 5 mg PO DAILY 07/21/17 [History] Cliradex Lid Scrubs 1 applic TID PRN 07/22/17 [History] Polyethylene Glycol 3350 [MiraLAX] 17 gm PO DAILY 07/22/17 [History] Docusate Sodium/Sennosides [Senokot-S] 2 each PO BEDTIME #60 tablet 07/27/17 [Rx ] Ergocalciferol (Vitamin D2) [Vitamin D2] 50,000 unit PO ASDIRECTED #15 cap 07/27 [Rx] LORazepam [Ativan] 1 mg PO Q6H #120 tablet 07/27/17 [Rx] Morphine 15 mg PO ASDIRECTED PRN #120 tab 07/27/17 [Rx] Temazepam [Restoril] 15 mg PO BEDTIME PRN #30 cap 07/27/17 [Rx] Patient Handouts: Chronic Respiratory Failure, Chronic Obstructive Pulmonary Disease, [facility], Hospice, About Your Loved One's Last Days Referrals: Ritchie Campo Jr, MD [Primary Care Provider] - (Follow-up in 1 week.) - Discharge Summary/Plan Comment DC Time >30 min.: Yes (45 mins) Discharge Summary/Plan Comment: Discharge to [place] with Comfort Measures Medications - General Info Date of Service: 07/27/17 Admission Dx/Problem (Free Text: Admission Diagnosis/Problem Admission Diagnosis/Problem COPD, Moderate chronic obstructive pulmonary disease Subjective Update: Follow Up Functional Status: Reports: Pain Controlled, Tolerating Diet, Ambulating, Urinating - Review of Systems General: Reports: Fatigue. Denies: Fever, Weakness, Malaise, Chills HEENT: Reports: No Symptoms Pulmonary: Reports: Shortness of Breath, Cough Cardiovascular: Reports: Dyspnea on Exertion. Denies: Chest Pain, Palpitations , Edema, Lightheadedness Gastrointestinal: Reports: Flatus. Denies: Abdominal Pain, Decreased Appetite, Difficulty Swallowing, Nausea, Vomiting Genitourinary: Reports: No Symptoms Musculoskeletal: Reports: No Symptoms Skin: Denies: Cyanosis, Mottled, Pallor, Diaphoresis, Rash Neurological: Reports: Difficulty Walking. Denies: Confusion, Weakness, Gait Disturbance Psychiatric: Denies: Depression, Anxiety, Agitation, Hallucinations, Homicidal Ideation Systems Review Comment: No significant overnight or acute issues. He is essentially the same. He has no new complaints. - Patient Data Vitals - Most Recent: Last Vital Signs Temp 37.2 C 07/27/17 08:32 Pulse 102 H 07/27/17 10:25 Resp 28 H 07/27/17 08:32 BP 135/79 07/27/17 10:25 Pulse Ox 97 07/27/17 09:19 Weight - Most Recent: 70.851 kg I&O - Last 24 hours: Intake & Output 07/26/17 07/27/17 07/27/17 22:59 06:59 14:59 Intake Total 1880 800 300 Output Total 1200 1800 Balance 680 -1000 300 Lab Results - Last 24 hrs: Laboratory Results - last 24 hr 07/27/17 07/27/17 Range/Units 05:40 05:40 WBC 9.69 H (4.23-9.07) K/mm3 RBC 4.20 L (4.63-6.08) M/mm3 Hgb 11.7 L (13.7-17.5) gm/L Hct 36.0 L (40.1-51.0) % MCV 85.7 (79.0-92.2) fl MCH 27.9 (25.7-32.2) pg MCHC 32.5 (32.2-35.5) g/dl RDW Std Deviation 46.8 H (35.1-43.9) fL Plt Count 291 (163-337) K/mm3 MPV 9.3 L (9.4-12.3) fl Neut % (Auto) 83.9 H (34.0-67.9) % Lymph % (Auto) 5.4 L (21.8-53.1) % [place] % (Auto) 9.8 (5.3-12.2) % Eos % (Auto) 0 L (0.8-7.0) Baso % (Auto) 0.0 L (0.1-1.2) % Neut # (Auto) 8.13 H (1.78-5.38) K/mm3 Lymph # (Auto) 0.52 L (1.32-3.57) K/mm3 [place] # (Auto) 0.95 H (0.30-0.82) K/mm3 Eos # (Auto) 0.00 L (0.04-0.54) K/mm3 Baso # (Auto) 0.00 L (0.01-0.08) K/mm3 Manual Slide Review Abnormal smear Sodium 137 (136-145) mEq/L Potassium 4.1 (3.5-5.1) mEq/L Chloride 102 (98-107) mEq/L Carbon Dioxide 29 (21-32) mEq/L Anion Gap 10.1 (5-15) BUN 23 H (7-18) mg/dL Creatinine 0.8 (0.7-1.3) mg/dL Est Cr Clr Drug Dosing 72.42 mL/min Estimated GFR (MDRD) > 60 (>60) mL/min BUN/Creatinine Ratio 28.8 H (14-18) Glucose 94 (83-115) mg/dL Calcium 8.5 (8.5-10.1) mg/dL Magnesium 2.2 (1.8-2.4) mg/dl C-Reactive Protein < 0.2 (<1.0) mg/dL Med Orders - Current: Current Medications Acetaminophen (Tylenol) 650 mg PO Q4H PRN PRN Reason: Pain Last Admin: 07/25/17 09:18 Dose: 650 mg Albuterol (Proventil Neb Soln) 2.5 mg NEB Q4H PRN PRN Reason: Shortness of Breath Last Admin: 07/23/17 14:38 Dose: 2.5 mg Albuterol/Ipratropium (Duoneb 3.0-0.5 Mg/3 Ml) 3 ml NEB QIDRT [facility] Last Admin: 07/27/17 09:19 Dose: 3 ml Benzocaine/Menthol (Cepacol Sore Throat) 1 lozenge MUCMEM Q4HR PRN PRN Reason: Sore Throat Last Admin: 07/25/17 12:21 Dose: 1 lozenge Benzonatate (Tessalon Perles) 200 mg PO BID [facility] Last Admin: 07/27/17 10:26 Dose: Not Given Budesonide/Formoterol Fumarate (Symbicort 160-4.5 Mcg) 0 gm INH BID [facility] Last Admin: 07/27/17 09:19 Dose: 2 puff Buspirone HCl (Buspar) 5 mg PO BID [facility] Last Admin: 07/27/17 10:24 Dose: 5 mg Cholecalciferol (Vitamin D3) 2,000 units PO DAILY [facility] Last Admin: 07/27/17 10:23 Dose: 2,000 units Ergocalciferol (Vitamin D2) 50,000 units PO We [facility] Last Admin: 07/26/17 12:28 Dose: 50,000 units Guaifenesin (Mucinex) 1,200 mg PO BID [facility] Last Admin: 07/27/17 10:21 Dose: 1,200 mg Hydralazine HCl (Apresoline) 20 mg IVPUSH Q6H PRN PRN Reason: Hypertension Last Admin: 07/22/17 14:40 Dose: 20 mg Latanoprost (Xalatan 0.005% Ophth Soln) 0 ml EYEBOTH BEDTIME [facility] Last Admin: 07/26/17 21:49 Dose: Not Given Lorazepam (Ativan) 0.5 mg PO BID [facility] Last Admin: 07/27/17 10:20 Dose: 0.5 mg Lorazepam (Ativan) 0.5 mg PO Q4H PRN PRN Reason: anxiety/SOB Magnesium Oxide (Magnesium Oxide) 400 mg PO BID [facility] Last Admin: 07/27/17 10:25 Dose: 400 mg Methylprednisolone Sodium Succinate (Solu-Medrol) 40 mg IVPUSH Q12H [facility] Last Admin: 07/27/17 10:26 Dose: 40 mg Metoprolol Succinate (Toprol Xl) 25 mg PO DAILY [facility] Last Admin: 07/27/17 10:25 Dose: 25 mg Metoprolol Tartrate (Lopressor) 5 mg IVPUSH Q6H PRN PRN Reason: heart rate Last Admin: 07/24/17 17:36 Dose: 5 mg Morphine Sulfate (Morphine) 15 mg PO TID [facility] Last Admin: 07/27/17 10:20 Dose: 15 mg Roflumilast 500 Mcg* (*Own Med) 500 mcg PO DAILY [facility] Last Admin: 07/27/17 10:32 Dose: 500 mcg Umeclidinium Tell (Incruse Ellipta)) 1 Puff)Own Med 1 puff INH DAILY [facility] Last Admin: 07/27/17 09:19 Dose: 1 puff Oxymetazoline HCl (Afrin Original 0.05% Nasal Wilkinson) 0 ml NASBOTH DAILY PRN PRN Reason: Nasal Dryness Last Admin: 07/26/17 17:43 Dose: 1 applic Pantoprazole Sodium (Protonix) 40 mg PO BID@0700,1700 [facility] Last Admin: 07/27/17 07:38 Dose: 40 mg Polyethylene Glycol (Miralax) 17 gm PO DAILY [facility] Last Admin: 07/27/17 10:17 Dose: 17 gm Saccharomyces Boulardii (Florastor) 250 mg PO BID [facility] Last Admin: 07/27/17 10:21 Dose: 250 mg Temazepam (Restoril) 15 mg PO BEDTIME PRN PRN Reason: Sleep Last Admin: 07/26/17 21:44 Dose: 15 mg Discontinued Medications Acetaminophen (Tylenol) 650 mg PO NOW ONE Stop: 07/21/17 17:45 Last Admin: 07/21/17 18:16 Dose: 650 mg Acetaminophen (Tylenol) 650 mg PO Q6H PRN PRN Reason: Pain/Fever Last Admin: 07/22/17 12:37 Dose: 650 mg Albuterol/Ipratropium (Duoneb 3.0-0.5 Mg/3 Ml) 3 ml NEB ONETIME ONE Stop: 07/21/17 16:23 Last Admin: 07/21/17 16:31 Dose: 3 ml Azithromycin (Zithromax) 500 mg PO DAILY [facility] Stop: 07/26/17 09:01 Last Admin: 07/26/17 09:30 Dose: 500 mg Benzonatate (Tessalon Perles) 100 mg PO ONETIME ONE Stop: 07/25/17 15:26 Last Admin: 07/25/17 15:59 Dose: 100 mg Budesonide/Formoterol Fumarate (Symbicort 160-4.5 Mcg) 0 gm INH BID [facility] Last Admin: 07/24/17 21:08 Dose: 2 puff Diphenhydramine HCl (Benadryl) 50 mg IVPUSH ONETIME ONE Stop: 07/21/17 19:04 Last Admin: 07/21/17 19:24 Dose: 50 mg Enoxaparin Sodium (Lovenox) 40 mg SUBCUT DAILY [facility] Last Admin: 07/23/17 08:47 Dose: Not Given Ergocalciferol (Vitamin D2) 50,000 units PO DAILY [facility] Last Admin: 07/26/17 12:27 Dose: Not Given Ergocalciferol (Vitamin D2) 50,000 units PO ONETIME ONE Stop: 07/25/17 21:01 Famotidine (Pepcid) 20 mg IVPUSH ONETIME ONE Stop: 07/21/17 19:04 Last Admin: 07/21/17 19:28 Dose: 20 mg Sodium Chloride (Normal Saline) 100 mls @ 65 mls/hr IV ASDIRECTED [facility] Last Admin: 07/21/17 19:48 Dose: 65 mls/hr Sodium Chloride (Normal Saline) 1,000 mls @ 75 mls/hr IV ASDIRECTED [facility] Last Admin: 07/24/17 07:54 Dose: 75 mls/hr Levofloxacin/Dextrose 750 mg/ (Premix) 150 mls @ 100 mls/hr IV ONETIME ONE Stop: 07/22/17 00:29 Last Admin: 07/21/17 23:38 Dose: 100 mls/hr Magnesium Sulfate 2 gm/ Premix 50 mls @ 25 mls/hr IV ONETIME ONE Stop: 07/23/17 12:02 Last Admin: 07/23/17 11:11 Dose: 25 mls/hr Levofloxacin/Dextrose 750 mg/ (Premix) 150 mls @ 100 mls/hr IV Q24H [facility] Last Admin: 07/23/17 21:37 Dose: 100 mls/hr Sodium Chloride (Normal Saline) 1,000 mls @ 999 mls/hr IV ONETIME ONE Stop: 07/24/17 13:35 Last Admin: 07/24/17 14:02 Dose: 999 mls/hr Sodium Chloride (Normal Saline) 1,000 mls @ 150 mls/hr IV ASDIRECTED [facility] Last Admin: 07/25/17 03:26 Dose: 150 mls/hr Iopamidol (Isovue-370 (76%)) 100 ml IVPUSH ONETIME ONE Stop: 07/21/17 19:12 Last Admin: 07/21/17 19:48 Dose: 100 ml Latanoprost (Xalatan 0.005% Ophth Soln) 0 ml EYEBOTH BEDTIME [facility] Last Admin: 07/24/17 21:01 Dose: 1 drop Lorazepam (Ativan) 0.5 mg IVPUSH ONETIME ONE Stop: 07/21/17 17:30 Last Admin: 07/21/17 17:35 Dose: 0.5 mg Lorazepam (Ativan) 0.5 mg PO Q4H PRN PRN Reason: anxiety/SOB Last Admin: 07/22/17 12:59 Dose: 0.5 mg Lorazepam (Ativan) 0.5 mg PO Q4H PRN PRN Reason: anxiety/SOB Lorazepam (Ativan) 1 mg IVPUSH ONETIME ONE Stop: 07/22/17 13:53 Last Admin: 07/22/17 14:01 Dose: 1 mg Lorazepam (Ativan) 1 mg IVPUSH ONETIME ONE Stop: 07/24/17 21:36 Last Admin: 07/24/17 21:51 Dose: 1 mg Lorazepam (Ativan) 0.5 mg PO .STK-MED ONE Stop: 07/24/17 07:54 Lorazepam (Ativan) 0.5 mg IVPUSH ONETIME ONE Stop: 07/25/17 20:43 Last Admin: 07/25/17 21:03 Dose: 0.5 mg Lorazepam (Ativan) 0.5 mg IVPUSH ONETIME ONE Stop: 07/26/17 21:01 Last Admin: 07/26/17 21:32 Dose: 0.5 mg Methylprednisolone Sodium Succinate (Solu-Medrol) 125 mg IVPUSH ONETIME ONE Stop: 07/21/17 16:23 Last Admin: 07/21/17 16:30 Dose: 125 mg Methylprednisolone Sodium Succinate (Solu-Medrol) 125 mg IVPUSH ONETIME ONE Stop: 07/21/17 19:04 Last Admin: 07/21/17 19:29 Dose: 125 mg Methylprednisolone Sodium Succinate (Solu-Medrol) 125 mg IVPUSH Q6H [facility] Last Admin: 07/23/17 14:54 Dose: 125 mg Methylprednisolone Sodium Succinate (Solu-Medrol) 125 mg IVPUSH Q8H [facility] Last Admin: 07/25/17 08:46 Dose: 125 mg Methylprednisolone Sodium Succinate (Solu-Medrol) 60 mg IVPUSH Q8H [facility] Last Admin: 07/25/17 11:39 Dose: Not Given Methylprednisolone Sodium Succinate (Solu-Medrol) 60 mg IVPUSH Q8H [facility] Last Admin: 07/26/17 17:38 Dose: 60 mg Metoprolol Succinate (Toprol Xl) 25 mg PO .STK-MED ONE Stop: 07/24/17 07:57 Mometasone Furoate/Formoterol Fumar (Dulera 200-5 Mcg) 2 puff IH BIDRT [facility] Last Admin: 07/25/17 05:47 Dose: Not Given Morphine Sulfate (Morphine) 15 mg PO Q8H PRN PRN Reason: pain Morphine Sulfate (Morphine) 1.5 mg IVPUSH ONETIME ONE Stop: 07/24/17 14:40 Last Admin: 07/24/17 14:58 Dose: 1.5 mg Morphine Sulfate (Morphine) 2 mg IVPUSH ONETIME ONE Stop: 07/25/17 20:43 Last Admin: 07/25/17 21:02 Dose: 2 mg Morphine Sulfate (Morphine) 2 mg IVPUSH ONETIME ONE Stop: 07/26/17 21:01 Last Admin: 07/26/17 21:31 Dose: 2 mg Guaifenesin [Mucinex ] Er 600 MgOwn Med 1,200 mg PO BID [facility] Last Admin: 07/24/17 23:05 Dose: Not Given Pantoprazole Sodium (Protonix) 40 mg PO BID ADRIANO Last Admin: 07/24/17 20:52 Dose: 40 mg Sodium Chloride (Saline Flush) 10 ml FLUSH ASDIRECTED PRN PRN Reason: Keep Vein Open Last Admin: 07/21/17 16:30 Dose: 10 ml Sodium Chloride (Saline Flush) 10 ml FLUSH ONETIME PRN PRN Reason: IV FLUSH Last Admin: 07/21/17 19:48 Dose: 10 ml Temazepam (Restoril) 7.5 mg PO BEDTIME PRN PRN Reason: Sleep Last Admin: 07/23/17 21:28 Dose: 7.5 mg Temazepam (Restoril) 15 mg PO BEDTIME PRN PRN Reason: Sleep Last Admin: 07/25/17 20:51 Dose: 15 mg Trazodone HCl (Trazodone) 50 mg PO BEDTIME PRN PRN Reason: Sleep Last Admin: 07/24/17 02:06 Dose: 50 mg - Exam Quality Assessment: Reports: Supplemental Oxygen General: Reports: Alert, Oriented, Cooperative, Mild Distress HEENT: Reports: Pupils Equal, Pupils Reactive, EOMI, Mucous Membr. Moist/[place] Neck: Reports: Supple, Trachea Midline, No Thyromegaly, Lymphadenopathy Lungs: Reports: Normal Respiratory Effort, Other (Poor air entry and exit) Cardiovascular: Reports: Other (distant heart sounds) GI/Abdominal Exam: Normal Bowel Sounds, Soft, Non-Tender, No Organomegaly, No Distention, No Abnormal Bruit, No Mass (Male) Exam: Deferred Rectal (Males) Exam: Deferred Back Exam: Reports: Normal Inspection, Decreased Range of Motion Extremities: Normal Inspection, Normal Range of Motion, Non-Tender, No Pedal Edema, Normal Capillary Refill Skin: Reports: Warm, Dry, Intact Neurological: Reports: No New Focal Deficit Psy/Mental Status: Reports: Alert, Normal Affect, Normal Mood. Denies: Anxious , Depressed, Agitated, Suicidal Ideation, Homicidal Ideation, Hallucinations, Withdrawal Symptoms *Q Meaningful Use (DIS) - VTE *Q VTE Criteria *Q: - Stroke *Q Stroke Criteria *Q: - AMI *Q AMI Criteria *Q:
== END 2017-07-27 14:25 | disposition other institution (70) | DRG 190 ==
LOC: JD.ED 16:03 → SUPCPDRO 16:03 → JD.MS 21:12 → UNDOADMOB 21:12 → JD.MS 21:22 → UNDOADMOB 21:22 → OBSVTOIN 07-23 → INTOOBSV 07-23 → OBSVTOIN 07-23 10:53 → JD.MS 07-23 10:53 → UNDODISIN 07-27 14:25
PROVIDERS: ADMIT Internal Medicine Cardiovascular Disease; ATTEND Internal Medicine Cardiovascular Disease
DX: J44.1 Chronic obstructive pulmonary disease with (acute) exacerbation (principal); J96.21 Acute and chronic respiratory failure with hypoxia; R51 Headache; E87.1 Hypo-osmolality and hyponatremia; K50.90 Crohn's disease, unspecified, without complications; M62.81 Muscle weakness (generalized); E55.9 Vitamin D deficiency, unspecified; D64.9 Anemia, unspecified; R26.81 Unsteadiness on feet; R53.1 Weakness; Z91.041 Radiographic dye allergy status; Z79.899 Other long term (current) drug therapy; I10 Essential (primary) hypertension; F41.8 Other specified anxiety disorders; K21.9 Gastro-esophageal reflux disease without esophagitis; Z87.891 Personal history of nicotine dependence; Z99.81 Dependence on supplemental oxygen; Z79.52 Long term (current) use of systemic steroids; Z66 Do not resuscitate
CPT/HCPCS: 36415 ×2; 36600; 70486; 71045; 71275; 80048; 80053; 82803; 83605; 83735 ×2; 84484; 85025 ×2; 86140; 86738; 87486; 87493 ×2; 87581; 87633; 87641; 87798; 87804 ×2; 87899; 89055; 93005 ×3; 94640 ×7; 94761; 96374; 96375; 96376; 99285; A9270 ×9; J0360; J1200; J1956; J2060 ×2; J2930 ×6; J7030; J7040 ×2; J7050 ×2; Q9967; 71046; 71046-26; 82272; 82306; 82607; 82746; 82947; 83540; 84443; 84466; 93010; 94667; 94668; 94760; 96361; 96365; 97116-GP; 97162-GP; 97165-GO; 97530-GO; 97530-GP; 99220; 99224; 99232; 99239; G0378; J2270; J2920; J3475; J3490